=== PATIENT | male | born 1965 | race Caucasian/White ===

== ENCOUNTER 2018-02-23 14:17 | Inpatient (IN) ==
[2018-02-23] MEDS ORDERED: GADOBUTROL 10 MMOL/10 ML VIAL IV ONE (14:18)
[2018-02-23] MEDS ORDERED: PIPERACILLIN SODIUM/TAZOBACTAM 3.375 GM in DEXTROSE 5% IN WATER 50 ML IV ONE (14:46)
[2018-02-23] MEDS ORDERED: VANCOMYCIN PER PHARMACY IV ONE (14:46)
[2018-02-23] MEDS ORDERED: 0.9 % SODIUM CHLORIDE 1,000 ML IV ONE (14:55)
[2018-02-23] MEDS ORDERED: VANCOMYCIN 1,500 MG in 0.9 % SODIUM CHLORIDE 500 ML IV ONE (15:15)
[2018-02-23 15:16] LABS: Basophils # (Auto) 0 K/mcL (0.0-0.3); Basophils % (Auto) 0.3 % (0.0-2.0); Eosinophils # (Auto) 0.1 K/mcL (0.0-0.7); Eosinophils % (Auto) 1.7 % (0.0-7.0); Granulocytes % (Auto) 76.6 % (38.0-78.0); Lymphocytes # (Auto) 1.3 K/mcL (1.5-4.8); Lymphocytes % (Auto) 16.7 % (15.5-49.0); Mean Cell Volume 86.6 fL (80.0-100.0); Mean Corpuscular HGB Conc 33.8 g/dL (31.0-36.0); Mean Corpuscular Hemoglobin 29.3 pg (26.0-34.0); Monocytes # (Auto) 0.4 K/mcL (0.1-0.9); Monocytes % (Auto) 4.7 % (1.0-12.0); Platelet Count 229 K/mcL (140-440); RBC 4.69 M/mcL (4.50-5.90); Red Cell Distribution Width 15.1 % (11.5-14.5)
[2018-02-23] MEDS ORDERED: INSULIN REGULAR, HUMAN 1 UNIT/0.01 ML UNIT SQ ONE (15:23)
[2018-02-23 15:38] LABS: ALT/SGPT 18 U/l (0-40); Albumin 4.2 gm/dL (3.2-5.2); Albumin/Globulin Ratio 1.2 (1.0-2.3); Alkaline Phosphatase 159 U/L (39-117); Blood Urea Nitrogen 17 mg/dl (6-20)
--- NOTE | 2018-02-23 16:10 | XRay Report ---
HISTORY: Reason for Exam:foot pain, ulcer, edema FINDINGS: There is a large ulceration in the skin along the plantar surface of the foot, beneath the first metatarsal. There is no associated bone erosion or periosteal elevation. There are multiple postsurgical or posttraumatic deformities in the metatarsals and phalanges. The head of the first metatarsal is abnormally small and the neck is angulated. There is fragmentation of the proximal phalanx of the first toe. Most of the distal phalanx of the first toe has been removed or reabsorbed. There is chronic near complete resorption at the base of the proximal phalanx of the second toe. This is dislocated medially. The head of the third metatarsal is absent and there is partial resorption at the base of the proximal phalanx of the third toe. The fourth and fifth toes are relatively normal. Tarsal bones are normal. IMPRESSION: Large soft tissue ulceration beneath the first metatarsal but without evidence of osteomyelitis Deformities in the first second and third metatarsals and toes which may be from prior surgery or prior episodes of osteomyelitis Interpreted and Authenticated by: Remington Meadows 02/23/18
--- NOTE | 2018-02-23 16:39 | Emergency Department Note ---
Wound/Laceration HPI - General Chief Complaint: Wound/Laceration Stated Complaint: diabetic foot wound Time Seen by Provider: 02/23/18 14:27 Source: patient, family Mode of arrival: wheelchair Limitations: no limitations - History of Present Illness HPI Narrative: 52-year-old male presents with a infected decubitus ulcer to the right foot. He has been going to wound care for this ulcer for the last 3 months. Over the last 10 days it has been infected. He has tried oral antibiotics and has been seeing wound care outpatient however he is not improving and it is getting worse. He was sent here by Dr. castellanos. No fever chills. No nausea, vomiting , or diarrhea. States it is very odorous and draining. Just prior to arrival he did see Dr. castellanos of the wound care clinic and they did do a debridement and redressed it just prior to his arrival. He is a diabetic and states his blood sugars have been running in the 400s at least the last week or so. - Related Data Home Medications Medication Instructions Recorded Confirmed Lisinopril [Zestril] 30 mg PO DAILY 07/15/16 02/23/18 Simvastatin [Zocor] 20 mg PO DAILY 07/15/16 02/23/18 metFORMIN HCL [Fortamet] 1,000 mg PO BID 07/15/16 02/23/18 Cholecalciferol (Vitamin D3) 1,000 unit PO DAILY 02/23/18 02/23/18 [Vitamin D] Exenatide [Byetta] 10 mcg SQ BID 02/23/18 02/23/18 Hydrochlorothiazide [Oretic] 25 mg PO DAILY 02/23/18 02/23/18 Insulin Detemir [Levemir] 44 unit SQ BID 02/23/18 02/23/18 Testosterone Cypionate [Testone 200 mg IM Q2W 02/23/18 02/23/18 Cik] Allergies Allergy/AdvReac Type Severity Reaction Status Date / Time No Known Drug Allergies Allergy Verified 07/15/16 10:33 Review of Systems All systems ED: reviewed and negative except as stated. Past Medical History - Past Medical History Medical history: Reports: DM, hypertension Surgical history ED: Reports: other (Several orthopedic surgeries including hands and knees) - Social History smoking status: Never smoker Alcohol use: Reports: Rarely Drug use: Reports: none Physical Exam Limitations: no limitations General appearance: alert, in no apparent distress Head: atraumatic, normocephalic, normal inspection Eye: Present: normal appearance. Absent: conjunctival injection ENT: mucous membranes moist Chest: Present: normal inspection, symmetric chest wall rise Respiratory: Present: normal lung sounds bilaterally. Absent: respiratory distress, wheezes, accessory muscle use Cardiovascular: Present: regular rate, normal heart sounds Abdominal: Present: soft, normal bowel sounds. 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 Dressing from wound care is intact. Odor is present there is mild warmth to the right foot diffusely.) Neurological: Present: alert, oriented X3 Psychiatric: Present: normal affect, normal mood Skin: Present: warm, dry, normal color. Absent: intact (See extremity assessment) Course Course Narrative: @1630 I did speak the hospitalist, Dr. Bush, who agrees to see and admit the patient. IV antibiotics have been started and we have ordered an MRI and they will get him in as soon as possible Vital Signs Temperature 97.7 F 02/23/18 14:18 Pulse Rate 98 H 02/23/18 14:18 Respiratory Rate 16 02/23/18 14:18 Blood Pressure 124/78 02/23/18 14:18 Pulse Oximetry (%) 98 02/23/18 14:18 Temperature 97.7 F 02/23/18 14:18 Pulse Rate 85 02/23/18 16:46 Respiratory Rate 21 02/23/18 16:46 Blood Pressure 145/82 02/23/18 16:46 Pulse Oximetry (%) 97 02/23/18 16:46 Wound/Laceration - Lab Data Lab results reviewed: Yes I reviewed the patient's lab results. Result diagrams: 02/23/18 14:40 02/23/18 14:40 Lab Results 02/23/18 02/23/18 02/23/18 Range/Units 14:40 14:40 14:40 WBC 7.6 (4.5-11.0) K/mcL RBC 4.69 (4.50-5.90) M/mcL Hgb 13.7 (13.5-16.5) g/dL Hct 40.7 L (41.0-55.0) % MCV 86.6 (80.0-100.0) fL MCH 29.3 (26.0-34.0) pg MCHC 33.8 (31.0-36.0) g/dL RDW 15.1 H (11.5-14.5) % Plt Count 229 (140-440) K/mcL MPV 8.1 (7.4-10.4) fL Gran % 76.6 (38.0-78.0) % Lymph % (Auto) 16.7 (15.5-49.0) % Childress % (Auto) 4.7 (1.0-12.0) % Eos % (Auto) 1.7 (0.0-7.0) % Baso % (Auto) 0.3 (0.0-2.0) % Gran # 5.8 (1.8-8.0) K/mcL Lymph # (Auto) 1.3 L (1.5-4.8) K/mcL Childress # (Auto) 0.4 (0.1-0.9) K/mcL Eos # (Auto) 0.1 (0.0-0.7) K/mcL Baso # (Auto) 0 (0.0-0.3) K/mcL VBG Lactic Acid 1.9 (0.5-2.2) mmol/L Sodium 133 (133-145) mmol/L Potassium 4.4 (3.3-5.1) mmol/L Chloride 91 L (96-108) mmol/L Carbon Dioxide 29 (22-30) mmol/L Anion Gap 13.0 (8-16) BUN 17 (6-20) mg/dl Creatinine 1.0 (0.7-1.2) mg/dl GFR Calculation 87 Glucose 467 H* (70-105) mg/dL Calcium 9.7 (8.6-10.4) mg/dl Total Bilirubin 0.7 (0.0-1.0) mg/dL AST 14 (0-37) U/l ALT 18 (0-40) U/l Alkaline Phosphatase 159 H (39-117) U/L Total Protein 7.8 (5.9-8.4) gm/dL Albumin 4.2 (3.2-5.2) gm/dL Globulin 3.6 (2.2-3.7) gm/dL Albumin/Globulin Ratio 1.2 (1.0-2.3) - Radiology Data Radiology results reviewed: Yes I reviewed the patient's radiology results. Disposition Pt seen by [employer]/PA only: Yes Clinical Impression: Diabetes, Foot ulcer, Decubitus ulcer, infected Disposition: Xfer As Inpt ([facility]) Condition: Fair Referrals: Kay Anglin ARNP [Primary Care Provider] - Oren Corey MD [Physician] - Time of Disposition: 16:40
--- NOTE | 2018-02-23 17:22 | Emergency Department Note ---
ED Note Addendum Note Addendum: Dr. Verde is here to to give report on his patient will whom he would like to have admitted we will do a debridement of the ulceration. She has been examined and agree with the diagnosis and treatment patient to be admitted to Dr. Bush service
[2018-02-23] MEDS ORDERED: ACETAMINOPHEN 325 MG TABLET PO PRN (18:47)
[2018-02-23] MEDS ORDERED: VANCOMYCIN PER PHARMACY IV SCH (18:47)
[2018-02-23] MEDS ORDERED: POTASSIUM CHLORIDE 20 MEQ PACKET PO PRN (18:47)
[2018-02-23] MEDS ORDERED: MAGNESIUM HYDROXIDE 30 ML ORAL.SUSP PO PRN (18:47)
[2018-02-23] MEDS ORDERED: ONDANSETRON 4 MG/2 ML VIAL IV PRN (18:47)
[2018-02-23] MEDS ORDERED: DEXTROSE 31 GM ORAL.SUSP PO PRN (18:47)
[2018-02-23] MEDS ORDERED: DEXTROSE 50% 50 ML VIAL IV PRN (18:47)
[2018-02-23] MEDS ORDERED: ACETAMINOPHEN 1,000 MG/100 ML BOTTLE IV PRN (18:47)
--- NOTE | 2018-02-23 18:47 | Magnetic Resonance Report ---
History: Diabetic foot ulcer on the plantar surface and status post prior multiple debridement surgeries Technique: Multiplanar imaging was performed using multiple pulse sequences. Findings: There is a moderate-sized ulceration in the skin along the plantar surface of the foot, beneath the proximal and mid shaft of the first and second metatarsals. There is significant cellulitis around the air filled crater and significant thickening of the skin on the plantar surface of the foot. There is no evidence of an abscess. Inflammation involves the plantar aponeurosis and the flexor tendons. There are significant deformities of the first, second and third metatarsals as well as the proximal and distal phalanx of the first toe and the proximal phalanges of the second and third toes. These are described in more detail on the preceding x-ray of the foot. The remaining bones have normal signal in the marrow, without evidence of osteomyelitis. There is no acute fracture. Mild subcutaneous edema seen along the dorsal side of the foot and around the ankle. Impression: Moderate cellulitis along the plantar surface of the foot, surrounding a large skin ulceration located beneath the first and second metatarsals No evidence of acute osteomyelitis or abscess Interpreted and Authenticated by: Remington Meadows 02/23/18
--- NOTE | 2018-02-23 19:38 | Internal Med History&Physical ---
Medical - H&P: [facility] Patient information: Note initiated : 02/23/18 at 7:34 pm Service Date, if different from initiated Date: [] Patient: Bro Malave a 52 y/o M admitted on 02/23/18 for diabetic foot wound. Chief Complaint: [] Chief complaint: Right foot nonhealing ulcer History of present illness: Mr. 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 Patient has not been using his orthotic shoe and over the last few weeks has noted increasing purulence and discharge around the foot ulcer. He has been followed up with Dr. Corey wound care. During today's evaluation patient underwent debridement and was subsequently [facility] for admission light of poor outpatient response to treatment and persistent cellulitis. Initial workup in the ER was essentially unremarkable. Patient was started on vancomycin and Zosyn given history of MRSA. Cultures were sent from wound care clinic during debridement. Wound care physician Dr. Corey will be following during hospitalization.x-ray lower extremity/MRI" unremarkable for acute osteomyelitis/abscess however significant for cellulitis Hospitalist service was consulted for evaluation and admission At the time of evaluation patient is accompanied with her daughter and . He was able to answer most questions. Patient has had amputation in 1999 and subsequently [address] Cormier. He has been continually followed by wound care. On the last few days he has noticed increasing discharge/purulence along with increasing size of the ulcer. He denies associated fevers shaking chills or leg redness. He denies any other joint swelling and rash headache or photophobia. He denies recent trauma but has been continually bearing weight and not using his orthotics review of systems 10 point review of system was performed and is negative except for ones discussed above Medical - H&P: PMH Medical history: insulin-dependent diabetes peripheral vascular disease Hyperlipidemia Hypertension prior amputation right fourth and fifth toe Social history: lives with family Nonsmoker nondrinker No history of substance abuse Medical - H&P: Meds Home Medications Medication Instructions Recorded Confirmed Type Lisinopril [Zestril] 30 mg PO DAILY 07/15/16 02/23/18 History Simvastatin [Zocor] 20 mg PO DAILY 07/15/16 02/23/18 History metFORMIN HCL [Fortamet] 1,000 mg PO BID 07/15/16 02/23/18 History Cholecalciferol (Vitamin D3) 1,000 unit PO DAILY 02/23/18 02/23/18 History [Vitamin D] Exenatide [Byetta] 10 mcg SQ BID 02/23/18 02/23/18 History Hydrochlorothiazide [Oretic] 25 mg PO DAILY 02/23/18 02/23/18 History Insulin Detemir [Levemir] 44 unit SQ BID 02/23/18 02/23/18 History Testosterone Cypionate [Testone 200 mg IM Q2W 02/23/18 02/23/18 History Cik] Allergies Allergy/AdvReac Type Severity Reaction Status Date / Time No Known Drug Allergies Allergy Verified 07/15/16 10:33 Medical - H&P: Exam - Constitutional Vitals: Temp Pulse Resp BP Pulse Ox 97.7 F 86 18 136/60 96 02/23/18 14:18 02/23/18 17:16 02/23/18 17:16 02/23/18 17:16 02/23/18 17:16 General appearance: morbidly obese Exam: pupils symmetric oral cavity dry No ear or nose discharge neck no lymphadenopathy S1 and S2 regular rhythm chest clear to auscultation Abdomen soft pendulous Right lower extremity foot covered in dressing post-debridement No lymphedema cyanosis or clubbing Skin no suspicious lesion Psych alert cooperative Neuro nonfocal Medical - H&P: Reslt - Labs CBC & Chem 7: 02/23/18 14:40 02/23/18 14:40 Labs: Short CBC 02/23/18 Range/Units 14:40 WBC 7.6 (4.5-11.0) K/mcL Hgb 13.7 (13.5-16.5) g/dL Hct 40.7 L (41.0-55.0) % Plt Count 229 (140-440) K/mcL BMP 02/23/18 14:40 Sodium 133 Potassium 4.4 Chloride 91 L Carbon Dioxide 29 BUN 17 Creatinine 1.0 Glucose 467 H* Calcium 9.7 Liver Function 02/23/18 Range/Units 14:40 Total Bilirubin 0.7 (0.0-1.0) mg/dL AST 14 (0-37) U/l ALT 18 (0-40) U/l Alkaline Phosphatase 159 H (39-117) U/L Albumin 4.2 (3.2-5.2) gm/dL - Impressions MRI right foot-no evidence ostiomyelitis. Surrounding cellulitis Medical - H&P: A/P (1) Non-healing ulcer of right foot Current visit: Yes Status: Acute * Nonhealing right foot ulcer. Continue antibiotic coverage. Status post debridement by wound care physician. Admit as observation. PICC line placement. wound care physician on board * right lower wrist with cellulitis-continue antibiotic coverage. PICC line placement * Poorly controlled DM type II-continue home regime including Byetta/Detemir/ sliding-scale insulin/metformin * Hypertension on lisinopril/thiazide * hyperlipidemia on statin * Full code * Prophylaxis heparin plan * antibiotic coverage * PICC line placement * Wound care consult * pre-existing medical condition management as above * Admitted as observation
[2018-02-23] MEDS: SENNOSIDES/DOCUSATE SODIUM 1 TAB TABLET PO SCH (20:26)
[2018-02-23] MEDS: HEPARIN 5,000 UNIT/ML VIAL SQ SCH (20:26)
[2018-02-23] MEDS: DOCUSATE SODIUM 100 MG CAPSULE PO SCH (20:26)
[2018-02-23] MEDS: INSULIN GLARGINE, HUMAN 1 UNIT/0.01 ML SQ SCH (20:26)
[2018-02-23] MEDS: 0.9 % SODIUM CHLORIDE 10 ML SYRINGE IV SCH (20:27)
[2018-02-23] MEDS: INSULIN LISPRO 1 UNIT/0.01 ML UNIT SQ SCH (20:27)
[2018-02-23] MEDS ORDERED: INSULIN DETEMIR SQ SCH (21:00)
[2018-02-24] MEDS: PIPERACILLIN SODIUM/TAZOBACTAM 3.375 GM in DEXTROSE 5% IN WATER 50 ML IV SCH ×5 (00:26→23:15)
[2018-02-24] MEDS: 0.9 % SODIUM CHLORIDE 10 ML SYRINGE IV SCH ×4 (06:01→21:12)
[2018-02-24 06:37] LABS: Mean Cell Volume 85.8 fL (80.0-100.0); Mean Corpuscular HGB Conc 34.5 g/dL (31.0-36.0); Mean Corpuscular Hemoglobin 29.5 pg (26.0-34.0); Platelet Count 188 K/mcL (140-440); Red Cell Distribution Width 15.1 % (11.5-14.5)
[2018-02-24 07:22] LABS: ALT/SGPT 15 U/l (0-40); Albumin 3.2 gm/dL (3.2-5.2); Alkaline Phosphatase 123 U/L (39-117); Bilirubin,Direct < 0.2 mg/dL (0.0-0.3); Blood Urea Nitrogen 14 mg/dl (6-20); Gamma Glutamyl Transpeptidase 69 U/L (8-61); Uric Acid 7.5 mg/dL (2.5-8.0)
[2018-02-24] MEDS ORDERED: EXENATIDE 10 MCG SC SCH (07:30)
[2018-02-24 07:48] LABS: Eosinophils % (Manual) 2 % (0-7); Lymphocytes % 28 % (15-49); Monocytes % (Manual) 5 % (1-12); Platelet Estimate NORMAL (NORMAL); RBC Morphology ABNORM (NORMAL); Segmented Neutrophils % 63 % (38-78)
[2018-02-24] MEDS: metFORMIN 500 MG TABLET PO SCH ×2 (08:00→18:00)
[2018-02-24] MEDS: INSULIN LISPRO 1 UNIT/0.01 ML UNIT SQ SCH ×4 (08:54→21:06)
[2018-02-24] MEDS: sitaGLIPtin 100 MG TABLET PO SCH (08:57)
[2018-02-24] MEDS: LISINOPRIL 10 MG TABLET PO SCH (08:58)
[2018-02-24] MEDS: DOCUSATE SODIUM 100 MG CAPSULE PO SCH ×2 (08:58→21:06)
[2018-02-24] MEDS: MULTIVIT,THER IRON,CA,FA & MIN 1 TABLET PO SCH (08:58)
[2018-02-24] MEDS: HYDROCHLOROTHIAZIDE 25 MG TABLET PO SCH (08:58)
[2018-02-24] MEDS: HEPARIN 5,000 UNIT/ML VIAL SQ SCH ×2 (08:59→21:06)
[2018-02-24] MEDS ORDERED: SIMVASTATIN 20 MG TABLET PO SCH (09:00)
[2018-02-24] MEDS: INSULIN GLARGINE, HUMAN 1 UNIT/0.01 ML SQ SCH ×2 (09:00→21:07)
[2018-02-24] MEDS: VANCOMYCIN 1,500 MG in 0.9 % SODIUM CHLORIDE 500 ML IV SCH ×2 (09:00→20:54)
--- NOTE | 2018-02-24 09:04 | General Surgery Consult Note ---
History of Present Illness Patient information: Note initiated : 02/24/18 at 9:00 am Service Date, if different from initiated Date: [] Patient: Bro Malave 52 y/o M admitted on 02/23/18 for diabetic foot wound. Chief Complaint: [] Consult date: 02/24/18 Requesting physician: Milad Guajardo (Wound Care / HBO) History of present illness: 52/M CSSSI, DFU right plantar Mixon 3 with necrotizing skin and sub cutaneous infection with SEPSIS and uncontrolled diabetes. Patient was referred from wound center to ER and now admitted to Hospitalist service for further management and continuity of care. I reviewed him lab results and imaging studies of RIGHT foot MRI and X Ray. I discussed the plan of care with Katlin IBARRA I/C and with Dr. Guajardo, Hospitalist Physician. Medications and Allergies Home Medications Medication Instructions Recorded Confirmed Type Lisinopril [Zestril] 30 mg PO DAILY 07/15/16 02/23/18 History Simvastatin [Zocor] 20 mg PO DAILY 07/15/16 02/23/18 History metFORMIN HCL [Fortamet] 1,000 mg PO BID 07/15/16 02/23/18 History Cholecalciferol (Vitamin D3) 1,000 unit PO DAILY 02/23/18 02/23/18 History [Vitamin D] Exenatide [Byetta] 10 mcg SQ BID 02/23/18 02/23/18 History Hydrochlorothiazide [Oretic] 25 mg PO DAILY 02/23/18 02/23/18 History Insulin Detemir [Levemir] 44 unit SQ BID 02/23/18 02/23/18 History Allergies Allergy/AdvReac Type Severity Reaction Status Date / Time No Known Drug Allergies Allergy Verified 07/15/16 10:33 Exam Temp Pulse Resp BP Pulse Ox 97.7 F 65 16 127/74 95 02/24/18 04:00 02/24/18 04:00 02/24/18 04:00 02/24/18 04:00 02/24/18 04:00 - General physical appearance well developed, well nourished, no distress, no pain - Eyes PERRL, normal ocular movement - ENT normal pinna, normal nares, normal mucosa, no congestion - Head Head exam IM: Present: atraumatic, normal inspection, normocephalic - Neck no masses, no bruits, trachea midline, no lymphadectomy, no venous distension - Cardiovascular Cardiovascular exam IM: Present: normal rate and rhythm - Respiratory normal expansion, normal respiratory effort, clear to auscultation - Abdomen Abdomen: Present: soft, non tender, bowel sounds - Integumentary Present: other (RIGHT plantar necrotizing wound with cellulitis and DFU Mixon 3. ) - Neurologic Present: other (Non focal neurological examination. DIABETES with polyneuropathy of feet, ankle and lower legs. ) - Musculoskeletal Present: normal posture (NON pal bearing on RIGHT foot. ), other - Psychiatric Present: oriented to time, oriented to person, oriented to place, speech is normal, memory intact Results - Labs 02/26/18 05:20 02/26/18 05:20 Abnormal lab results 02/23/18 02/23/18 02/24/18 Range/Units 14:40 14:40 04:45 RBC 4.00 L (4.50-5.90) M/mcL Hgb 11.8 L (13.5-16.5) g/dL Hct 40.7 L 34.3 L (41.0-55.0) % RDW 15.1 H 15.1 H (11.5-14.5) % Lymph # (Auto) 1.3 L (1.5-4.8) K/mcL RBC Morphology Abnorm A (NORMAL) Polychromasia 1+ A (NONE SEEN) Chloride 91 L (96-108) mmol/L Glucose 467 H* (70-105) mg/dL Magnesium (1.6-2.5) mg/dL GGT (8-61) U/L Alkaline Phosphatase 159 H (39-117) U/L Triglycerides (<150) mg/dl 02/24/18 Range/Units 04:45 RBC (4.50-5.90) M/mcL Hgb (13.5-16.5) g/dL Hct (41.0-55.0) % RDW (11.5-14.5) % Lymph # (Auto) (1.5-4.8) K/mcL RBC Morphology (NORMAL) Polychromasia (NONE SEEN) Chloride (96-108) mmol/L Glucose 288 H (70-105) mg/dL Magnesium 1.5 L (1.6-2.5) mg/dL GGT 69 H (8-61) U/L Alkaline Phosphatase 123 H (39-117) U/L Triglycerides 506 H (<150) mg/dl Diabetes panel 02/23/18 02/24/18 Range/Units 14:40 04:45 Sodium 133 136 (133-145) mmol/L Potassium 4.4 3.8 (3.3-5.1) mmol/L Chloride 91 L 97 (96-108) mmol/L Carbon Dioxide 29 26 (22-30) mmol/L BUN 17 14 (6-20) mg/dl Creatinine 1.0 0.9 (0.7-1.2) mg/dl Glucose 467 H* 288 H (70-105) mg/dL Calcium 9.7 9.1 (8.6-10.4) mg/dl AST 14 15 (0-37) U/l ALT 18 15 (0-40) U/l Alkaline Phosphatase 159 H 123 H (39-117) U/L Total Protein 7.8 6.4 (5.9-8.4) gm/dL Albumin 4.2 3.2 (3.2-5.2) gm/dL Triglycerides 506 H (<150) mg/dl Calcium panel 02/23/18 02/24/18 Range/Units 14:40 04:45 Calcium 9.7 9.1 (8.6-10.4) mg/dl Phosphorus 3.9 (2.7-4.5) mg/dL Albumin 4.2 3.2 (3.2-5.2) gm/dL Pituitary panel 02/23/18 02/24/18 Range/Units 14:40 04:45 Sodium 133 136 (133-145) mmol/L Potassium 4.4 3.8 (3.3-5.1) mmol/L Chloride 91 L 97 (96-108) mmol/L Carbon Dioxide 29 26 (22-30) mmol/L BUN 17 14 (6-20) mg/dl Creatinine 1.0 0.9 (0.7-1.2) mg/dl Glucose 467 H* 288 H (70-105) mg/dL Calcium 9.7 9.1 (8.6-10.4) mg/dl Adrenal panel 02/23/18 02/24/18 Range/Units 14:40 04:45 Sodium 133 136 (133-145) mmol/L Potassium 4.4 3.8 (3.3-5.1) mmol/L Chloride 91 L 97 (96-108) mmol/L Carbon Dioxide 29 26 (22-30) mmol/L BUN 17 14 (6-20) mg/dl Creatinine 1.0 0.9 (0.7-1.2) mg/dl Glucose 467 H* 288 H (70-105) mg/dL Calcium 9.7 9.1 (8.6-10.4) mg/dl Total Bilirubin 0.7 0.6 (0.0-1.0) mg/dL AST 14 15 (0-37) U/l ALT 18 15 (0-40) U/l Alkaline Phosphatase 159 H 123 H (39-117) U/L Total Protein 7.8 6.4 (5.9-8.4) gm/dL Albumin 4.2 3.2 (3.2-5.2) gm/dL All other labs normal. Assessment and Plan (1) Sepsis, polymicrobial Status: Acute Priority: High (2) Sepsis affecting skin Status: Acute Priority: High Comment: Assessment: DFU Mixon 3 with CSSSI and uncontrolled diabetes and Necrotizing skin infection of RIGHT foot. Plan: Patient is status post INITIAL debridement in clinic and now admitted to Med Surg Floor for ongoing continuity of wound care, IV antibiotics and HBOT Will be following this patient whilst he is in hospital, and for HBOT.
[2018-02-24] MEDS: MAGNESIUM SULFATE 2 GM/50 ML BAG IV PRN (11:23)
--- NOTE | 2018-02-24 14:14 | Internal Med Progress Note ---
Medical - PN: Subj Patient information: Note initiated : 02/24/18 at 2:11 pm Service Date, if different from initiated Date: [] Patient: Bro Malave a 52 y/o M admitted on 02/24/18 for diabetic foot wound. Chief Complaint: [] Interval history: Mr. 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 Patient has not been using his orthotic shoe and over the last few weeks has noted increasing purulence and discharge around the foot ulcer. He has been followed up with Dr. Corey wound care. During today's evaluation patient underwent debridement and was subsequently directed to [facility] for admission light of poor outpatient response to treatment and persistent cellulitis. Initial workup in the ER was essentially unremarkable. Patient was started on vancomycin and Zosyn given history of MRSA. Cultures were sent from wound care clinic during debridement. Wound care physician Dr. Corey will be following during hospitalization.x-ray lower extremity/MRI" unremarkable for acute osteomyelitis/abscess however significant for cellulitis Hospitalist service was consulted for evaluation and admission At the time of evaluation patient is accompanied with her daughter and . He was able to answer most questions. Patient has had amputation in 1999 and subsequently [address] Cormier. He has been continually followed by wound care. On the last few days he has noticed increasing discharge/purulence along with increasing size of the ulcer. He denies associated fevers shaking chills or leg redness. He denies any other joint swelling and rash headache or photophobia. He denies recent trauma but has been continually bearing weight and not using his orthotics 02/24- putrid discharge plantar aspect. Case reviewed with wound care physician Dr. Corey. Patient will be started on hyperbaric oxygen treatment per Dr. Corey. Doppler lower extremity ultrasound pending. On broad antibiotic coverage. Place PICC line for IV antibiotics. Transfer to inpatient status due to failed outpatient treatment and worsening necrotizing cellulitis. Include gram-negative and anaerobic coverage. - Constitutional Vitals: Vital Signs Temp Pulse Resp BP Pulse Ox 97.5 F 65 16 127/72 96 02/24/18 12:29 02/24/18 12:00 02/24/18 12:00 02/24/18 12:00 02/24/18 12:00 Period Temp Pulse Resp BP Sys/Crzu Pulse Ox Last 24 Hr 97.5 F-98.1 F 65-98 12-23 105-163/60-93 90-98 Intake and Output 02/24/18 02/24/18 02/24/18 05:59 13:59 21:59 Intake Total 1105 / 1105 600 / 600 Balance 1105 / 1105 600 / 600 Intake & Output: Intake & Output 02/24/18 02/24/18 02/24/18 05:59 13:59 21:59 Intake Total 1105 / 1105 600 / 600 Balance 1105 / 1105 600 / 600 Intake: IV 50 / 50 600 / 600 Zosyn 3.375 gm In Dextrose 5% 50 / 50 50 / 50 in Water 50 ml @ 100 mls/hr IV Q6H [facility] Rx#:[id number] Vancomycin 1,500 mg In Sodium 500 / 500 Chloride 0.9% 500 ml @ 333.3 mls/hr IV Q12H [facility] Rx#: [id number] Oral 1055 / 1055 General appearance: no acute distress Exam: lrightfoot foul-smelling discharge alert oriented Morbidly obese Nonlabored breathing No anxiety Medical - PN: Obj Da - Labs CBC & Chem 7: 02/24/18 04:45 02/24/18 04:45 Labs: Abnormal Lab Results 02/24/18 02/24/18 02/23/18 04:45 04:45 14:40 RBC 4.00 L Hgb 11.8 L Hct 34.3 L RDW 15.1 H Lymph # (Auto) RBC Morphology Abnorm A Polychromasia 1+ A Chloride 91 L Glucose 288 H 467 H* Magnesium 1.5 L GGT 69 H Alkaline Phosphatase 123 H 159 H Triglycerides 506 H 02/23/18 14:40 RBC Hgb Hct 40.7 L RDW 15.1 H Lymph # (Auto) 1.3 L RBC Morphology Polychromasia Chloride Glucose Magnesium GGT Alkaline Phosphatase Triglycerides Meds: Medications Acetaminophen (Tylenol) 650 mg PO Q4-6HP PRN PRN Reason: PAIN/FEVER > 101 Dextrose (Dextrose 50%) 0 ml IV UD PRN PRN Reason: Hypoglycemia Diagnostic Test (Pha) (Accu-Chek) 1 each FS ACHS [facility] Last Admin: 02/24/18 12:13 Dose: 1 each Docusate Sodium (Colace) 100 mg PO BID [facility] Last Admin: 02/24/18 08:58 Dose: 100 mg Glucose (Insta-Glucose) 15 gm PO PRN PRN PRN Reason: Hypoglycemia Heparin Sodium (Porcine) (Heparin) 5,000 unit SQ Q12 [facility] Last Admin: 02/24/18 08:59 Dose: 5,000 unit Hydrochlorothiazide (Oretic) 25 mg PO DAILY [facility] Last Admin: 02/24/18 08:58 Dose: 25 mg Magnesium Sulfate (Magnesium Sulfate) 2 gm in 50 mls @ 50 mls/hr IV UD PRN PRN Reason: MG = or < 1.7 Last Infusion: 02/24/18 12:33 Dose: Infused Acetaminophen (Ofirmev) 1,000 mg in 100 mls @ 200 mls/hr IV Q6HP PRN PRN Reason: PAIN/FEVER > 101 Piperacillin Sod/Tazobactam (Sod 3.375 gm/ Dextrose) 50 mls @ 100 mls/hr IV Q6H [facility] Last Admin: 02/24/18 12:38 Dose: 150 mls/hr Vancomycin HCl 1,500 mg/ (Sodium Chloride) 500 mls @ 333.3 mls/hr IV Q12H [facility] Last Infusion: 02/24/18 11:24 Dose: Infused Gentamicin Sulfate 40 mg/Clindamycin Phosphate 300 mg/Bacitracin 25,000 unit/ Sodium Chloride 503 mls @ 0 mls/hr IRR Q12 [facility] PRN Reason: As Directed Insulin Glargine (Lantus) 44 unit SQ BID [facility] Last Admin: 02/24/18 09:00 Dose: 44 unit Insulin Human Lispro (Humalog) 0 unit SQ ACHS [facility] PRN Reason: Protocol Last Admin: 02/24/18 08:54 Dose: 10 unit Iron Carb/Multivit/[place]/Folic Acid (Multivitamin W/Minerals) 1 tab PO DAILY [facility] Last Admin: 02/24/18 08:58 Dose: 1 tab Lisinopril (Zestril) 30 mg PO DAILY [facility] Last Admin: 02/24/18 08:58 Dose: 30 mg Magnesium Hydroxide (Milk Of Magnesia) 30 ml PO HSP PRN PRN Reason: Constipation [facility] Last Admin: 04/10/18 08:00 Dose: 1,000 mg Ondansetron HCl (Zofran) 4 mg IV Q4-6HP PRN PRN Reason: Nausea And Vomiting Exenatide [Byetta] (10 Mcg Inj) 10 dose SC BIDAC [facility] Last Admin: 02/24/18 08:57 Dose: Not Given Potassium Chloride (Klor-Con) 40 meq PO DAILYP PRN PRN Reason: K+ < 3.5 Last Admin: 02/24/18 09:00 Dose: 40 meq Senna/Docusate Sodium (Senna Plus Tablet) 1 tab PO HS [facility] Last Admin: 02/23/18 20:26 Dose: 1 tab Simvastatin (Zocor) 20 mg PO HS [facility] Sitagliptin Phosphate (Januvia) 100 mg PO DAILY [facility] Last Admin: 02/24/18 08:57 Dose: 100 mg Sodium Chloride (Saline Flush) 10 ml IV Q8 [facility] Last Admin: 02/24/18 06:01 Dose: 10 ml Vancomycin HCl (Vancomycin Per Pharmacy) 1 order IV UD [facility] Medical - PN: A/P - Time Spent With Patient Total time spent is greater than 50% in coordination of care (as documented) at patient's floor/unit and/or counseling patient: 25 - 35 minutes (1) Non-healing ulcer of right foot Status: Acute Assessment and plan: * Necrotizing diabetic cellulitis right foot-on antibiotic coverage including Zosyn/vancomycin for anaerobic and gram-negative coverage.transfer to inpatient status * Nonhealing diabetic ulcer- Doppler arterial ultrasound to evaluate hypoperfusion. MRI no evidence of osteomyelitis * Poorly controlled DM type II-continue basal prandial insulin/Byetta. Diabetic diet. Blood sugars at 288. increased basal insulin by 20%- 52 twice a day * history of hypertension on lisinopril/thiazide * Hyperlipidemia on statin * Prophylaxis heparin PLAN * antibiotic coverage * right lower extremity Doppler arterial ultrasound * increase Lantus by 20% * Pre-existing medical condition management as above * Wound care per Dr. Corey * PICC line placement * Transfer to inpatient status Current Visit: Yes
[2018-02-24] MEDS: GENTAMICIN SULFATE 40 MG, CLINDAMYCIN 300 MG, BACITRACIN 25,000 UNIT in SODIUM CHLORIDE... IRR SCH ×3 (16:00→21:11)
[2018-02-24] MEDS: EXENATIDE 10 MCG SC SCH (16:20)
--- NOTE | 2018-02-24 17:54 | Ultrasound Report ---
History: Nonhealing wound in the right foot Findings: Duplex ultrasound was performed from the distal abdominal aorta to the calf. Normal flow velocities are present from the aorta, through the iliac, femoral, popliteal and calf arteries. Doppler shows normal waveform patterns. There is no evidence of stenosis and no plaque formation is seen. Impression: Normal right leg duplex arterial ultrasound Interpreted and Authenticated by: Remington Meadows 02/24/18
[2018-02-24] MEDS: SIMVASTATIN 20 MG TABLET PO SCH (21:06)
[2018-02-24] MEDS: SENNOSIDES/DOCUSATE SODIUM 1 TAB TABLET PO SCH (21:06)
[2018-02-25] MEDS: PIPERACILLIN SODIUM/TAZOBACTAM 3.375 GM in DEXTROSE 5% IN WATER 50 ML IV SCH ×4 (06:01→23:22)
[2018-02-25] MEDS: 0.9 % SODIUM CHLORIDE 10 ML SYRINGE IV SCH ×5 (06:01→21:05)
[2018-02-25 06:56] LABS: Mean Cell Volume 86.3 fL (80.0-100.0); Mean Corpuscular HGB Conc 34.8 g/dL (31.0-36.0); Platelet Count 181 K/mcL (140-440); Red Cell Distribution Width 14.8 % (11.5-14.5)
[2018-02-25] MEDS: INSULIN LISPRO 1 UNIT/0.01 ML UNIT SQ SCH ×4 (07:29→21:04)
[2018-02-25 07:35] LABS: ALT/SGPT 19 U/l (0-40); Albumin 3.3 gm/dL (3.2-5.2); Albumin/Globulin Ratio 1.1 (1.0-2.3); Alkaline Phosphatase 111 U/L (39-117); Bilirubin,Direct < 0.2 mg/dL (0.0-0.3); Blood Urea Nitrogen 13 mg/dl (6-20); Gamma Glutamyl Transpeptidase 64 U/L (8-61); Uric Acid 6.1 mg/dL (2.5-8.0)
[2018-02-25] MEDS: EXENATIDE 10 MCG SC SCH ×2 (07:48→17:44)
[2018-02-25] MEDS: metFORMIN 500 MG TABLET PO SCH ×2 (07:48→17:44)
[2018-02-25] MEDS: INSULIN GLARGINE, HUMAN 1 UNIT/0.01 ML SQ SCH ×2 (07:49→21:04)
[2018-02-25 08:40] LABS: Band Neutrophils % 2 % (0-10); Eosinophils % (Manual) 1 % (0-7); Lymphocytes % 24 % (15-49); Monocytes % (Manual) 5 % (1-12); Platelet Estimate NORMAL (NORMAL); RBC Morphology ABNORM (NORMAL); Segmented Neutrophils % 66 % (38-78)
[2018-02-25] MEDS: MAGNESIUM SULFATE 2 GM/50 ML BAG IV PRN (09:14)
[2018-02-25] MEDS: HEPARIN 5,000 UNIT/ML VIAL SQ SCH ×2 (09:15→21:04)
[2018-02-25] MEDS: LISINOPRIL 10 MG TABLET PO SCH (09:15)
[2018-02-25] MEDS: MULTIVIT,THER IRON,CA,FA & MIN 1 TABLET PO SCH (09:15)
[2018-02-25] MEDS: DOCUSATE SODIUM 100 MG CAPSULE PO SCH ×2 (09:16→21:03)
[2018-02-25] MEDS: sitaGLIPtin 100 MG TABLET PO SCH (09:16)
[2018-02-25] MEDS: HYDROCHLOROTHIAZIDE 25 MG TABLET PO SCH (09:16)
[2018-02-25] MEDS: GENTAMICIN SULFATE 40 MG, CLINDAMYCIN 300 MG, BACITRACIN 25,000 UNIT in SODIUM CHLORIDE... IRR SCH ×2 (09:16→23:21)
[2018-02-25] MEDS: VANCOMYCIN 1,500 MG in 0.9 % SODIUM CHLORIDE 500 ML IV SCH ×2 (10:50→21:05)
--- NOTE | 2018-02-25 15:44 | Internal Med Progress Note ---
Medical - PN: Subj Patient information: Note initiated : 02/25/18 at 3:42 pm Service Date, if different from initiated Date: [] Patient: Bro Malave a 52 y/o M admitted on 02/24/18 for Diabetic Foot Wound/Nonhealing Right Foot Ulcer. Chief Complaint: [] Interval history: Mr. Malave is a 52 year old M history of poorly controlled diabetes and chronic nonhealing right foot ulcer/prior amputation of right big toe. Patient has not been using his orthotic shoe and over the last few weeks has noted increasing purulence and discharge around the foot ulcer. He has been followed up with Dr. Corey wound care. During today's evaluation patient underwent debridement and [facility] light of poor outpatient response to treatment and persistent cellulitis. Initial workup in the ER was essentially unremarkable. Patient was started on vancomycin and Zosyn given history of MRSA. Cultures were sent from wound care clinic during debridement. Wound care physician Dr. Corey will be following during hospitalization.x-ray lower extremity/MRI" unremarkable for acute osteomyelitis/abscess however significant for cellulitis Hospitalist service was consulted for evaluation and admission At the time of evaluation patient is accompanied with her daughter and . He was able to answer most questions. Patient has had amputation in 1999 and subsequently [address] Cormier. He has been continually followed by wound care. On the last few days he has noticed increasing discharge/purulence along with increasing size of the ulcer. He denies associated fevers shaking chills or leg redness. He denies any other joint swelling and rash headache or photophobia. He denies recent trauma but has been continually bearing weight and not using his orthotics 02/24- putrid discharge plantar aspect. Case reviewed with wound care physician Dr. Corey. Patient will be started on hyperbaric oxygen treatment per Dr. Corey. Doppler lower extremity ultrasound pending. On broad antibiotic coverage. Place PICC line for IV antibiotics. Transfer to inpatient status due to failed outpatient treatment and worsening necrotizing cellulitis. Include gram-negative and anaerobic coverage. February 25- patient undergoing hyperbaric oxygen treatments. Wound management per wound care. On IV antibiotic.wound culture gram-positive cocci.stable labs/ hemodynamics. Afebrile. No overnight events.blood sugars improving with higher doses of Lantus.. Blood sugar down from 467-194. no family at the site. No concerns expressed by nursing staff - Constitutional Vitals: Vital Signs Temp Pulse Resp BP Pulse Ox 97.8 F 74 16 143/66 94 02/25/18 11:35 02/25/18 11:35 02/25/18 11:35 02/25/18 11:35 02/25/18 11:35 Period Temp Pulse Resp BP Sys/Cruz Pulse Ox Last 24 Hr 96.9 F-97.8 F 70-84 16-16 117-150/61-84 94-96 Intake and Output 02/25/18 02/25/18 02/25/18 05:59 13:59 21:59 Intake Total 550 / 550 530 / 530 Balance 550 / 550 530 / 530 Weight 298 lb 8 oz 298 lb 8 oz Patient Weight 02/26/18 05:59 Weight 298 lb 8 oz Intake & Output: Intake & Output 02/25/18 02/25/18 02/25/18 05:59 13:59 21:59 Intake Total 550 / 550 530 / 530 Balance 550 / 550 530 / 530 Weight 298 lb 8 oz 298 lb 8 oz Intake: IV 550 / 550 50 / 50 Zosyn 3.375 gm In Dextrose 5% 50 / 50 50 / 50 in Water 50 ml @ 100 mls/hr IV Q6H [facility] Rx#:[id number] Vancomycin 1,500 mg In Sodium 500 / 500 Chloride 0.9% 500 ml @ 333.3 mls/hr IV Q12H [facility] Rx#: [id number] Oral 0 / 0 480 / 480 Other: Meal Breakfast Percent of Meal Consumed 100% Feeding Ability Independent # Voids 4 General appearance: morbidly obese, no acute distress Exam: Alert oriented nonlabored breathing Foul-smelling discharge right foot No anxiety Medical - PN: Obj Da - Labs CBC & Chem 7: 02/25/18 06:15 02/25/18 06:15 Labs: Abnormal Lab Results 02/25/18 02/25/18 02/24/18 06:15 06:15 04:45 RBC 4.00 L Hgb 12.0 L Hct 34.5 L RDW 14.8 H Lymph # (Auto) RBC Morphology Abnorm A Polychromasia 1+ A Chloride Glucose 194 H 288 H Magnesium 1.5 L 1.5 L GGT 64 H 69 H Alkaline Phosphatase 123 H Triglycerides 528 H 506 H 02/24/18 02/23/18 02/23/18 04:45 14:40 14:40 RBC 4.00 L Hgb 11.8 L Hct 34.3 L 40.7 L RDW 15.1 H 15.1 H Lymph # (Auto) 1.3 L RBC Morphology Abnorm A Polychromasia 1+ A Chloride 91 L Glucose 467 H* Magnesium GGT Alkaline Phosphatase 159 H Triglycerides Meds: Medications Acetaminophen (Tylenol) 650 mg PO Q4-6HP PRN PRN Reason: PAIN/FEVER > 101 Dextrose (Dextrose 50%) 0 ml IV UD PRN PRN Reason: Hypoglycemia Diagnostic Test (Pha) (Accu-Chek) 1 each FS ACHS [facility] Last Admin: 02/25/18 12:40 Dose: Not Given Docusate Sodium (Colace) 100 mg PO BID [facility] Last Admin: 02/25/18 09:16 Dose: 100 mg Glucose (Insta-Glucose) 15 gm PO PRN PRN PRN Reason: Hypoglycemia Heparin Sodium (Porcine) (Heparin) 5,000 unit SQ Q12 [facility] Last Admin: 02/25/18 09:15 Dose: 5,000 unit Heparin Sodium (Porcine) (Heparin Flush) 2 ml IV Q12 [facility] Last Admin: 02/25/18 09:16 Dose: Not Given Hydrochlorothiazide (Oretic) 25 mg PO DAILY [facility] Last Admin: 02/25/18 09:16 Dose: 25 mg Magnesium Sulfate (Magnesium Sulfate) 2 gm in 50 mls @ 50 mls/hr IV UD PRN PRN Reason: MG = or < 1.7 Last Admin: 02/25/18 09:14 Dose: 50 mls/hr Acetaminophen (Ofirmev) 1,000 mg in 100 mls @ 200 mls/hr IV Q6HP PRN PRN Reason: PAIN/FEVER > 101 Piperacillin Sod/Tazobactam (Sod 3.375 gm/ Dextrose) 50 mls @ 100 mls/hr IV Q6H [facility] Last Admin: 02/25/18 12:00 Dose: 50 mls/hr Vancomycin HCl 1,500 mg/ (Sodium Chloride) 500 mls @ 333.3 mls/hr IV Q12H [facility] Last Admin: 02/25/18 10:50 Dose: 250 mls/hr Gentamicin Sulfate 40 mg/Clindamycin Phosphate 300 mg/Bacitracin 25,000 unit/ Sodium Chloride 503 mls @ 0 mls/hr IRR Q12 [facility] PRN Reason: As Directed Last Admin: 02/25/18 09:16 Dose: 100 mls/hr Insulin Glargine (Lantus) 52 unit SQ BID [facility] Last Admin: 02/25/18 07:49 Dose: 52 unit Insulin Human Lispro (Humalog) 0 unit SQ ACHS [facility] PRN Reason: Protocol Last Admin: 02/25/18 12:41 Dose: Not Given Iron Carb/Multivit/[place]/Folic Acid (Multivitamin W/Minerals) 1 tab PO DAILY [facility] Last Admin: 02/25/18 09:15 Dose: 1 tab Lisinopril (Zestril) 30 mg PO DAILY [facility] Last Admin: 02/25/18 09:15 Dose: 30 mg Magnesium Hydroxide (Milk Of Magnesia) 30 ml PO HSP PRN PRN Reason: Constipation Metformin HCl (Glucophage) 1,000 mg PO BIDCC [facility] Last Admin: 02/25/18 07:48 Dose: 1,000 mg Ondansetron HCl (Zofran) 4 mg IV Q4-6HP PRN PRN Reason: Nausea And Vomiting Exenatide [Byetta] (10 Mcg Inj) 1 dose SC BIDAC [facility] Last Admin: 02/25/18 07:48 Dose: 1 dose Potassium Chloride (Klor-Con) 40 meq PO DAILYP PRN PRN Reason: K+ < 3.5 Last Admin: 02/24/18 09:00 Dose: 40 meq Senna/Docusate Sodium (Senna Plus Tablet) 1 tab PO HS [facility] Last Admin: 02/24/18 21:06 Dose: 1 tab Simvastatin (Zocor) 20 mg PO HS [facility] Last Admin: 02/24/18 21:06 Dose: 20 mg Sitagliptin Phosphate (Januvia) 100 mg PO DAILY [facility] Last Admin: 02/25/18 09:16 Dose: 100 mg Sodium Chloride (Saline Flush) 10 ml IV Q8 [facility] Last Admin: 02/25/18 06:01 Dose: 10 ml Sodium Chloride (Saline Flush) 10 ml IV UD PRN PRN Reason: FLUSH Sodium Chloride (Saline Flush) 10 ml IV Q12 [facility] Last Admin: 02/25/18 10:03 Dose: 10 ml Vancomycin HCl (Vancomycin Per Pharmacy) 1 order IV UD [facility] Medical - PN: A/P - Time Spent With Patient Total time spent is greater than 50% in coordination of care (as documented) at patient's floor/unit and/or counseling patient: 25 - 35 minutes (1) Non-healing ulcer of right foot Status: Acute Assessment and plan: * Necrotizing diabetic cellulitis right foot- Ongoing hyperbaric oxygen treatment/antibiotic coverage. Wound care on board. Gram-positive cocci on cultures. Await sensitivities. * Nonhealing diabetic right foot ulcer- Doppler arterial ultrasound unremarkable. MRI no evidence of osteomyelitis * Poorly controlled DM type II-improved control on higher doses of basal insulin. continue prandial insulin/Byetta. Diabetic diet. Blood sugars at Near goal * history of hypertension on lisinopril/thiazide * Hyperlipidemia on statin * Prophylaxis heparin PLAN * continue antibiotic coverage * hyperbaric oxygen treatment/wound care for Dr. Corey * continue diabetic management * Pre-existing medical condition management as above Current Visit: Yes
[2018-02-25] MEDS ORDERED: traZODone HCL 50 MG TABLET PO PRN (19:40)
[2018-02-25] MEDS: SIMVASTATIN 20 MG TABLET PO SCH (21:03)
[2018-02-25] MEDS: SENNOSIDES/DOCUSATE SODIUM 1 TAB TABLET PO SCH (21:03)
[2018-02-26] MEDS: 0.9 % SODIUM CHLORIDE 10 ML SYRINGE IV SCH ×5 (05:21→22:50)
[2018-02-26] MEDS: PIPERACILLIN SODIUM/TAZOBACTAM 3.375 GM in DEXTROSE 5% IN WATER 50 ML IV SCH ×3 (05:22→17:46)
[2018-02-26 06:29] LABS: Mean Cell Volume 85.3 fL (80.0-100.0); Mean Corpuscular HGB Conc 34.6 g/dL (31.0-36.0); Mean Corpuscular Hemoglobin 29.6 pg (26.0-34.0); Platelet Count 171 K/mcL (140-440); RBC 3.74 M/mcL (4.50-5.90); Red Cell Distribution Width 14.8 % (11.5-14.5)
[2018-02-26 06:48] LABS: ALT/SGPT 17 U/l (0-40); Albumin 3.3 gm/dL (3.2-5.2); Albumin/Globulin Ratio 1.2 (1.0-2.3); Alkaline Phosphatase 100 U/L (39-117); Bilirubin,Direct < 0.2 mg/dL (0.0-0.3); Blood Urea Nitrogen 17 mg/dl (6-20); Gamma Glutamyl Transpeptidase 59 U/L (8-61)
[2018-02-26 07:28] LABS: Band Neutrophils % 1 % (0-10); Lymphocytes % 28 % (15-49); Monocytes % (Manual) 4 % (1-12); Platelet Estimate NORMAL (NORMAL); RBC Morphology NORMAL (NORMAL); Segmented Neutrophils % 67 % (38-78)
--- NOTE | 2018-02-26 07:47 | XRay Report ---
HISTORY: Reason for Exam:PICC placement FINDINGS: A PICC line has been placed through the left arm. The tip is in the region of superior vena cava at the level of the azygos arch. No pneumothorax or pleural effusion are present. The lungs are clear but incompletely expanded. The heart size is normal. IMPRESSION: Well-positioned PICC line and no acute abnormality. Nursing was called with the results Interpreted and Authenticated by: Remington Meadows 02/26/18
[2018-02-26] MEDS: metFORMIN 500 MG TABLET PO SCH ×2 (08:35→17:45)
[2018-02-26] MEDS: EXENATIDE 10 MCG SC SCH ×2 (08:37→17:45)
[2018-02-26] MEDS: INSULIN LISPRO 1 UNIT/0.01 ML UNIT SQ SCH ×4 (08:37→21:23)
[2018-02-26] MEDS: DOCUSATE SODIUM 100 MG CAPSULE PO SCH ×2 (11:03→21:22)
[2018-02-26] MEDS: sitaGLIPtin 100 MG TABLET PO SCH (11:03)
[2018-02-26] MEDS: LISINOPRIL 10 MG TABLET PO SCH (11:03)
[2018-02-26] MEDS: HEPARIN 5,000 UNIT/ML VIAL SQ SCH ×2 (11:03→21:24)
[2018-02-26] MEDS: MULTIVIT,THER IRON,CA,FA & MIN 1 TABLET PO SCH (11:04)
[2018-02-26] MEDS: HYDROCHLOROTHIAZIDE 25 MG TABLET PO SCH (11:04)
[2018-02-26] MEDS: INSULIN GLARGINE, HUMAN 1 UNIT/0.01 ML SQ SCH ×2 (11:04→21:23)
[2018-02-26] MEDS: VANCOMYCIN 1,500 MG in 0.9 % SODIUM CHLORIDE 500 ML IV SCH ×2 (11:04→21:24)
[2018-02-26] MEDS: GENTAMICIN SULFATE 40 MG, CLINDAMYCIN 300 MG, BACITRACIN 25,000 UNIT in SODIUM CHLORIDE... IRR SCH ×2 (11:05→21:23)
--- NOTE | 2018-02-26 11:24 | General Surgery Progress Note ---
Subjective Patient reports: no new complaints Narrative: Note initiated : 02/26/18 at 11:18 am Service Date, if different from initiated Date: [] Patient: Bro Malave 52 y/o M admitted on 02/24/18 for Diabetic Foot Wound/Nonhealing Right Foot Ulcer. Chief Complaint: []Patient currently undergoing local wound care and IV antibiotics and HBOT. DOes not have any specific complaints. I saw him with STACEY Nelson and examined his wound. Left plantar DFU. Objective Temp Pulse Resp BP Pulse Ox 97.3 F 71 14 136/74 97 02/26/18 04:00 02/26/18 08:00 02/26/18 04:00 02/26/18 04:00 02/26/18 04:00 - Additional Data Intake & Output - Last 24 hours: Intake & Output 02/24/18 02/25/18 02/26/18 02/27/18 05:59 05:59 05:59 05:59 Intake Total 2655 / 2655 3490 / 3490 3155 / 3155 480 / 480 Output Total 1000 / 1000 600 / 600 1900 / 1900 Balance 1655 / 1655 2890 / 2890 1255 / 1255 480 / 480 Weight 300 lb 12.8 oz 298 lb 8 oz 300 lb 02/26/18 11:19 AVSS. NO changes in SILAS. Wound tissue cultures: Staph aureus and Strep angiosus. ?? Anaerobes Blood c/s NEG Labs Improving Hyperglycemia. Normal WBC Left Plantar DFU Cellulitis is RESOLVING and wound is smoking pipes cleaner now. NO ODOR and No erythema. Periwound skin and soft tissue texture is improving. Still has adherent eschar at base. Will dbride at bed side later. MRI and X Ray: Left foot and ankle is negative for Osteomyelitis. - Labs 02/26/18 05:20 02/26/18 05:20 Diabetes panel 02/26/18 Range/Units 05:20 Sodium 136 (133-145) mmol/L Potassium 3.4 (3.3-5.1) mmol/L Chloride 98 (96-108) mmol/L Carbon Dioxide 26 (22-30) mmol/L BUN 17 (6-20) mg/dl Creatinine 1.0 (0.7-1.2) mg/dl Glucose 124 H (70-105) mg/dL Calcium 8.9 (8.6-10.4) mg/dl AST 15 (0-37) U/l ALT 17 (0-40) U/l Alkaline Phosphatase 100 (39-117) U/L Total Protein 6.1 (5.9-8.4) gm/dL Albumin 3.3 (3.2-5.2) gm/dL Triglycerides 453 H (<150) mg/dl Calcium panel 02/26/18 Range/Units 05:20 Calcium 8.9 (8.6-10.4) mg/dl Phosphorus 4.5 (2.7-4.5) mg/dL Albumin 3.3 (3.2-5.2) gm/dL Pituitary panel 02/26/18 Range/Units 05:20 Sodium 136 (133-145) mmol/L Potassium 3.4 (3.3-5.1) mmol/L Chloride 98 (96-108) mmol/L Carbon Dioxide 26 (22-30) mmol/L BUN 17 (6-20) mg/dl Creatinine 1.0 (0.7-1.2) mg/dl Glucose 124 H (70-105) mg/dL Calcium 8.9 (8.6-10.4) mg/dl Adrenal panel 02/26/18 Range/Units 05:20 Sodium 136 (133-145) mmol/L Potassium 3.4 (3.3-5.1) mmol/L Chloride 98 (96-108) mmol/L Carbon Dioxide 26 (22-30) mmol/L BUN 17 (6-20) mg/dl Creatinine 1.0 (0.7-1.2) mg/dl Glucose 124 H (70-105) mg/dL Calcium 8.9 (8.6-10.4) mg/dl Total Bilirubin 0.5 (0.0-1.0) mg/dL AST 15 (0-37) U/l ALT 17 (0-40) U/l Alkaline Phosphatase 100 (39-117) U/L Total Protein 6.1 (5.9-8.4) gm/dL Albumin 3.3 (3.2-5.2) gm/dL Assessment and Plan (1) Sepsis, polymicrobial Status: Acute Current Visit: Yes (2) Sepsis affecting skin Problem details: Assessment: DFU Mixon 3 with CSSSI and uncontrolled diabetes and Necrotizing skin infection of RIGHT foot. Plan: Patient is status post INITIAL debridement in clinic and now admitted to [facility] Floor for ongoing continuity of wound care, IV antibiotics and HBOT Will be following this patient whilst he is in hospital, and for HBOT. Status: Acute Assessment and plan: Assessment: IMPROVING and responding to co-ordinated treatment. Will request [employer] Food Instructor to see patient about transfer to Swing Bed Status. For continuity of care. Plan: Continue current treatment. Consult Case management for Swing Bed Status assessment. Current Visit: Yes - Time Spent With Patient Total time spent is greater than 50% in coordination of care (as documented) at patient's floor/unit and/or counseling patient:
--- NOTE | 2018-02-26 13:26 | Internal Med Progress Note ---
Medical - PN: Subj Patient information: Note initiated : 02/26/18 at 1:26 pm Service Date, if different from initiated Date: [] Patient: Bro Malave a 52 y/o M admitted on 02/24/18 for Diabetic Foot Wound/Nonhealing Right Foot Ulcer. Chief Complaint: [] Interval history: Mr. Malave is a 52 year old M history of poorly controlled diabetes and chronic nonhealing right foot ulcer/prior amputation of right big toe. Patient has not been using his orthotic shoe and over the last few weeks has noted increasing purulence and discharge around the foot ulcer. He has been followed up with Dr. Corey wound care. During today's evaluation patient underwent debridement and [facility] light of poor outpatient response to treatment and persistent cellulitis. Initial workup in the ER was essentially unremarkable. Patient was started on vancomycin and Zosyn given history of MRSA. Cultures were sent from wound care clinic during debridement. Wound care physician Dr. Corey will be following during hospitalization.x-ray lower extremity/MRI" unremarkable for acute osteomyelitis/abscess however significant for cellulitis Hospitalist service was consulted for evaluation and admission At the time of evaluation patient is accompanied with her daughter and . He was able to answer most questions. Patient has had amputation in 1999 and subsequently [address] Cormier. He has been continually followed by wound care. On the last few days he has noticed increasing discharge/purulence along with increasing size of the ulcer. He denies associated fevers shaking chills or leg redness. He denies any other joint swelling and rash headache or photophobia. He denies recent trauma but has been continually bearing weight and not using his orthotics 02/24- putrid discharge plantar aspect. Case reviewed with wound care physician Dr. Corey. Patient will be started on hyperbaric oxygen treatment per Dr. Corey. Doppler lower extremity ultrasound pending. On broad antibiotic coverage. Place PICC line for IV antibiotics. Transfer to inpatient status due to failed outpatient treatment and worsening necrotizing cellulitis. Include gram-negative and anaerobic coverage. February 25- patient undergoing hyperbaric oxygen treatments. Wound management per wound care. On IV antibiotic.wound culture gram-positive cocci.stable labs/ hemodynamics. Afebrile. No overnight events.blood sugars improving with higher doses of Lantus.. Blood sugar down from 467-194. no family at the site. No concerns expressed by nursing staff February 26-ongoing hyperbaric treatment. Possible debridement 24 hours. Wound care ongoing. Improving granulation tissue. Discussed case with wound care physician. Continue antibiotic coverage.wound culture revealed Streptococcus/ staph aureus. Sensitivities pending. Blood cultures negative. blood sugars improved to 124 on higher dose of Lantus. - Constitutional Vitals: Vital Signs Temp Pulse Resp BP Pulse Ox 98.1 F 94 H 16 176/97 95 02/26/18 11:19 02/26/18 11:19 02/26/18 11:19 02/26/18 11:19 02/26/18 11:19 Period Temp Pulse Resp BP Sys/Cruz Pulse Ox Last 24 Hr 97.2 F-98.1 F 71-94 14-16 136-176/74-97 94-97 Intake and Output 02/25/18 02/26/18 02/26/18 21:59 05:59 13:59 Intake Total 1350 / 1350 675 / 675 480 / 480 Output Total 1900 / 1900 Balance -550 / -550 675 / 675 480 / 480 Weight 300 lb 300 lb Intake & Output: Intake & Output 02/25/18 02/26/18 02/26/18 21:59 05:59 13:59 Intake Total 1350 / 1350 675 / 675 480 / 480 Output Total 1900 / 1900 Balance -550 / -550 675 / 675 480 / 480 Weight 300 lb 300 lb Intake: IV 50 / 50 600 / 600 Zosyn 3.375 gm In Dextrose 5% 50 / 50 100 / 100 in Water 50 ml @ 100 mls/hr IV Q6H [facility] Rx#:[id number] Vancomycin 1,500 mg In Sodium 500 / 500 Chloride 0.9% 500 ml @ 333.3 mls/hr IV Q12H [facility] Rx#: [id number] Oral 1300 / 1300 75 / 75 480 / 480 Output: Void Amount 1900 / 1900 Other: Meal 5 vanilla wafers Breakfast Percent of Meal Consumed 100% Feeding Ability Independent Independent General appearance: no acute distress Exam: ambulating Alert oriented No anxiety Nonlabored breathing right foot covered and sterile dressing Medical - PN: Obj Da - Labs CBC & Chem 7: 02/27/18 04:54 02/27/18 04:54 Labs: Abnormal Lab Results 02/26/18 02/26/18 02/25/18 05:20 05:20 06:15 RBC 3.74 L Hgb 11.1 L Hct 31.9 L RDW 14.8 H Lymph # (Auto) RBC Morphology Polychromasia Chloride Glucose 124 H 194 H Magnesium 1.5 L GGT 64 H Alkaline Phosphatase Triglycerides 453 H 528 H 02/25/18 02/24/18 02/24/18 06:15 04:45 04:45 RBC 4.00 L 4.00 L Hgb 12.0 L 11.8 L Hct 34.5 L 34.3 L RDW 14.8 H 15.1 H Lymph # (Auto) RBC Morphology Abnorm A Abnorm A Polychromasia 1+ A 1+ A Chloride Glucose 288 H Magnesium 1.5 L GGT 69 H Alkaline Phosphatase 123 H Triglycerides 506 H 02/23/18 02/23/18 14:40 14:40 RBC Hgb Hct 40.7 L RDW 15.1 H Lymph # (Auto) 1.3 L RBC Morphology Polychromasia Chloride 91 L Glucose 467 H* Magnesium GGT Alkaline Phosphatase 159 H Triglycerides Meds: Medications Acetaminophen (Tylenol) 650 mg PO Q4-6HP PRN PRN Reason: PAIN/FEVER > 101 Dextrose (Dextrose 50%) 0 ml IV UD PRN PRN Reason: Hypoglycemia Diagnostic Test (Pha) (Accu-Chek) 1 each FS ACHS [facility] Last Admin: 02/26/18 11:21 Dose: 1 each Docusate Sodium (Colace) 100 mg PO BID [facility] Last Admin: 02/26/18 11:03 Dose: 100 mg Glucose (Insta-Glucose) 15 gm PO PRN PRN PRN Reason: Hypoglycemia Heparin Sodium (Porcine) (Heparin) 5,000 unit SQ Q12 [facility] Last Admin: 02/26/18 11:03 Dose: 5,000 unit Heparin Sodium (Porcine) (Heparin Flush) 2 ml IV Q12 [facility] Last Admin: 02/26/18 11:03 Dose: 2 ml Hydrochlorothiazide (Oretic) 25 mg PO DAILY [facility] Last Admin: 02/26/18 11:04 Dose: 25 mg Magnesium Sulfate (Magnesium Sulfate) 2 gm in 50 mls @ 50 mls/hr IV UD PRN PRN Reason: MG = or < 1.7 Last Infusion: 02/25/18 10:14 Dose: Infused Acetaminophen (Ofirmev) 1,000 mg in 100 mls @ 200 mls/hr IV Q6HP PRN PRN Reason: PAIN/FEVER > 101 Piperacillin Sod/Tazobactam (Sod 3.375 gm/ Dextrose) 50 mls @ 100 mls/hr IV Q6H [facility] Last Infusion: 02/26/18 05:52 Dose: Infused Vancomycin HCl 1,500 mg/ (Sodium Chloride) 500 mls @ 333.3 mls/hr IV Q12H [facility] Last Admin: 02/26/18 11:04 Dose: 333 mls/hr Gentamicin Sulfate 40 mg/Clindamycin Phosphate 300 mg/Bacitracin 25,000 unit/ Sodium Chloride 503 mls @ 0 mls/hr IRR Q12 [facility] PRN Reason: As Directed Last Admin: 02/26/18 11:05 Dose: 100 mls/hr Insulin Glargine (Lantus) 52 unit SQ BID [facility] Last Admin: 02/26/18 11:04 Dose: 52 unit Insulin Human Lispro (Humalog) 0 unit SQ ACHS [facility] PRN Reason: Protocol Last Admin: 02/26/18 11:21 Dose: Not Given Iron Carb/Multivit/Marker Maker/Folic Acid (Multivitamin W/Minerals) 1 tab PO DAILY [facility] Last Admin: 02/26/18 11:04 Dose: 1 tab Lisinopril (Zestril) 30 mg PO DAILY [facility] Last Admin: 02/26/18 11:03 Dose: 30 mg Magnesium Hydroxide (Milk Of Magnesia) 30 ml PO HSP PRN PRN Reason: Constipation Metformin HCl (Glucophage) 1,000 mg PO BIDCC [facility] Last Admin: 02/26/18 08:35 Dose: 1,000 mg Ondansetron HCl (Zofran) 4 mg IV Q4-6HP PRN PRN Reason: Nausea And Vomiting Exenatide [Byetta] (10 Mcg Inj) 1 dose SC BIDAC [facility] Last Admin: 02/26/18 08:37 Dose: 1 dose Potassium Chloride (Klor-Con) 40 meq PO DAILYP PRN PRN Reason: K+ < 3.5 Last Admin: 02/24/18 09:00 Dose: 40 meq Senna/Docusate Sodium (Senna Plus Tablet) 1 tab PO HS [facility] Last Admin: 02/25/18 21:03 Dose: 1 tab Simvastatin (Zocor) 20 mg PO HS [facility] Last Admin: 02/25/18 21:03 Dose: 20 mg Sitagliptin Phosphate (Januvia) 100 mg PO DAILY [facility] Last Admin: 02/26/18 11:03 Dose: 100 mg Sodium Chloride (Saline Flush) 10 ml IV Q8 [facility] Last Admin: 02/26/18 05:21 Dose: 10 ml Sodium Chloride (Saline Flush) 10 ml IV UD PRN PRN Reason: FLUSH Sodium Chloride (Saline Flush) 10 ml IV Q12 [facility] Last Admin: 02/26/18 11:04 Dose: 10 ml Trazodone HCl (Desyrel) 50 mg PO HSP PRN PRN Reason: Insomnia Last Admin: 02/25/18 23:29 Dose: 50 mg Vancomycin HCl (Vancomycin Per Pharmacy) 1 order IV UD [facility] Medical - PN: A/P - Time Spent With Patient Total time spent is greater than 50% in coordination of care (as documented) at patient's floor/unit and/or counseling patient: 25 - 35 minutes (1) Non-healing ulcer of right foot Status: Acute Assessment and plan: * Necrotizing diabetic cellulitis right foot- Ongoing hyperbaric oxygen treatment/antibiotic coverage. likely wound debridement in [address] Corey wound care physician. Staph aureus/streptococcus on cultures. de-escalate antibiotics once sensitivities available * Nonhealing diabetic right foot ulcer- Doppler arterial ultrasound unremarkable. MRI no evidence of osteomyelitis.continue management per Dr. Corey * Poorly controlled DM type II-improved control on higher doses of basal insulin. blood sugars around 190s. continue prandial insulin/Byetta. Diabetic diet. * history of hypertension on lisinopril/thiazide * Hyperlipidemia on statin * Prophylaxis heparin PLAN * continue antibiotic coverage and de-escalate based on culture * hyperbaric oxygen treatment/wound care for Dr. Corey * optimize blood sugar management * Pre-existing medical condition management as above Current Visit: Yes
--- NOTE | 2018-02-26 19:01 | General Surgery Progress Note ---
Subjective Narrative: Note initiated : 02/26/18 at 6:58 pm Service Date, if different from initiated Date: [] Patient: Bro Malave 52 y/o M admitted on 02/24/18 for Diabetic Foot Wound/Nonhealing Right Foot Ulcer. Chief Complaint: []I saw patient on morning rounds today and examined his wounds. Later saw him for HBOT at wound center. Objective Temp Pulse Resp BP Pulse Ox 98.1 F 91 H 16 170/90 95 02/26/18 16:00 02/26/18 16:00 02/26/18 16:00 02/26/18 16:00 02/26/18 16:00 AVSS. Diabetes improving. No changes SILAS. L/E: Left foot plantar DFU is improving. Cellulins has resolved. NO odor. Decreased drainage. Wound cultures reviewed. He still has adherent eschar at wound base. Will dbride this at bedside later. - Additional Data Intake & Output - Last 24 hours: Intake & Output 02/24/18 02/25/18 02/26/18 02/27/18 05:59 05:59 05:59 05:59 Intake Total 2655 / 2655 3490 / 3490 3155 / 3155 1390 / 1390 Output Total 1000 / 1000 600 / 600 1900 / 1900 Balance 1655 / 1655 2890 / 2890 1255 / 1255 1390 / 1390 Weight 300 lb 12.8 oz 298 lb 8 oz 300 lb - Labs 02/26/18 05:20 02/26/18 05:20 Diabetes panel 02/26/18 Range/Units 05:20 Sodium 136 (133-145) mmol/L Potassium 3.4 (3.3-5.1) mmol/L Chloride 98 (96-108) mmol/L Carbon Dioxide 26 (22-30) mmol/L BUN 17 (6-20) mg/dl Creatinine 1.0 (0.7-1.2) mg/dl Glucose 124 H (70-105) mg/dL Calcium 8.9 (8.6-10.4) mg/dl AST 15 (0-37) U/l ALT 17 (0-40) U/l Alkaline Phosphatase 100 (39-117) U/L Total Protein 6.1 (5.9-8.4) gm/dL Albumin 3.3 (3.2-5.2) gm/dL Triglycerides 453 H (<150) mg/dl Calcium panel 02/26/18 Range/Units 05:20 Calcium 8.9 (8.6-10.4) mg/dl Phosphorus 4.5 (2.7-4.5) mg/dL Albumin 3.3 (3.2-5.2) gm/dL Pituitary panel 02/26/18 Range/Units 05:20 Sodium 136 (133-145) mmol/L Potassium 3.4 (3.3-5.1) mmol/L Chloride 98 (96-108) mmol/L Carbon Dioxide 26 (22-30) mmol/L BUN 17 (6-20) mg/dl Creatinine 1.0 (0.7-1.2) mg/dl Glucose 124 H (70-105) mg/dL Calcium 8.9 (8.6-10.4) mg/dl Adrenal panel 02/26/18 Range/Units 05:20 Sodium 136 (133-145) mmol/L Potassium 3.4 (3.3-5.1) mmol/L Chloride 98 (96-108) mmol/L Carbon Dioxide 26 (22-30) mmol/L BUN 17 (6-20) mg/dl Creatinine 1.0 (0.7-1.2) mg/dl Glucose 124 H (70-105) mg/dL Calcium 8.9 (8.6-10.4) mg/dl Total Bilirubin 0.5 (0.0-1.0) mg/dL AST 15 (0-37) U/l ALT 17 (0-40) U/l Alkaline Phosphatase 100 (39-117) U/L Total Protein 6.1 (5.9-8.4) gm/dL Albumin 3.3 (3.2-5.2) gm/dL Assessment and Plan (1) Sepsis, polymicrobial Status: Acute Current Visit: Yes (2) Sepsis affecting skin Problem details: Assessment: DFU Mixon 3 with CSSSI and uncontrolled diabetes and Necrotizing skin infection of RIGHT foot. Plan: Patient is status post INITIAL debridement in clinic and now admitted to Med Surg Floor for ongoing continuity of wound care, IV antibiotics and HBOT Will be following this patient whilst he is in hospital, and for HBOT. Status: Acute Assessment and plan: Assessment: IMPROVING and responding to co-ordinated treatment. Will request History Faculty Member to see patient about transfer to Swing Bed Status. For continuity of care. Plan: Continue current treatment. Consult Case management for Swing Bed Status assessment. Current Visit: Yes - Narrative A/P Narrative: Assessments: Patient is progressing well. NEEDS continuing ongoing care at the hospital as in patient. Plan: Continue current treatment / management. Consult Case Management for Swing BED status evaluation for continuity if care.. - Time Spent With Patient Total time spent is greater than 50% in coordination of care (as documented) at patient's floor/unit and/or counseling patient: 25 - 35 minutes
[2018-02-26] MEDS: SENNOSIDES/DOCUSATE SODIUM 1 TAB TABLET PO SCH (21:22)
[2018-02-26] MEDS: SIMVASTATIN 20 MG TABLET PO SCH (21:22)
[2018-02-27] MEDS: PIPERACILLIN SODIUM/TAZOBACTAM 3.375 GM in DEXTROSE 5% IN WATER 50 ML IV SCH ×4 (00:02→17:25)
[2018-02-27] MEDS: 0.9 % SODIUM CHLORIDE 10 ML SYRINGE IV SCH ×5 (05:45→21:07)
[2018-02-27 06:14] LABS: Mean Cell Volume 86.3 fL (80.0-100.0); Mean Corpuscular HGB Conc 34.8 g/dL (31.0-36.0); Platelet Count 173 K/mcL (140-440); RBC 3.74 M/mcL (4.50-5.90); Red Cell Distribution Width 15.1 % (11.5-14.5)
[2018-02-27 06:41] LABS: ALT/SGPT 17 U/l (0-40); Albumin 3.2 gm/dL (3.2-5.2); Albumin/Globulin Ratio 1.1 (1.0-2.3); Alkaline Phosphatase 100 U/L (39-117); Bilirubin,Direct < 0.2 mg/dL (0.0-0.3); Blood Urea Nitrogen 30 mg/dl (6-20); Gamma Glutamyl Transpeptidase 61 U/L (8-61); Uric Acid 6.7 mg/dL (2.5-8.0)
[2018-02-27 07:06] LABS: Lymphocytes % 22 % (15-49); Monocytes % (Manual) 9 % (1-12); Platelet Estimate NORMAL (NORMAL); RBC Morphology NORMAL (NORMAL); Segmented Neutrophils % 69 % (38-78)
[2018-02-27] MEDS: INSULIN LISPRO 1 UNIT/0.01 ML UNIT SQ SCH ×4 (07:32→21:06)
[2018-02-27] MEDS: metFORMIN 500 MG TABLET PO SCH ×2 (07:33→17:06)
[2018-02-27] MEDS: EXENATIDE 10 MCG SC SCH ×2 (07:34→17:02)
[2018-02-27] MEDS: sitaGLIPtin 100 MG TABLET PO SCH (08:07)
[2018-02-27] MEDS: MULTIVIT,THER IRON,CA,FA & MIN 1 TABLET PO SCH (08:07)
[2018-02-27] MEDS: DOCUSATE SODIUM 100 MG CAPSULE PO SCH ×2 (08:07→21:06)
[2018-02-27] MEDS: LISINOPRIL 10 MG TABLET PO SCH (08:07)
[2018-02-27] MEDS: HYDROCHLOROTHIAZIDE 25 MG TABLET PO SCH (08:07)
[2018-02-27] MEDS: HEPARIN 5,000 UNIT/ML VIAL SQ SCH ×2 (08:08→21:05)
[2018-02-27] MEDS: VANCOMYCIN 1,500 MG in 0.9 % SODIUM CHLORIDE 500 ML IV SCH ×2 (09:14→20:59)
[2018-02-27] MEDS: INSULIN GLARGINE, HUMAN 1 UNIT/0.01 ML SQ SCH ×2 (09:14→21:06)
--- NOTE | 2018-02-27 09:38 | Internal Med Progress Note ---
Medical - PN: Subj Patient information: Note initiated : 02/27/18 at 9:35 am Service Date, if different from initiated Date: [] Patient: Bro Malave a 52 y/o M admitted on 02/24/18 for Diabetic Foot Wound/Nonhealing Right Foot Ulcer. Chief Complaint: [] Interval history: Mr. Malave is a 52 year old M history of poorly controlled diabetes and chronic nonhealing right foot ulcer/prior amputation of right big toe. Patient has not been using his orthotic shoe and over the last few weeks has noted increasing purulence and discharge around the foot ulcer. He has been followed up with Dr. Corey wound care. During today's evaluation patient underwent debridement and [facility] light of poor outpatient response to treatment and persistent cellulitis. Initial workup in the ER was essentially unremarkable. Patient was started on vancomycin and Zosyn given history of MRSA. Cultures were sent from wound care clinic during debridement. Wound care physician Dr. Corey will be following during hospitalization.x-ray lower extremity/MRI" unremarkable for acute osteomyelitis/abscess however significant for cellulitis Hospitalist service was consulted for evaluation and admission At the time of evaluation patient is accompanied with her daughter and . He was able to answer most questions. Patient has had amputation in 1999 and subsequently [address] Cormier. He has been continually followed by wound care. On the last few days he has noticed increasing discharge/purulence along with increasing size of the ulcer. He denies associated fevers shaking chills or leg redness. He denies any other joint swelling and rash headache or photophobia. He denies recent trauma but has been continually bearing weight and not using his orthotics 02/24- putrid discharge plantar aspect. Case reviewed with wound care physician Dr. Corey. Patient will be started on hyperbaric oxygen treatment per Dr. Corey. Doppler lower extremity ultrasound pending. On broad antibiotic coverage. Place PICC line for IV antibiotics. Transfer to inpatient status due to failed outpatient treatment and worsening necrotizing cellulitis. Include gram-negative and anaerobic coverage. February 25- patient undergoing hyperbaric oxygen treatments. Wound management per wound care. On IV antibiotic.wound culture gram-positive cocci.stable labs/ hemodynamics. Afebrile. No overnight events.blood sugars improving with higher doses of Lantus.. Blood sugar down from 467-194. no family at the site. No concerns expressed by nursing staff February 26-ongoing hyperbaric treatment. Possible debridement 24 hours. Wound care ongoing. Improving granulation tissue. Discussed case with wound care physician. Continue antibiotic coverage.wound culture revealed Streptococcus/ staph aureus. Sensitivities pending. Blood cultures negative. blood sugars improved to 124 on higher dose of Lantus. February 27- ongoing hyperbaric oxygen treatment. Wound debridement today by Dr. costa. Blood sugars at 124. Afebrile. No complaints of pain shortness of breath headache. No concerns expressed nursing staff. On diabetic diet. Patient will likely [facility] bed status in 24 hours for continued antibiotic coverage. Sensitivities pending on initial wound culture. - Constitutional Vitals: Vital Signs Temp Pulse Resp BP Pulse Ox 97.7 F 80 16 148/86 95 02/27/18 07:39 02/27/18 03:41 02/27/18 07:39 02/27/18 07:39 02/27/18 07:39 Period Temp Pulse Resp BP Sys/Cruz Pulse Ox Last 24 Hr 97.0 F-98.1 F 80-95 16-18 142-176/66-97 94-96 Intake and Output 02/26/18 02/27/18 02/27/18 21:59 05:59 13:59 Intake Total 1210 / 1210 1200 / 1200 530 / 530 Output Total 1000 / 1000 800 / 800 900 / 900 Balance 210 / 210 400 / 400 -370 / -370 Weight 304 lb 8 oz Intake & Output: Intake & Output 02/26/18 02/27/18 02/27/18 21:59 05:59 13:59 Intake Total 1210 / 1210 1200 / 1200 530 / 530 Output Total 1000 / 1000 800 / 800 900 / 900 Balance 210 / 210 400 / 400 -370 / -370 Weight 304 lb 8 oz Intake: IV 50 / 50 550 / 550 50 / 50 Zosyn 3.375 gm In Dextrose 5% 50 / 50 50 / 50 50 / 50 in Water 50 ml @ 100 mls/hr IV Q6H [facility] Rx#:[id number] Vancomycin 1,500 mg In Sodium 500 / 500 Chloride 0.9% 500 ml @ 333.3 mls/hr IV Q12H [facility] Rx#: [id number] Oral 1160 / 1160 650 / 650 480 / 480 Output: Void Amount 1000 / 1000 800 / 800 900 / 900 Other: Meal Lunch Breakfast Percent of Meal Consumed 100% 100% Feeding Ability Independent Independent # Voids 1 General appearance: cooperative, no acute distress Exam: alert and oriented nonlabored breathing Nondistended abdomen No anxiety Ambulating Medical - PN: Obj Da - Labs CBC & Chem 7: 02/27/18 04:54 02/27/18 04:54 Labs: Abnormal Lab Results 02/27/18 02/27/18 02/26/18 04:54 04:54 05:20 RBC 3.74 L Hgb 11.2 L Hct 32.3 L RDW 15.1 H Nucleated RBCs 1 H RBC Morphology Polychromasia BUN 30 H Creatinine 1.6 H Glucose 116 H 124 H Phosphorus 4.6 H Magnesium GGT Triglycerides 532 H 453 H 02/26/18 02/25/18 02/25/18 05:20 06:15 06:15 RBC 3.74 L 4.00 L Hgb 11.1 L 12.0 L Hct 31.9 L 34.5 L RDW 14.8 H 14.8 H Nucleated RBCs RBC Morphology Abnorm A Polychromasia 1+ A BUN Creatinine Glucose 194 H Phosphorus Magnesium 1.5 L GGT 64 H Triglycerides 528 H Meds: Medications Acetaminophen (Tylenol) 650 mg PO Q4-6HP PRN PRN Reason: PAIN/FEVER > 101 Dextrose (Dextrose 50%) 0 ml IV UD PRN PRN Reason: Hypoglycemia Diagnostic Test (Pha) (Accu-Chek) 1 each FS ACHS [facility] Last Admin: 02/27/18 07:33 Dose: 1 each Docusate Sodium (Colace) 100 mg PO BID [facility] Last Admin: 02/27/18 08:07 Dose: 100 mg Glucose (Insta-Glucose) 15 gm PO PRN PRN PRN Reason: Hypoglycemia Heparin Sodium (Porcine) (Heparin) 5,000 unit SQ Q12 [facility] Last Admin: 02/27/18 08:08 Dose: 5,000 unit Heparin Sodium (Porcine) (Heparin Flush) 2 ml IV Q12 [facility] Last Admin: 02/27/18 09:15 Dose: 2 ml Hydrochlorothiazide (Oretic) 25 mg PO DAILY [facility] Last Admin: 02/27/18 08:07 Dose: 25 mg Magnesium Sulfate (Magnesium Sulfate) 2 gm in 50 mls @ 50 mls/hr IV UD PRN PRN Reason: MG = or < 1.7 Last Infusion: 02/25/18 10:14 Dose: Infused Acetaminophen (Ofirmev) 1,000 mg in 100 mls @ 200 mls/hr IV Q6HP PRN PRN Reason: PAIN/FEVER > 101 Piperacillin Sod/Tazobactam (Sod 3.375 gm/ Dextrose) 50 mls @ 100 mls/hr IV Q6H [facility] Last Infusion: 02/27/18 06:15 Dose: Infused Vancomycin HCl 1,500 mg/ (Sodium Chloride) 500 mls @ 333.3 mls/hr IV Q12H [facility] Last Admin: 02/27/18 09:14 Dose: 333 mls/hr Gentamicin Sulfate 40 mg/Clindamycin Phosphate 300 mg/Bacitracin 25,000 unit/ Sodium Chloride 503 mls @ 0 mls/hr IRR Q12 [facility] PRN Reason: As Directed Last Admin: 02/26/18 21:23 Dose: 1 mls/hr Insulin Glargine (Lantus) 52 unit SQ BID [facility] Last Admin: 02/27/18 09:14 Dose: 52 unit Insulin Human Lispro (Humalog) 0 unit SQ ACHS [facility] PRN Reason: Protocol Last Admin: 02/27/18 07:32 Dose: 2 unit Iron Carb/Multivit/Cooper/Folic Acid (Multivitamin W/Minerals) 1 tab PO DAILY [facility] Last Admin: 02/27/18 08:07 Dose: 1 tab Lisinopril (Zestril) 30 mg PO DAILY [facility] Last Admin: 02/27/18 08:07 Dose: 30 mg Magnesium Hydroxide (Milk Of Magnesia) 30 ml PO HSP PRN PRN Reason: Constipation Metformin HCl (Glucophage) 1,000 mg PO BIDCC [facility] Last Admin: 02/27/18 07:33 Dose: 1,000 mg Ondansetron HCl (Zofran) 4 mg IV Q4-6HP PRN PRN Reason: Nausea And Vomiting Exenatide [Byetta] (10 Mcg Inj) 1 dose SC BIDAC [facility] Last Admin: 02/27/18 07:34 Dose: 1 dose Potassium Chloride (Klor-Con) 40 meq PO DAILYP PRN PRN Reason: K+ < 3.5 Last Admin: 02/24/18 09:00 Dose: 40 meq Senna/Docusate Sodium (Senna Plus Tablet) 1 tab PO HS [facility] Last Admin: 02/26/18 21:22 Dose: 1 tab Simvastatin (Zocor) 20 mg PO HS [facility] Last Admin: 02/26/18 21:22 Dose: 20 mg Sitagliptin Phosphate (Januvia) 100 mg PO DAILY [facility] Last Admin: 02/27/18 08:07 Dose: 100 mg Sodium Chloride (Saline Flush) 10 ml IV Q8 [facility] Last Admin: 02/27/18 05:45 Dose: 10 ml Sodium Chloride (Saline Flush) 10 ml IV UD PRN PRN Reason: FLUSH Sodium Chloride (Saline Flush) 10 ml IV Q12 [facility] Last Admin: 02/27/18 09:15 Dose: 10 ml Trazodone HCl (Desyrel) 50 mg PO HSP PRN PRN Reason: Insomnia Last Admin: 02/25/18 23:29 Dose: 50 mg Vancomycin HCl (Vancomycin Per Pharmacy) 1 order IV UD [facility] Medical - PN: A/P - Time Spent With Patient Total time spent is greater than 50% in coordination of care (as documented) at patient's floor/unit and/or counseling patient: 15 - 24 minutes (1) Non-healing ulcer of right foot Status: Acute Assessment and plan: * Necrotizing diabetic cellulitis right foot- HBO treatment/antibiotic coverage. wound debridement today by Dr. Corey physician. Staph aureus/ streptococcus on cultures,sensitivities pending * Nonhealing diabetic right foot ulcer- arterial Doppler/MRI negative. no osteomyelitis * Poorly controlled DM type II-blood sugars 120. continue prandial insulin/ Byetta. Diabetic diet. * history of hypertension on lisinopril/thiazide * Hyperlipidemia continue statin * Prophylaxis heparin PLAN * de-escalate based on sensitivities * HBOT/wound debridement per Dr. Corey * Pre-existing medical condition management as above * likely swing bed transfer in 24 hours Current Visit: Yes
[2018-02-27] MEDS: GENTAMICIN SULFATE 40 MG, CLINDAMYCIN 300 MG, BACITRACIN 25,000 UNIT in SODIUM CHLORIDE... IRR SCH ×2 (12:09→21:07)
--- NOTE | 2018-02-27 16:47 | General Surgery Progress Note ---
Subjective Patient reports: no new complaints Narrative: Note initiated : 02/27/18 at 4:41 pm Service Date, if different from initiated Date: [] Patient: Bro Malave 52 y/o M admitted on 02/24/18 for Diabetic Foot Wound/Nonhealing Right Foot Ulcer. Chief Complaint: [] Patient seen earlier this morning and again later this afternoon, Case discussed with Bibi IBARRA CM. Objective Temp Pulse Resp BP Pulse Ox 97.4 F 80 16 152/82 97 02/27/18 16:00 02/27/18 03:41 02/27/18 16:00 02/27/18 16:00 02/27/18 16:00 - Additional Data Intake & Output - Last 24 hours: Intake & Output 02/25/18 02/26/18 02/27/18 02/28/18 05:59 05:59 05:59 05:59 Intake Total 3490 / 3490 3155 / 3155 3440 / 3440 1880 / 1880 Output Total 600 / 600 1900 / 1900 1800 / 1800 900 / 900 Balance 2890 / 2890 1255 / 1255 1640 / 1640 980 / 980 Weight 298 lb 8 oz 300 lb 304 lb 8 oz 02/27/18 16:43 AVSS. No changes in SILAS. Tolerating HBOT and IV antibiotics uneventfully. Tissue Pathology Extensive necrosis. Wound culture results reviewed. Polymicrobial mixed infection. O/E: Necrotic tissue at wound base. Left plantar DFU mid foot. PROCEEDED TO CLEAN THIS WOUND AND EXCISED DEMARCATED NECROTIC TISSUE WITH GASKET FORMER AND #[id number] SCALPEL BLADE AT BED SIDE. Later wound was cleaned addressed with GCP solution. - Labs 02/27/18 04:54 02/27/18 04:54 Diabetes panel 02/27/18 Range/Units 04:54 Sodium 138 (133-145) mmol/L Potassium 3.7 (3.3-5.1) mmol/L Chloride 100 (96-108) mmol/L Carbon Dioxide 25 (22-30) mmol/L BUN 30 H (6-20) mg/dl Creatinine 1.6 H (0.7-1.2) mg/dl Glucose 116 H (70-105) mg/dL Calcium 9.2 (8.6-10.4) mg/dl AST 15 (0-37) U/l ALT 17 (0-40) U/l Alkaline Phosphatase 100 (39-117) U/L Total Protein 6.2 (5.9-8.4) gm/dL Albumin 3.2 (3.2-5.2) gm/dL Triglycerides 532 H (<150) mg/dl Calcium panel 02/27/18 Range/Units 04:54 Calcium 9.2 (8.6-10.4) mg/dl Phosphorus 4.6 H (2.7-4.5) mg/dL Albumin 3.2 (3.2-5.2) gm/dL Pituitary panel 02/27/18 Range/Units 04:54 Sodium 138 (133-145) mmol/L Potassium 3.7 (3.3-5.1) mmol/L Chloride 100 (96-108) mmol/L Carbon Dioxide 25 (22-30) mmol/L BUN 30 H (6-20) mg/dl Creatinine 1.6 H (0.7-1.2) mg/dl Glucose 116 H (70-105) mg/dL Calcium 9.2 (8.6-10.4) mg/dl Adrenal panel 02/27/18 Range/Units 04:54 Sodium 138 (133-145) mmol/L Potassium 3.7 (3.3-5.1) mmol/L Chloride 100 (96-108) mmol/L Carbon Dioxide 25 (22-30) mmol/L BUN 30 H (6-20) mg/dl Creatinine 1.6 H (0.7-1.2) mg/dl Glucose 116 H (70-105) mg/dL Calcium 9.2 (8.6-10.4) mg/dl Total Bilirubin 0.5 (0.0-1.0) mg/dL AST 15 (0-37) U/l ALT 17 (0-40) U/l Alkaline Phosphatase 100 (39-117) U/L Total Protein 6.2 (5.9-8.4) gm/dL Albumin 3.2 (3.2-5.2) gm/dL Assessment and Plan (1) Sepsis, polymicrobial Status: Acute Current Visit: Yes (2) Sepsis affecting skin Problem details: Assessment: DFU Mixon 3 with CSSSI and uncontrolled diabetes and Necrotizing skin infection of RIGHT foot. Plan: Patient is status post INITIAL debridement in clinic and now admitted to Med Surg Floor for ongoing continuity of wound care, IV antibiotics and HBOT Will be following this patient whilst he is in hospital, and for HBOT. Status: Acute Assessment and plan: Assessment: IMPROVING and responding to co-ordinated treatment. Will request Sap Specialist to see patient about transfer to Swing Bed Status. For continuity of care. Plan: Continue current treatment. Consult Case management for Swing Bed Status assessment. Current Visit: Yes - Time Spent With Patient Total time spent is greater than 50% in coordination of care (as documented) at patient's floor/unit and/or counseling patient: Assessment: Satisfactory progress. Patient NEEDS ongoing local wound care, IV antibiotics and HBOT Plan: Request CM for SWING BED admission to continue ongoing treatment. Anticipate patient will need further debridement in next 2/3 days followed by wound VAC. Patient likely to be ready for discharge by mid week next week without patient continuation of treatment and HBOT. Physical Therapy Consult for NWB, LEFT foot and leg ambulation. Following patient along with Hospitalist Physician. 25 - 35 minutes
[2018-02-27] MEDS: SENNOSIDES/DOCUSATE SODIUM 1 TAB TABLET PO SCH (21:06)
[2018-02-27] MEDS: SIMVASTATIN 20 MG TABLET PO SCH (21:06)
[2018-02-28] MEDS: PIPERACILLIN SODIUM/TAZOBACTAM 3.375 GM in DEXTROSE 5% IN WATER 50 ML IV SCH ×5 (00:05→23:57)
[2018-02-28 06:04] LABS: Mean Cell Volume 85.3 fL (80.0-100.0); Mean Corpuscular HGB Conc 34.7 g/dL (31.0-36.0); Mean Corpuscular Hemoglobin 29.6 pg (26.0-34.0); Platelet Count 161 K/mcL (140-440); RBC 3.73 M/mcL (4.50-5.90); Red Cell Distribution Width 15.1 % (11.5-14.5)
[2018-02-28] MEDS: 0.9 % SODIUM CHLORIDE 10 ML SYRINGE IV SCH ×7 (06:07→21:18)
[2018-02-28 06:37] LABS: ALT/SGPT 15 U/l (0-40); Albumin 3.3 gm/dL (3.2-5.2); Albumin/Globulin Ratio 1.1 (1.0-2.3); Alkaline Phosphatase 95 U/L (39-117); Bilirubin,Direct < 0.2 mg/dL (0.0-0.3); Blood Urea Nitrogen 33 mg/dl (6-20); Gamma Glutamyl Transpeptidase 63 U/L (8-61); Uric Acid 7.4 mg/dL (2.5-8.0)
[2018-02-28 06:51] LABS: Eosinophils % (Manual) 3 % (0-7); Lymphocytes % 19 % (15-49); Monocytes % (Manual) 5 % (1-12); Platelet Estimate NORMAL (NORMAL); RBC Morphology NORMAL (NORMAL); Segmented Neutrophils % 73 % (38-78)
[2018-02-28] MEDS ORDERED: 0.9 % SODIUM CHLORIDE 1,000 ML IV SCH (07:45)
[2018-02-28] MEDS: INSULIN LISPRO 1 UNIT/0.01 ML UNIT SQ SCH ×4 (08:21→21:04)
[2018-02-28] MEDS: EXENATIDE 10 MCG SC SCH ×2 (10:06→17:09)
[2018-02-28] MEDS: MULTIVIT,THER IRON,CA,FA & MIN 1 TABLET PO SCH (10:07)
[2018-02-28] MEDS: GENTAMICIN SULFATE 40 MG, CLINDAMYCIN 300 MG, BACITRACIN 25,000 UNIT in SODIUM CHLORIDE... IRR SCH ×2 (10:07→21:03)
[2018-02-28] MEDS: sitaGLIPtin 100 MG TABLET PO SCH (10:07)
[2018-02-28] MEDS: HEPARIN 5,000 UNIT/ML VIAL SQ SCH ×2 (10:07→21:04)
[2018-02-28] MEDS: DOCUSATE SODIUM 100 MG CAPSULE PO SCH ×2 (10:07→21:04)
[2018-02-28] MEDS: 0.9 % SODIUM CHLORIDE 10 ML SYRINGE IV PRN (10:08)
[2018-02-28] MEDS: INSULIN GLARGINE, HUMAN 1 UNIT/0.01 ML SQ SCH ×2 (10:08→21:04)
[2018-02-28] MEDS: VANCOMYCIN 1,500 MG in 0.9 % SODIUM CHLORIDE 500 ML IV SCH (11:09)
--- NOTE | 2018-02-28 12:45 | Internal Med Progress Note ---
Medical - PN: Subj Patient information: Note initiated : 02/28/18 at 12:43 pm Service Date, if different from initiated Date: [] Patient: Bro Malave a 52 y/o M admitted on 02/24/18 for Diabetic Foot Wound/Nonhealing Right Foot Ulcer. Chief Complaint: [] Interval history: Mr. Malave is a 52 year old M history of poorly controlled diabetes and chronic nonhealing right foot ulcer/prior amputation of right big toe. Patient has not been using his orthotic shoe and over the last few weeks has noted increasing purulence and discharge around the foot ulcer. He has been followed up with Dr. Corey wound care. During today's evaluation patient underwent debridement and [facility] light of poor outpatient response to treatment and persistent cellulitis. Initial workup in the ER was essentially unremarkable. Patient was started on vancomycin and Zosyn given history of MRSA. Cultures were sent from wound care clinic during debridement. Wound care physician Dr. Corey will be following during hospitalization.x-ray lower extremity/MRI" unremarkable for acute osteomyelitis/abscess however significant for cellulitis Hospitalist service was consulted for evaluation and admission At the time of evaluation patient is accompanied with her daughter and . He was able to answer most questions. Patient has had amputation in 1999 and subsequently [address] Cormier. He has been continually followed by wound care. On the last few days he has noticed increasing discharge/purulence along with increasing size of the ulcer. He denies associated fevers shaking chills or leg redness. He denies any other joint swelling and rash headache or photophobia. He denies recent trauma but has been continually bearing weight and not using his orthotics 02/24- putrid discharge plantar aspect. Case reviewed with wound care physician Dr. Corey. Patient will be started on hyperbaric oxygen treatment per Dr. Corey. Doppler lower extremity ultrasound pending. On broad antibiotic coverage. Place PICC line for IV antibiotics. Transfer to inpatient status due to failed outpatient treatment and worsening necrotizing cellulitis. Include gram-negative and anaerobic coverage. February 25- patient undergoing hyperbaric oxygen treatments. Wound management per wound care. On IV antibiotic.wound culture gram-positive cocci.stable labs/ hemodynamics. Afebrile. No overnight events.blood sugars improving with higher doses of Lantus.. Blood sugar down from 467-194. no family at the site. No concerns expressed by nursing staff February 26-ongoing hyperbaric treatment. Possible debridement 24 hours. Wound care ongoing. Improving granulation tissue. Discussed case with wound care physician. Continue antibiotic coverage.wound culture revealed Streptococcus/ staph aureus. Sensitivities pending. Blood cultures negative. blood sugars improved to 124 on higher dose of Lantus. February 27- ongoing hyperbaric oxygen treatment. Wound debridement today by Dr. costa. Blood sugars at 124. Afebrile. No complaints of pain shortness of breath headache. No concerns expressed nursing staff. On diabetic diet. Patient will likely transfer to swing bed status in 24 hours for continued antibiotic coverage. Sensitivities pending on initial wound culture. 02/28-patient seen and examined no acute overnight events. Patient has no complaints. One managed by Dr. Corey. Patient's glucose values are reasonably controlled. The patient's creatinine is trending up. Hold lisinopril or hydrochlorothiazide today. Get a urine analysis give 1 L of fluid and monitor renal function. Patient not ready for swing bed status yet given worsening renal function. Wound culture shows staph and strep this is MSSA staph. I will discontinue vancomycin, vancomycin level was supratherapeutic for which she may have contributed to renal dysfunction. Patient will continue on Zosyn for now Pertinent ROS: Denies headache, dizziness Denies chest pain, palpitations Denies cough or shortness of breath Denies abdominal pain, nausea or vomiting. - Constitutional Vitals: Vital Signs Temp Pulse Resp BP Pulse Ox 98.5 F 81 16 142/87 95 02/28/18 10:52 02/28/18 04:00 02/28/18 10:52 02/28/18 10:52 02/28/18 10:52 Period Temp Pulse Resp BP Sys/Cruz Pulse Ox Last 24 Hr 97.4 F-98.5 F 80-90 -18 142-166/79-88 92-97 Intake and Output 02/27/18 02/28/18 02/28/18 21:59 05:59 13:59 Intake Total 650 / 650 1100 / 1100 50 / 50 Output Total 900 / 900 650 / 650 950 / 950 Balance -250 / -250 450 / 450 -900 / -900 Weight 305 lb Intake & Output: Intake & Output 02/27/18 02/28/18 02/28/18 21:59 05:59 13:59 Intake Total 650 / 650 1100 / 1100 50 / 50 Output Total 900 / 900 650 / 650 950 / 950 Balance -250 / -250 450 / 450 -900 / -900 Weight 305 lb Intake: IV 50 / 50 550 / 550 50 / 50 Zosyn 3.375 gm In Dextrose 5% 50 / 50 50 / 50 50 / 50 in Water 50 ml @ 100 mls/hr IV Q6H HELEN Rx#:[id number] Vancomycin 1,500 mg In Sodium 500 / 500 Chloride 0.9% 500 ml @ 333.3 mls/hr IV Q12H HELEN Rx#: [id number] Oral 600 / 600 550 / 550 Output: Urine Catheter Amount 950 / 950 Void Amount 900 / 900 650 / 650 Other: Meal Dinner Percent of Meal Consumed 100% Feeding Ability Independent Stool Size Moderate # Voids 2 1 Exam: Constitutional; Afebrile, cooperative, alert, not in distress. Eyes- No icterus, , No periorbital swelling Ears- Ext ear normal, hearing normal to conversation. Neck- Midline trachea, supple Respiratory system: Air Entry equal on both sides, No crackles or wheezing, no rhonchi. CVS- Rate rhythm regular, S1,S2 heard, no gallop, no rub. Abdomen- Soft nontender abdomen, no organomegaly, no tenderness, no guarding or rigidity, [employer]- AOOx3, moving all extremities, no gross focal deficit noted. Medical - PN: Obj Da - Labs CBC & Chem 7: 02/28/18 05:10 02/28/18 05:10 Labs: Abnormal Lab Results 02/28/18 02/28/18 02/28/18 08:17 05:10 05:10 RBC 3.73 L Hgb 11.0 L Hct 31.8 L RDW 15.1 H Nucleated RBCs BUN 33 H Creatinine 2.0 H Glucose Phosphorus 4.7 H GGT 63 H Triglycerides 378 H Vancomycin Trough 26.4 H* 02/27/18 02/27/18 02/26/18 04:54 04:54 05:20 RBC 3.74 L Hgb 11.2 L Hct 32.3 L RDW 15.1 H Nucleated RBCs 1 H BUN 30 H Creatinine 1.6 H Glucose 116 H 124 H Phosphorus 4.6 H GGT Triglycerides 532 H 453 H Vancomycin Trough 04/12/18 05:20 RBC 3.74 L Hgb 11.1 L Hct 31.9 L RDW 14.8 H Nucleated RBCs BUN Creatinine Glucose Phosphorus GGT Triglycerides Vancomycin Trough Meds: Medications Acetaminophen (Tylenol) 650 mg PO Q4-6HP PRN PRN Reason: PAIN/FEVER > 101 Dextrose (Dextrose 50%) 0 ml IV UD PRN PRN Reason: Hypoglycemia Diagnostic Test (Pha) (Accu-Chek) 1 each FS ACHS [facility] Last Admin: 02/28/18 12:08 Dose: 1 each Docusate Sodium (Colace) 100 mg PO BID [facility] Last Admin: 02/28/18 10:07 Dose: 100 mg Glucose (Insta-Glucose) 15 gm PO PRN PRN PRN Reason: Hypoglycemia Heparin Sodium (Porcine) (Heparin) 5,000 unit SQ Q12 [facility] Last Admin: 02/28/18 10:07 Dose: 5,000 unit Heparin Sodium (Porcine) (Heparin Flush) 2 ml IV Q12 [facility] Last Admin: 02/28/18 10:07 Dose: 2 ml Magnesium Sulfate (Magnesium Sulfate) 2 gm in 50 mls @ 50 mls/hr IV UD PRN PRN Reason: MG = or < 1.7 Last Infusion: 02/25/18 10:14 Dose: Infused Acetaminophen (Ofirmev) 1,000 mg in 100 mls @ 200 mls/hr IV Q6HP PRN PRN Reason: PAIN/FEVER > 101 Piperacillin Sod/Tazobactam (Sod 3.375 gm/ Dextrose) 50 mls @ 100 mls/hr IV Q6H [facility] Last Admin: 02/28/18 12:35 Dose: 100 mls/hr Gentamicin Sulfate 40 mg/Clindamycin Phosphate 300 mg/Bacitracin 25,000 unit/ Sodium Chloride 503 mls @ 0 mls/hr IRR Q12 [facility]LEEN PRN Reason: As Directed Last Admin: 02/28/18 10:07 Dose: 100 mls/hr Sodium Chloride (Sodium Chloride 0.9%) 1,000 mls @ 125 mls/hr IV .Q8H [facility] Stop: 02/28/18 15:44 Last Admin: 02/28/18 10:08 Dose: 125 mls/hr Insulin Glargine (Lantus) 52 unit SQ BID [facility] Last Admin: 02/28/18 10:08 Dose: 52 unit Insulin Human Lispro (Humalog) 0 unit SQ ACHS [facility]EN PRN Reason: Protocol Last Admin: 02/28/18 12:35 Dose: 6 unit Iron Carb/Multivit/[place]/Folic Acid (Multivitamin W/Minerals) 1 tab PO DAILY [facility] Last Admin: 02/28/18 10:07 Dose: 1 tab Magnesium Hydroxide (Milk Of Magnesia) 30 ml PO HSP PRN PRN Reason: Constipation Ondansetron HCl (Zofran) 4 mg IV Q4-6HP PRN PRN Reason: Nausea And Vomiting Exenatide [Byetta] (10 Mcg Inj) 1 dose SC BIDAC [facility] Last Admin: 02/28/18 10:06 Dose: 1 dose Potassium Chloride (Klor-Con) 40 meq PO DAILYP PRN PRN Reason: K+ < 3.5 Last Admin: 02/24/18 09:00 Dose: 40 meq Senna/Docusate Sodium (Senna Plus Tablet) 1 tab PO HS [facility] Last Admin: 02/27/18 21:06 Dose: 1 tab Simvastatin (Zocor) 20 mg PO HS [facility] Last Admin: 02/27/18 21:06 Dose: 20 mg Sitagliptin Phosphate (Januvia) 100 mg PO DAILY [facility] Last Admin: 02/28/18 10:07 Dose: 100 mg Sodium Chloride (Saline Flush) 10 ml IV Q8 [facility] Last Admin: 02/28/18 10:07 Dose: 10 ml Sodium Chloride (Saline Flush) 10 ml IV UD PRN PRN Reason: FLUSH Last Admin: 02/28/18 10:08 Dose: 10 ml Sodium Chloride (Saline Flush) 10 ml IV Q12 [facility] Last Admin: 02/28/18 10:09 Dose: 10 ml Trazodone HCl (Desyrel) 50 mg PO HSP PRN PRN Reason: Insomnia Last Admin: 02/25/18 23:29 Dose: 50 mg Vancomycin HCl (Vancomycin Per Pharmacy) 1 order IV UD [facility] Medical - PN: A/P - Time Spent With Patient Total time spent is greater than 50% in coordination of care (as documented) at patient's floor/unit and/or counseling patient: - Narrative A/P Narrative: A/P Necrotizing diabetic cellulitis-managed by wound care, MSSA and strep noted. Vanco discontinued. Patient continues to need hyperbaric treatment. No evidence of osteomyelitis. Diabetes poorly controlled-glucose reasonably controlled now continue on prandial insulin and Byetta Hypertension-BP stable hold lisinopril hydrochlorothiazide for now. Hyperlipidemia continue statin Obesity-needs to lose weight follow-up as outpatient Renal failure-acute kidney injury secondary to vancomycin possible. Check urine analysis hold hydrochlorothiazide and lisinopril given IV fluids and monitor renal function DVT prophylaxis-heparin subcu Diabetic diet Full code
[2018-02-28 17:35] LABS: Appearance,Urine CLEAR; Bacteria,Urine 0 /hpf (0); Bilirubin,Urine NEG (NEG); Color,Urine YELLOW; Glucose,Urine (UA) >=500 mg/dL (NEG); Leukocyte Esterase,Urine NEG /uL (NEG); Mucus,Urine FEW /hpf (0); Protein,Urine NEG (NEG); Specific Gravity,Urine 1.009 (1.000-1.035); Urine Blood NEG mg/dL (<0.03); Urine RBC < 1 /hpf (0-1); Urine Squamous Epithelial Cell 0 /hpf (0-4); Urine WBC 1 /hpf (0-4); Urobilinogen,Urine NEG (NEG)
[2018-02-28] MEDS: SIMVASTATIN 20 MG TABLET PO SCH (21:04)
[2018-02-28] MEDS: SENNOSIDES/DOCUSATE SODIUM 1 TAB TABLET PO SCH (21:04)
[2018-03-01] MEDS: PIPERACILLIN SODIUM/TAZOBACTAM 3.375 GM in DEXTROSE 5% IN WATER 50 ML IV SCH ×4 (05:29→23:39)
[2018-03-01] MEDS: 0.9 % SODIUM CHLORIDE 10 ML SYRINGE IV SCH ×6 (05:29→21:47)
[2018-03-01] MEDS: INSULIN LISPRO 1 UNIT/0.01 ML UNIT SQ SCH ×4 (07:16→21:45)
[2018-03-01] MEDS: EXENATIDE 10 MCG SC SCH ×2 (07:16→17:04)
[2018-03-01 09:22] LABS: Blood Urea Nitrogen 35 mg/dl (6-20)
[2018-03-01] MEDS ORDERED: 0.9 % SODIUM CHLORIDE 1,000 ML IV ONE (09:34)
[2018-03-01] MEDS: MULTIVIT,THER IRON,CA,FA & MIN 1 TABLET PO SCH (10:40)
[2018-03-01] MEDS: INSULIN GLARGINE, HUMAN 1 UNIT/0.01 ML SQ SCH ×2 (10:40→21:46)
[2018-03-01] MEDS: DOCUSATE SODIUM 100 MG CAPSULE PO SCH ×2 (10:40→21:46)
[2018-03-01] MEDS: GENTAMICIN SULFATE 40 MG, CLINDAMYCIN 300 MG, BACITRACIN 25,000 UNIT in SODIUM CHLORIDE... IRR SCH ×2 (10:40→21:46)
[2018-03-01] MEDS: HEPARIN 5,000 UNIT/ML VIAL SQ SCH ×2 (10:40→21:45)
[2018-03-01] MEDS: sitaGLIPtin 100 MG TABLET PO SCH (10:40)
[2018-03-01] MEDS: 0.9 % SODIUM CHLORIDE 10 ML SYRINGE IV PRN (10:41)
--- NOTE | 2018-03-01 11:29 | Internal Med Progress Note ---
Medical - PN: Subj Patient information: Note initiated : 03/01/18 at 11:27 am Service Date, if different from initiated Date: [] Patient: Bro Malave a 52 y/o M admitted on 02/24/18 for Diabetic Foot Wound/Nonhealing Right Foot Ulcer. Chief Complaint: [] Interval history: Mr. Malave is a 52 year old M history of poorly controlled diabetes and chronic nonhealing right foot ulcer/prior amputation of right big toe. Patient has not been using his orthotic shoe and over the last few weeks has noted increasing purulence and discharge around the foot ulcer. He has been followed up with Dr. Corey wound care. During today's evaluation patient underwent debridement and was subsequently directed to [facility] for admission light of poor outpatient response to treatment and persistent cellulitis. Initial workup in the ER was essentially unremarkable. Patient was started on vancomycin and Zosyn given history of MRSA. Cultures were sent from wound care clinic during debridement. Wound care physician Dr. Corey will be following during hospitalization.x-ray lower extremity/MRI" unremarkable for acute osteomyelitis/abscess however significant for cellulitis Hospitalist service was consulted for evaluation and admission At the time of evaluation patient is accompanied with her daughter and . He was able to answer most questions. Patient has had amputation in 1999 and subsequently [address] Cormier. He has been continually followed by wound care. On the last few days he has noticed increasing discharge/purulence along with increasing size of the ulcer. He denies associated fevers shaking chills or leg redness. He denies any other joint swelling and rash headache or photophobia. He denies recent trauma but has been continually bearing weight and not using his orthotics 02/24- putrid discharge plantar aspect. Case reviewed with wound care physician Dr. Corey. Patient will be started on hyperbaric oxygen treatment per Dr. Corey. Doppler lower extremity ultrasound pending. On broad antibiotic coverage. Place PICC line for IV antibiotics. Transfer to inpatient status due to failed outpatient treatment and worsening necrotizing cellulitis. Include gram-negative and anaerobic coverage. February 25- patient undergoing hyperbaric oxygen treatments. Wound management per wound care. On IV antibiotic.wound culture gram-positive cocci.stable labs/ hemodynamics. Afebrile. No overnight events.blood sugars improving with higher doses of Lantus.. Blood sugar down from 467-194. no family at the site. No concerns expressed by nursing staff February 26-ongoing hyperbaric treatment. Possible debridement 24 hours. Wound care ongoing. Improving granulation tissue. Discussed case with wound care physician. Continue antibiotic coverage.wound culture revealed Streptococcus/ staph aureus. Sensitivities pending. Blood cultures negative. blood sugars improved to 124 on higher dose of Lantus. February 27- ongoing hyperbaric oxygen treatment. Wound debridement today by Dr. costa. Blood sugars at 124. Afebrile. No complaints of pain shortness of breath headache. No concerns expressed nursing staff. On diabetic diet. Patient will likely transfer to swing bed status in 24 hours for continued antibiotic coverage. Sensitivities pending on initial wound culture. 02/28-patient seen and examined no acute overnight events. Patient has no complaints. One managed by Dr. Corey. Patient's glucose values are reasonably controlled. The patient's creatinine is trending up. Hold lisinopril or hydrochlorothiazide today. Get a urine analysis give 1 L of fluid and monitor renal function. Patient not ready for swing bed status yet given worsening renal function. Wound culture shows staph and strep this is MSSA staph. I will discontinue vancomycin, vancomycin level was supratherapeutic for which she may have contributed to renal dysfunction. Patient will continue on Zosyn for now 03/01 Patient seen and examined no acute overnight events. Creatinine trended down slowly at 1.8. UA is negative. 7. Level was high. Patient otherwise has no acute complaints or concerns. Plan to continue antibiotics as well as hyperbarics as per wound care. Give 1 L saline additional continue to hold lisinopril and hydrochlorothiazide. Pertinent ROS: Denies headache, dizziness Denies chest pain, palpitations Denies cough or shortness of breath Denies abdominal pain, nausea or vomiting. - Constitutional Vitals: Vital Signs Temp Pulse Resp BP Pulse Ox 98 F 83 18 136/81 95 03/01/18 11:13 03/01/18 04:27 03/01/18 11:13 03/01/18 11:13 03/01/18 11:13 Period Temp Pulse Resp BP Sys/Cruz Pulse Ox Last 24 Hr 97.9 F-98.4 F 82-89 16-18 129-173/75-89 94-95 Intake and Output 02/28/18 03/01/18 03/01/18 21:59 05:59 13:59 Intake Total 2290 / 2290 650 / 650 760 / 760 Output Total 1650 / 1650 1950 / 1950 650 / 650 Balance 640 / 640 -1300 / -1300 110 / 110 Weight 305 lb 8 oz Intake & Output: Intake & Output 02/28/18 03/01/18 03/01/18 21:59 05:59 13:59 Intake Total 2290 / 2290 650 / 650 760 / 760 Output Total 1650 / 1650 1950 / 1950 650 / 650 Balance 640 / 640 -1300 / -1300 110 / 110 Weight 305 lb 8 oz Intake: IV 50 / 50 100 / 100 Zosyn 3.375 gm In Dextrose 5% 50 / 50 100 / 100 in Water 50 ml @ 100 mls/hr IV Q6H [facility] Rx#:[id number] Oral 2240 / 2240 550 / 550 760 / 760 Output: Void Amount 1650 / 1650 1950 / 1950 650 / 650 Other: Meal Aaron crackers Breakfast Percent of Meal Consumed 100% 100% Feeding Ability Independent Independent Exam: Constitutional; Afebrile, cooperative, alert, not in distress. Eyes- No icterus, , No periorbital swelling Ears- Ext ear normal, hearing normal to conversation. Neck- Midline trachea, supple Respiratory system: Air Entry equal on both sides, No crackles or wheezing, no rhonchi. CVS- Rate rhythm regular, S1,S2 heard, no gallop, no rub. Abdomen- Soft nontender abdomen, no organomegaly, no tenderness, no guarding or rigidity, WASTE MACHINE TENDER- AOOx3, moving all extremities, no gross focal deficit noted. Medical - PN: Obj Da - Labs CBC & Chem 7: 02/28/18 05:10 03/01/18 08:19 Labs: Abnormal Lab Results 03/01/18 02/28/18 02/28/18 08:19 16:49 08:17 RBC Hgb Hct RDW Nucleated RBCs BUN 35 H Creatinine 1.8 H Glucose Phosphorus GGT Triglycerides Urine Glucose (UA) >=500 A Vancomycin Trough 26.4 H* 02/28/18 02/28/18 02/27/18 05:10 05:10 04:54 RBC 3.73 L Hgb 11.0 L Hct 31.8 L RDW 15.1 H Nucleated RBCs BUN 33 H 30 H Creatinine 2.0 H 1.6 H Glucose 116 H Phosphorus 4.7 H 4.6 H GGT 63 H Triglycerides 378 H 532 H Urine Glucose (UA) Vancomycin Trough 02/27/18 04:54 RBC 3.74 L Hgb 11.2 L Hct 32.3 L RDW 15.1 H Nucleated RBCs 1 H BUN Creatinine Glucose Phosphorus GGT Triglycerides Urine Glucose (UA) Vancomycin Trough Meds: Medications Acetaminophen (Tylenol) 650 mg PO Q4-6HP PRN PRN Reason: PAIN/FEVER > 101 Dextrose (Dextrose 50%) 0 ml IV UD PRN PRN Reason: Hypoglycemia Diagnostic Test (Pha) (Accu-Chek) 1 each FS ACHS [facility] Last Admin: 03/01/18 07:15 Dose: 1 each Docusate Sodium (Colace) 100 mg PO BID [facility] Last Admin: 03/01/18 10:40 Dose: 100 mg Glucose (Insta-Glucose) 15 gm PO PRN PRN PRN Reason: Hypoglycemia Heparin Sodium (Porcine) (Heparin) 5,000 unit SQ Q12 [facility] Last Admin: 03/01/18 10:40 Dose: 5,000 unit Heparin Sodium (Porcine) (Heparin Flush) 2 ml IV Q12 [facility] Last Admin: 03/01/18 10:40 Dose: 2 ml Magnesium Sulfate (Magnesium Sulfate) 2 gm in 50 mls @ 50 mls/hr IV UD PRN PRN Reason: MG = or < 1.7 Last Infusion: 02/25/18 10:14 Dose: Infused Acetaminophen (Ofirmev) 1,000 mg in 100 mls @ 200 mls/hr IV Q6HP PRN PRN Reason: PAIN/FEVER > 101 Piperacillin Sod/Tazobactam (Sod 3.375 gm/ Dextrose) 50 mls @ 100 mls/hr IV Q6H [facility] Last Infusion: 03/01/18 05:59 Dose: Infused Gentamicin Sulfate 40 mg/Clindamycin Phosphate 300 mg/Bacitracin 25,000 unit/ Sodium Chloride 503 mls @ 0 mls/hr IRR Q12 HELEN PRN Reason: As Directed Last Admin: 03/01/18 10:40 Dose: 100 mls/hr Insulin Glargine (Lantus) 52 unit SQ BID [facility] Last Admin: 03/01/18 10:40 Dose: 52 unit Insulin Human Lispro (Humalog) 0 unit SQ ACHS HELEN PRN Reason: Protocol Last Admin: 03/01/18 07:16 Dose: Not Given Iron Carb/Multivit/[place]/Folic Acid (Multivitamin W/Minerals) 1 tab PO DAILY [facility] Last Admin: 03/01/18 10:40 Dose: 1 tab Magnesium Hydroxide (Milk Of Magnesia) 30 ml PO HSP PRN PRN Reason: Constipation Ondansetron HCl (Zofran) 4 mg IV Q4-6HP PRN PRN Reason: Nausea And Vomiting Exenatide [Byetta] (10 Mcg Inj) 1 dose SC BIDAC [facility] Last Admin: 03/01/18 07:16 Dose: 1 dose Potassium Chloride (Klor-Con) 40 meq PO DAILYP PRN PRN Reason: K+ < 3.5 Last Admin: 02/24/18 09:00 Dose: 40 meq Senna/Docusate Sodium (Senna Plus Tablet) 1 tab PO HS [facility] Last Admin: 02/28/18 21:04 Dose: 1 tab Simvastatin (Zocor) 20 mg PO HS [facility] Last Admin: 02/28/18 21:04 Dose: 20 mg Sitagliptin Phosphate (Januvia) 100 mg PO DAILY [facility] Last Admin: 03/01/18 10:40 Dose: 100 mg Sodium Chloride (Saline Flush) 10 ml IV Q8 [facility] Last Admin: 03/01/18 10:41 Dose: 10 ml Sodium Chloride (Saline Flush) 10 ml IV UD PRN PRN Reason: FLUSH Last Admin: 03/01/18 10:41 Dose: 10 ml Sodium Chloride (Saline Flush) 10 ml IV Q12 [facility] Last Admin: 02/28/18 21:18 Dose: 10 ml Trazodone HCl (Desyrel) 50 mg PO HSP PRN PRN Reason: Insomnia Last Admin: 02/25/18 23:29 Dose: 50 mg Medical - PN: A/P - Time Spent With Patient Total time spent is greater than 50% in coordination of care (as documented) at patient's floor/unit and/or counseling patient: - Narrative A/P Narrative: A/P Necrotizing diabetic cellulitis-managed by wound care, MSSA and strep noted. Vanco discontinued. Patient continues to need hyperbaric treatment. No evidence of osteomyelitis. Diabetes poorly controlled-glucose reasonably controlled now continue on prandial insulin and Byetta, morning glucose was 117 Hypertension-BP stable hold lisinopril hydrochlorothiazide for now. Continue to monitor for now resume medications once kidney function is better Hyperlipidemia continue statin Obesity-needs to lose weight follow-up as outpatient Renal failure-acute kidney injury secondary to vancomycin possible. UA is negative, creatinine is 1.8 today. Was 2.0 yesterday. Patient is voiding freely monitor for now. 1 L additional fluid to be given today DVT prophylaxis-heparin subcu Diabetic diet Full code
--- NOTE | 2018-03-01 13:29 | General Surgery Progress Note ---
Subjective Narrative: Note initiated : 03/01/18 at 1:25 pm Service Date, if different from initiated Date: [] Patient: Bro Malave 52 y/o M admitted on 02/24/18 for Diabetic Foot Wound/Nonhealing Right Foot Ulcer. Chief Complaint: []Patient seen. Progress reviewed with Raiza IBARRA . W/E progress discussed with Dr. Hernández. Hospitalist Physician. Objective Temp Pulse Resp BP Pulse Ox 98 F 83 18 136/81 95 03/01/18 11:13 03/01/18 04:27 03/01/18 11:13 03/01/18 11:13 03/01/18 11:13 AVSS. No changes in SILAS. No acute interval changes in status of wound. Swing Bed Status is on hold whilst renal function change and creatinine elevation is monitored as he is hydrated and medications adjusted. Wound C/S Staph MSSA and Strep. Vancomycin D/Cd but continues to be on Zosyn. - Additional Data Intake & Output - Last 24 hours: Intake & Output 02/27/18 02/28/18 03/01/18 03/02/18 05:59 05:59 05:59 05:59 Intake Total 3440 / 3440 3630 / 3630 3040 / 3040 760 / 760 Output Total 1800 / 1800 2450 / 2450 4550 / 4550 650 / 650 Balance 1640 / 1640 1180 / 1180 -1510 / -1510 110 / 110 Weight 304 lb 8 oz 305 lb 305 lb 8 oz - Labs 02/28/18 05:10 03/01/18 08:19 Diabetes panel 03/01/18 Range/Units 08:19 Sodium 140 (133-145) mmol/L Potassium 4.0 (3.3-5.1) mmol/L Chloride 98 (96-108) mmol/L Carbon Dioxide 29 (22-30) mmol/L BUN 35 H (6-20) mg/dl Creatinine 1.8 H (0.7-1.2) mg/dl Glucose 96 (70-105) mg/dL Calcium 9.9 (8.6-10.4) mg/dl Calcium panel 03/01/18 Range/Units 08:19 Calcium 9.9 (8.6-10.4) mg/dl Pituitary panel 03/01/18 Range/Units 08:19 Sodium 140 (133-145) mmol/L Potassium 4.0 (3.3-5.1) mmol/L Chloride 98 (96-108) mmol/L Carbon Dioxide 29 (22-30) mmol/L BUN 35 H (6-20) mg/dl Creatinine 1.8 H (0.7-1.2) mg/dl Glucose 96 (70-105) mg/dL Calcium 9.9 (8.6-10.4) mg/dl Adrenal panel 03/01/18 Range/Units 08:19 Sodium 140 (133-145) mmol/L Potassium 4.0 (3.3-5.1) mmol/L Chloride 98 (96-108) mmol/L Carbon Dioxide 29 (22-30) mmol/L BUN 35 H (6-20) mg/dl Creatinine 1.8 H (0.7-1.2) mg/dl Glucose 96 (70-105) mg/dL Calcium 9.9 (8.6-10.4) mg/dl Assessment and Plan (1) Sepsis, polymicrobial Status: Acute Current Visit: Yes (2) Sepsis affecting skin Problem details: Assessment: DFU Mixon 3 with CSSSI and uncontrolled diabetes and Necrotizing skin infection of RIGHT foot. Plan: Patient is status post INITIAL debridement in clinic and now admitted to [facility] Surg Floor for ongoing continuity of wound care, IV antibiotics and HBOT Will be following this patient whilst he is in hospital, and for HBOT. Status: Acute Assessment and plan: Assessment: IMPROVING and responding to co-ordinated treatment. Will request Torpedo Shooter to see patient about transfer to Swing Bed Status. For continuity of care. Plan: Continue current treatment. Consult Case management for Swing Bed Status assessment. Current Visit: Yes - Time Spent With Patient Total time spent is greater than 50% in coordination of care (as documented) at patient's floor/unit and/or counseling patient: Assessment: Progressing well from wound care point of view. On Local wound care and ongoing HBOT. Medications adjusted for changes in renal function. Plan: Continue current management. Will check wound and assess for repeat debridement and starting wound VAC. 15 - 24 minutes
[2018-03-01] MEDS ORDERED: hydrALAZINE 20 MG/ML VIAL ONE (20:31)
[2018-03-01] MEDS: hydrALAZINE 20 MG/ML VIAL IV PRN (20:38)
[2018-03-01] MEDS: SENNOSIDES/DOCUSATE SODIUM 1 TAB TABLET PO SCH (21:46)
[2018-03-01] MEDS: SIMVASTATIN 20 MG TABLET PO SCH (21:46)
[2018-03-02 05:20] LABS: ALT/SGPT 13 U/l (0-40); Albumin 3.3 gm/dL (3.2-5.2); Alkaline Phosphatase 98 U/L (39-117); Bilirubin,Direct < 0.2 mg/dL (0.0-0.3); Blood Urea Nitrogen 38 mg/dl (6-20); Gamma Glutamyl Transpeptidase 73 U/L (8-61); Uric Acid 6.9 mg/dL (2.5-8.0)
[2018-03-02] MEDS: 0.9 % SODIUM CHLORIDE 10 ML SYRINGE IV SCH ×5 (05:58→21:45)
[2018-03-02] MEDS: PIPERACILLIN SODIUM/TAZOBACTAM 3.375 GM in DEXTROSE 5% IN WATER 50 ML IV SCH ×4 (05:58→23:34)
[2018-03-02] MEDS: INSULIN LISPRO 1 UNIT/0.01 ML UNIT SQ SCH ×4 (08:00→21:40)
[2018-03-02] MEDS: DOCUSATE SODIUM 100 MG CAPSULE PO SCH ×2 (09:28→21:40)
[2018-03-02] MEDS: MULTIVIT,THER IRON,CA,FA & MIN 1 TABLET PO SCH (09:29)
[2018-03-02] MEDS: sitaGLIPtin 100 MG TABLET PO SCH (09:30)
[2018-03-02] MEDS: INSULIN GLARGINE, HUMAN 1 UNIT/0.01 ML SQ SCH ×2 (09:32→21:43)
[2018-03-02] MEDS: HEPARIN 5,000 UNIT/ML VIAL SQ SCH ×2 (09:34→21:42)
[2018-03-02] MEDS: EXENATIDE 10 MCG SC SCH ×2 (09:35→16:51)
[2018-03-02] MEDS: GENTAMICIN SULFATE 40 MG, CLINDAMYCIN 300 MG, BACITRACIN 25,000 UNIT in SODIUM CHLORIDE... IRR SCH ×2 (10:57→21:44)
--- NOTE | 2018-03-02 11:21 | Internal Med Progress Note ---
Medical - PN: Subj Patient information: Note initiated : 03/02/18 at 11:19 am Service Date, if different from initiated Date: [] Patient: Bro Malave a 52 y/o M admitted on 02/24/18 for Diabetic Foot Wound/Nonhealing Right Foot Ulcer. Chief Complaint: [] Interval history: Mr. Malave is a 52 year old M history of poorly controlled diabetes and chronic nonhealing right foot ulcer/prior amputation of right big toe. Patient has not been using his orthotic shoe and over the last few weeks has noted increasing purulence and discharge around the foot ulcer. He has been followed up with Dr. Corey wound care. During today's evaluation patient underwent debridement and was subsequently directed to [facility] for admission light of poor outpatient response to treatment and persistent cellulitis. Initial workup in the ER was essentially unremarkable. Patient was started on vancomycin and Zosyn given history of MRSA. Cultures were sent from wound care clinic during debridement. Wound care physician Dr. Corey will be following during hospitalization.x-ray lower extremity/MRI" unremarkable for acute osteomyelitis/abscess however significant for cellulitis Hospitalist service was consulted for evaluation and admission At the time of evaluation patient is accompanied with her daughter and . He was able to answer most questions. Patient has had amputation in 1999 and subsequently [address] Cormier. He has been continually followed by wound care. On the last few days he has noticed increasing discharge/purulence along with increasing size of the ulcer. He denies associated fevers shaking chills or leg redness. He denies any other joint swelling and rash headache or photophobia. He denies recent trauma but has been continually bearing weight and not using his orthotics 02/24- putrid discharge plantar aspect. Case reviewed with wound care physician Dr. Corey. Patient will be started on hyperbaric oxygen treatment per Dr. Corey. Doppler lower extremity ultrasound pending. On broad antibiotic coverage. Place PICC line for IV antibiotics. Transfer to inpatient status due to failed outpatient treatment and worsening necrotizing cellulitis. Include gram-negative and anaerobic coverage. February 25- patient undergoing hyperbaric oxygen treatments. Wound management per wound care. On IV antibiotic.wound culture gram-positive cocci.stable labs/ hemodynamics. Afebrile. No overnight events.blood sugars improving with higher doses of Lantus.. Blood sugar down from 467-194. no family at the site. No concerns expressed by nursing staff February 26-ongoing hyperbaric treatment. Possible debridement 24 hours. Wound care ongoing. Improving granulation tissue. Discussed case with wound care physician. Continue antibiotic coverage.wound culture revealed Streptococcus/ staph aureus. Sensitivities pending. Blood cultures negative. blood sugars improved to 124 on higher dose of Lantus. February 27- ongoing hyperbaric oxygen treatment. Wound debridement today by Dr. csota. Blood sugars at 124. Afebrile. No complaints of pain shortness of breath headache. No concerns expressed nursing staff. On diabetic diet. Patient will likely transfer to swing bed status in 24 hours for continued antibiotic coverage. Sensitivities pending on initial wound culture. 02/28-patient seen and examined no acute overnight events. Patient has no complaints. One managed by Dr. Corey. Patient's glucose values are reasonably controlled. The patient's creatinine is trending up. Hold lisinopril or hydrochlorothiazide today. Get a urine analysis give 1 L of fluid and monitor renal function. Patient not ready for swing bed status yet given worsening renal function. Wound culture shows staph and strep this is MSSA staph. I will discontinue vancomycin, vancomycin level was supratherapeutic for which she may have contributed to renal dysfunction. Patient will continue on Zosyn for now 03/01 Patient seen and examined no acute overnight events. Creatinine trended down slowly at 1.8. UA is negative. 7. Level was high. Patient otherwise has no acute complaints or concerns. Plan to continue antibiotics as well as hyperbarics as per wound care. Give 1 L saline additional continue to hold lisinopril and hydrochlorothiazide. 03/02 Patient seen and examined no acute overnight events. Creatinine is stable at 1.8. Blood pressure was high last night. IV hydralazine. We will start on p.o. amlodipine 10 mg once a day today. Continue to hold lisinopril hydrochlorothiazide in light of worsening renal function. Wound care management as per nephrology. Patient is on antibiotics. According to Dr. Corey he is planning to debride the wound today Pertinent ROS: Denies headache, dizziness Denies chest pain, palpitations Denies cough or shortness of breath Denies abdominal pain, nausea or vomiting. - Constitutional Vitals: Vital Signs Temp Pulse Resp BP Pulse Ox 98.3 F 73 16 143/78 94 03/02/18 07:40 03/02/18 08:00 03/02/18 07:40 03/02/18 07:40 03/02/18 07:40 Period Temp Pulse Resp BP Sys/Cruz Pulse Ox Last 24 Hr 98.0 F-98.6 F 69-78 16-18 126-201/72-98 93-95 Intake and Output 03/01/18 03/02/18 03/02/18 21:59 05:59 13:59 Intake Total 2200 / 2200 450 / 450 530 / 530 Output Total 2200 / 2200 1650 / 1650 900 / 900 Balance 0 / 0 -1200 / -1200 -370 / -370 Weight 305 lb Intake & Output: Intake & Output 03/01/18 03/02/18 03/02/18 21:59 05:59 13:59 Intake Total 2200 / 2200 450 / 450 530 / 530 Output Total 2200 / 2200 1650 / 1650 900 / 900 Balance 0 / 0 -1200 / -1200 -370 / -370 Weight 305 lb Intake: IV 1100 / 1100 50 / 50 50 / 50 Zosyn 3.375 gm In Dextrose 5% 100 / 100 50 / 50 50 / 50 in Water 50 ml @ 100 mls/hr IV Q6H [facility] Rx#:[id number] Oral 1100 / 1100 400 / 400 480 / 480 Output: Void Amount 2200 / 2200 1650 / 1650 900 / 900 Other: Meal Breakfast Percent of Meal Consumed 100% Feeding Ability Independent Exam: Constitutional; Afebrile, cooperative, alert, not in distress. Eyes- No icterus, , No periorbital swelling Ears- Ext ear normal, hearing normal to conversation. Neck- Midline trachea, supple Respiratory system: Air Entry equal on both sides, No crackles or wheezing, no rhonchi. CVS- Rate rhythm regular, S1,S2 heard, no gallop, no rub. Abdomen- Soft nontender abdomen, no organomegaly, no tenderness, no guarding or rigidity, [employer]- AOOx3, moving all extremities, no gross focal deficit noted. Medical - PN: Obj Da - Labs CBC & Chem 7: 02/28/18 05:10 03/02/18 04:15 Labs: Abnormal Lab Results [id number] 02/28/18 04:15 08:19 16:49 RBC Hgb Hct RDW BUN 38 H 35 H Creatinine 1.8 H 1.8 H Glucose 141 H Phosphorus 4.9 H GGT 73 H Triglycerides 244 H Urine Glucose (UA) >=500 A Vancomycin Trough 02/28/18 02/28/18 02/28/18 08:17 05:10 05:10 RBC 3.73 L Hgb 11.0 L Hct 31.8 L RDW 15.1 H BUN 33 H Creatinine 2.0 H Glucose Phosphorus 4.7 H GGT 63 H Triglycerides 378 H Urine Glucose (UA) Vancomycin Trough 26.4 H* Meds: Medications Acetaminophen (Tylenol) 650 mg PO Q4-6HP PRN PRN Reason: PAIN/FEVER > 101 Dextrose (Dextrose 50%) 0 ml IV UD PRN PRN Reason: Hypoglycemia Diagnostic Test (Pha) (Accu-Chek) 1 each FS ACHS [facility] Last Admin: 03/02/18 08:00 Dose: 1 each Docusate Sodium (Colace) 100 mg PO BID [facility] Last Admin: 03/02/18 09:28 Dose: 100 mg Glucose (Insta-Glucose) 15 gm PO PRN PRN PRN Reason: Hypoglycemia Heparin Sodium (Porcine) (Heparin) 5,000 unit SQ Q12 [facility] Last Admin: 03/02/18 09:34 Dose: 5,000 unit Heparin Sodium (Porcine) (Heparin Flush) 2 ml IV Q12 [facility] Last Admin: 03/02/18 09:30 Dose: 2 ml Hydralazine HCl (Apresoline) 10 mg IV Q4-6HP PRN PRN Reason: Hypertension Last Admin: 03/01/18 20:38 Dose: 10 mg Magnesium Sulfate (Magnesium Sulfate) 2 gm in 50 mls @ 50 mls/hr IV UD PRN PRN Reason: MG = or < 1.7 Last Infusion: 02/25/18 10:14 Dose: Infused Acetaminophen (Ofirmev) 1,000 mg in 100 mls @ 200 mls/hr IV Q6HP PRN PRN Reason: PAIN/FEVER > 101 Piperacillin Sod/Tazobactam (Sod 3.375 gm/ Dextrose) 50 mls @ 100 mls/hr IV Q6H [facility] Last Infusion: 03/02/18 06:26 Dose: Infused Gentamicin Sulfate 40 mg/Clindamycin Phosphate 300 mg/Bacitracin 25,000 unit/ Sodium Chloride 503 mls @ 0 mls/hr IRR Q12 [facility] PRN Reason: As Directed Last Admin: 03/02/18 10:57 Dose: 20 mls/hr Insulin Glargine (Lantus) 52 unit SQ BID [facility] Last Admin: 03/02/18 09:32 Dose: 52 unit Insulin Human Lispro (Humalog) 0 unit SQ ACHS [facility] PRN Reason: Protocol Last Admin: 03/02/18 08:00 Dose: Not Given Iron Carb/Multivit/Head Of Cytogenetics/Folic Acid (Multivitamin W/Minerals) 1 tab PO DAILY [facility] Last Admin: 03/02/18 09:29 Dose: 1 tab Magnesium Hydroxide (Milk Of Magnesia) 30 ml PO HSP PRN PRN Reason: Constipation Ondansetron HCl (Zofran) 4 mg IV Q4-6HP PRN PRN Reason: Nausea And Vomiting Exenatide [Byetta] (10 Mcg Inj) 1 dose SC BIDAC [facility] Last Admin: 03/02/18 09:35 Dose: 1 dose Potassium Chloride (Klor-Con) 40 meq PO DAILYP PRN PRN Reason: K+ < 3.5 Last Admin: 02/24/18 09:00 Dose: 40 meq Senna/Docusate Sodium (Senna Plus Tablet) 1 tab PO HS [facility] Last Admin: 03/01/18 21:46 Dose: 1 tab Simvastatin (Zocor) 20 mg PO HS [facility] Last Admin: 03/01/18 21:46 Dose: 20 mg Sitagliptin Phosphate (Januvia) 100 mg PO DAILY [facility] Last Admin: 03/02/18 09:30 Dose: 100 mg Sodium Chloride (Saline Flush) 10 ml IV Q8 [facility] Last Admin: 03/02/18 05:58 Dose: 10 ml Sodium Chloride (Saline Flush) 10 ml IV UD PRN PRN Reason: FLUSH Last Admin: 03/01/18 10:41 Dose: 10 ml Sodium Chloride (Saline Flush) 10 ml IV Q12 [facility] Last Admin: 03/02/18 09:36 Dose: 10 ml Trazodone HCl (Desyrel) 50 mg PO HSP PRN PRN Reason: Insomnia Last Admin: 02/25/18 23:29 Dose: 50 mg Medical - PN: A/P - Time Spent With Patient Total time spent is greater than 50% in coordination of care (as documented) at patient's floor/unit and/or counseling patient: - Narrative A/P Narrative: A/P Necrotizing diabetic cellulitis-managed by wound care, MSSA and strep noted. Vanco discontinued. Patient continues to need hyperbaric treatment. No evidence of osteomyelitis. Diabetes poorly controlled-glucose reasonably controlled now continue on prandial insulin and Byetta, his a.m. glucose is well controlled however postprandial is high. He is also on Januvia. Start on Actos today 50 mg once a day and monitor his glucose. Hypertension-BP stable hold lisinopril hydrochlorothiazide for now. Continue to monitor for now resume medications once kidney function is better. Start on amlodipine 10 mg once a day. Hyperlipidemia continue statin, cut back on the dose of Zocor from 20 mg to 10 mg because he has been started on a calcium channel margie which limits the dose of statin simvastatin that can be used in this patient. Obesity-needs to lose weight follow-up as outpatient Renal failure-acute kidney injury likely secondary to vancomycin. Creatinine is 1.8 stable patient is making good amounts of urine, UA is negative if creatinine worsens again we will consider getting an ultrasound of the kidneys and a nephrology evaluation DVT prophylaxis-heparin subcu Diabetic diet Full code
[2018-03-02] MEDS: PIOGLITAZONE 15 MG TABLET PO SCH (12:37)
[2018-03-02] MEDS: amLODIPine 10 MG TABLET PO SCH (12:38)
--- NOTE | 2018-03-02 18:29 | General Surgery Progress Note ---
Subjective Patient reports: other (No complaints or developments from woundcare point of view. BP meds being adjusted, Creatinine steady at 1.8 ) Narrative: Note initiated : 03/02/18 at 6:27 pm Service Date, if different from initiated Date: [] Patient: Bro Malave 52 y/o M admitted on 02/24/18 for Diabetic Foot Wound/Nonhealing Right Foot Ulcer. Chief Complaint: [] Objective Temp Pulse Resp BP Pulse Ox 97.3 F 80 16 132/70 96 03/02/18 14:00 03/02/18 14:00 03/02/18 14:00 03/02/18 14:00 03/02/18 14:00 - Additional Data Intake & Output - Last 24 hours: Intake & Output 02/28/18 03/01/18 03/02/18 03/03/18 05:59 05:59 05:59 05:59 Intake Total 3630 / 3630 3040 / 3040 3410 / 3410 2060 / 2060 Output Total 2450 / 2450 4550 / 4550 4500 / 4500 1900 / 1900 Balance 1180 / 1180 -1510 / -1510 -1090 / -1090 160 / 160 Weight 305 lb 305 lb 8 oz 305 lb 305 lb 03/02/18 18:28 AVSS. Local wound care ongoing. Dressings changed today by STACEY LEDESMA. Wound is pink and getting smaller. Completed HBOT uneventfully. 03/02/18 18:29 - Labs 02/28/18 05:10 03/02/18 04:15 Diabetes panel 03/02/18 Range/Units 04:15 Sodium 140 (133-145) mmol/L Potassium 3.6 (3.3-5.1) mmol/L Chloride 101 (96-108) mmol/L Carbon Dioxide 29 (22-30) mmol/L BUN 38 H (6-20) mg/dl Creatinine 1.8 H (0.7-1.2) mg/dl Glucose 141 H (70-105) mg/dL Calcium 9.9 (8.6-10.4) mg/dl AST 11 (0-37) U/l ALT 13 (0-40) U/l Alkaline Phosphatase 98 (39-117) U/L Total Protein 6.5 (5.9-8.4) gm/dL Albumin 3.3 (3.2-5.2) gm/dL Triglycerides 244 H (<150) mg/dl Calcium panel 03/02/18 Range/Units 04:15 Calcium 9.9 (8.6-10.4) mg/dl Phosphorus 4.9 H (2.7-4.5) mg/dL Albumin 3.3 (3.2-5.2) gm/dL Pituitary panel 03/02/18 Range/Units 04:15 Sodium 140 (133-145) mmol/L Potassium 3.6 (3.3-5.1) mmol/L Chloride 101 (96-108) mmol/L Carbon Dioxide 29 (22-30) mmol/L BUN 38 H (6-20) mg/dl Creatinine 1.8 H (0.7-1.2) mg/dl Glucose 141 H (70-105) mg/dL Calcium 9.9 (8.6-10.4) mg/dl Adrenal panel 03/02/18 Range/Units 04:15 Sodium 140 (133-145) mmol/L Potassium 3.6 (3.3-5.1) mmol/L Chloride 101 (96-108) mmol/L Carbon Dioxide 29 (22-30) mmol/L BUN 38 H (6-20) mg/dl Creatinine 1.8 H (0.7-1.2) mg/dl Glucose 141 H (70-105) mg/dL Calcium 9.9 (8.6-10.4) mg/dl Total Bilirubin 0.6 (0.0-1.0) mg/dL AST 11 (0-37) U/l ALT 13 (0-40) U/l Alkaline Phosphatase 98 (39-117) U/L Total Protein 6.5 (5.9-8.4) gm/dL Albumin 3.3 (3.2-5.2) gm/dL Assessment and Plan (1) Sepsis, polymicrobial Status: Acute Current Visit: Yes (2) Sepsis affecting skin Problem details: Assessment: DFU Mixon 3 with CSSSI and uncontrolled diabetes and Necrotizing skin infection of RIGHT foot. Plan: Patient is status post INITIAL debridement in clinic and now admitted to [facility] Surg Floor for ongoing continuity of wound care, IV antibiotics and HBOT Will be following this patient whilst he is in hospital, and for HBOT. Status: Acute Assessment and plan: Assessment: IMPROVING and responding to co-ordinated treatment. Will request [employer]anc[employer] to see patient about transfer to Swing Bed Status. For continuity of care. Plan: Continue current treatment. Consult Case management for Swing Bed Status assessment. Current Visit: Yes - Narrative A/P Narrative: Assessment. Satisfactory progress. NO interval changes or events. Plan: Continue current treatment. - Time Spent With Patient Total time spent is greater than 50% in coordination of care (as documented) at patient's floor/unit and/or counseling patient: less than 15 minutes
[2018-03-02] MEDS: SENNOSIDES/DOCUSATE SODIUM 1 TAB TABLET PO SCH (21:40)
[2018-03-02] MEDS: SIMVASTATIN 20 MG TABLET PO SCH (21:56)
[2018-03-03] MEDS: 0.9 % SODIUM CHLORIDE 10 ML SYRINGE IV SCH ×6 (00:12→21:26)
[2018-03-03] MEDS: MAGNESIUM SULFATE 2 GM/50 ML BAG IV PRN (03:52)
[2018-03-03] MEDS: hydrALAZINE 20 MG/ML VIAL IV PRN (04:17)
[2018-03-03] MEDS: PIPERACILLIN SODIUM/TAZOBACTAM 3.375 GM in DEXTROSE 5% IN WATER 50 ML IV SCH ×4 (05:00→23:50)
[2018-03-03 06:58] LABS: ALT/SGPT 12 U/l (0-40); Albumin 3.4 gm/dL (3.2-5.2); Alkaline Phosphatase 95 U/L (39-117); Bilirubin,Direct < 0.2 mg/dL (0.0-0.3); Blood Urea Nitrogen 37 mg/dl (6-20); Gamma Glutamyl Transpeptidase 69 U/L (8-61); Uric Acid 6.5 mg/dL (2.5-8.0)
[2018-03-03] MEDS: EXENATIDE 10 MCG SC SCH ×2 (09:31→16:26)
[2018-03-03] MEDS: INSULIN LISPRO 1 UNIT/0.01 ML UNIT SQ SCH ×4 (09:31→21:23)
[2018-03-03] MEDS: INSULIN GLARGINE, HUMAN 1 UNIT/0.01 ML SQ SCH ×2 (09:32→21:24)
[2018-03-03] MEDS: MULTIVIT,THER IRON,CA,FA & MIN 1 TABLET PO SCH (09:32)
[2018-03-03] MEDS: sitaGLIPtin 100 MG TABLET PO SCH (09:32)
[2018-03-03] MEDS: amLODIPine 10 MG TABLET PO SCH (09:32)
[2018-03-03] MEDS: PIOGLITAZONE 15 MG TABLET PO SCH (09:32)
[2018-03-03] MEDS: DOCUSATE SODIUM 100 MG CAPSULE PO SCH ×2 (09:32→21:25)
[2018-03-03] MEDS: HEPARIN 5,000 UNIT/ML VIAL SQ SCH ×2 (09:33→21:24)
[2018-03-03] MEDS: GENTAMICIN SULFATE 40 MG, CLINDAMYCIN 300 MG, BACITRACIN 25,000 UNIT in SODIUM CHLORIDE... IRR SCH ×2 (09:33→21:26)
--- NOTE | 2018-03-03 10:02 | Ultrasound Report ---
CLINICAL INFORMATION: Renal failure COMPARISON: None. FINDINGS: Both kidneys are normal in size, position, configuration and echotexture: Right is 12.9 x 6 cm and the left is 12.7 x 6 cm. No hydronephrosis, solid or cystic lesion or stone. Arterial blood low in grossly normal to both kidneys on color and spectral Doppler Urinary bladder volume is 793 cc with 7 cc post void residual. No focal bladder lesions IMPRESSION: Both kidneys are unremarkable Moderate distention of the urinary bladder but no post void residual Interpreted and Authenticated by: Chi Estes 03/03/18
--- NOTE | 2018-03-03 11:01 | Internal Med Progress Note ---
Medical - PN: Subj Patient information: Note initiated : 03/03/18 at 10:58 am Service Date, if different from initiated Date: [] Patient: Bro Malave a 52 y/o M admitted on 02/24/18 for Diabetic Foot Wound/Nonhealing Right Foot Ulcer. Chief Complaint: [] Interval history: Mr. Malave is a 52 year old M history of poorly controlled diabetes and chronic nonhealing right foot ulcer/prior amputation of right big toe. Patient has not been using his orthotic shoe and over the last few weeks has noted increasing purulence and discharge around the foot ulcer. He has been followed up with Dr. Corey wound care. During today's evaluation patient underwent debridement and [facility] light of poor outpatient response to treatment and persistent cellulitis. Initial workup in the ER was essentially unremarkable. Patient was started on vancomycin and Zosyn given history of MRSA. Cultures were sent from wound care clinic during debridement. Wound care physician Dr. Corey will be following during hospitalization.x-ray lower extremity/MRI" unremarkable for acute osteomyelitis/abscess however significant for cellulitis Hospitalist service was consulted for evaluation and admission At the time of evaluation patient is accompanied with her daughter and . He was able to answer most questions. Patient has had amputation in 1999 and subsequently [address] Cormier. He has been continually followed by wound care. On the last few days he has noticed increasing discharge/purulence along with increasing size of the ulcer. He denies associated fevers shaking chills or leg redness. He denies any other joint swelling and rash headache or photophobia. He denies recent trauma but has been continually bearing weight and not using his orthotics 02/24- putrid discharge plantar aspect. Case reviewed with wound care physician Dr. Corey. Patient will be started on hyperbaric oxygen treatment per Dr. Corey. Doppler lower extremity ultrasound pending. On broad antibiotic coverage. Place PICC line for IV antibiotics. Transfer to inpatient status due to failed outpatient treatment and worsening necrotizing cellulitis. Include gram-negative and anaerobic coverage. February 25- patient undergoing hyperbaric oxygen treatments. Wound management per wound care. On IV antibiotic.wound culture gram-positive cocci.stable labs/ hemodynamics. Afebrile. No overnight events.blood sugars improving with higher doses of Lantus.. Blood sugar down from 467-194. no family at the site. No concerns expressed by nursing staff February 26-ongoing hyperbaric treatment. Possible debridement 24 hours. Wound care ongoing. Improving granulation tissue. Discussed case with wound care physician. Continue antibiotic coverage.wound culture revealed Streptococcus/ staph aureus. Sensitivities pending. Blood cultures negative. blood sugars improved to 124 on higher dose of Lantus. February 27- ongoing hyperbaric oxygen treatment. Wound debridement today by Dr. costa. Blood sugars at 124. Afebrile. No complaints of pain shortness of breath headache. No concerns expressed nursing staff. On diabetic diet. Patient will likely transfer to swing bed status in 24 hours for continued antibiotic coverage. Sensitivities pending on initial wound culture. 02/28-patient seen and examined no acute overnight events. Patient has no complaints. One managed by Dr. Corey. Patient's glucose values are reasonably controlled. The patient's creatinine is trending up. Hold lisinopril or hydrochlorothiazide today. Get a urine analysis give 1 L of fluid and monitor renal function. Patient not ready for swing bed status yet given worsening renal function. Wound culture shows staph and strep this is MSSA staph. I will discontinue vancomycin, vancomycin level was supratherapeutic for which she may have contributed to renal dysfunction. Patient will continue on Zosyn for now 03/01 Patient seen and examined no acute overnight events. Creatinine trended down slowly at 1.8. UA is negative. 7. Level was high. Patient otherwise has no acute complaints or concerns. Plan to continue antibiotics as well as hyperbarics as per wound care. Give 1 L saline additional continue to hold lisinopril and hydrochlorothiazide. 03/02 Patient seen and examined no acute overnight events. Creatinine is stable at 1.8. Blood pressure was high last night. IV hydralazine. We will start on p.o. amlodipine 10 mg once a day today. Continue to hold lisinopril hydrochlorothiazide in light of worsening renal function. Wound care management as per nephrology. Patient is on antibiotics. According to Dr. Corey he is planning to debride the wound today 03/03 Patient seen and examined no acute overnight events, creatinine worsened again to 2.0. Patient is making good amount of urine. Blood pressure was still high last night. Needs IV hydralazine. Will start on amlodipine 10 mg yesterday. Blood pressure this morning seems to be okay. Hydrochlorothiazide and lisinopril are held because of renal failure. We will recheck urinalysis urine lites and get a renal ultrasound get a nephrology consult. Plan of care reviewed with wound care patient will be having a wound debridement tomorrow and possibly discharge home's from there. Pertinent ROS: Denies headache, dizziness Denies chest pain, palpitations Denies cough or shortness of breath Denies abdominal pain, nausea or vomiting. - Constitutional Vitals: Vital Signs Temp Pulse Resp BP Pulse Ox 97.8 F 68 14 140/74 97 03/03/18 07:10 03/03/18 07:10 03/03/18 07:10 03/03/18 07:10 03/03/18 03:50 Period Temp Pulse Resp BP Sys/Cruz Pulse Ox Last 24 Hr 97.3 F-98.3 F 68-80 12-16 132-174/70-92 95-97 Intake and Output 03/02/18 03/03/18 03/03/18 21:59 05:59 13:59 Intake Total 1330 / 1330 400 / 400 50 / 50 Output Total 2525 / 2525 1050 / 1050 Balance -1195 / -1195 -650 / -650 50 / 50 Weight 303 lb 8 oz Intake & Output: Intake & Output 03/02/18 03/03/18 03/03/18 21:59 05:59 13:59 Intake Total 1330 / 1330 400 / 400 50 / 50 Output Total 2525 / 2525 1050 / 1050 Balance -1195 / -1195 -650 / -650 50 / 50 Weight 303 lb 8 oz Intake: IV 50 / 50 50 / 50 50 / 50 Zosyn 3.375 gm In Dextrose 5% 50 / 50 50 / 50 50 / 50 in Water 50 ml @ 100 mls/hr IV Q6H [facility] Rx#:[id number] Oral 1280 / 1280 350 / 350 Output: Void Amount 2525 / 2525 1050 / 1050 Other: Meal Dinner Percent of Meal Consumed 100% Feeding Ability Independent # Voids 1 1 # Bowel Movements 1 Exam: Constitutional; Afebrile, cooperative, alert, not in distress. Eyes- No icterus, , No periorbital swelling Ears- Ext ear normal, hearing normal to conversation. Neck- Midline trachea, supple Respiratory system: Air Entry equal on both sides, No crackles or wheezing, no rhonchi. CVS- Rate rhythm regular, S1,S2 heard, no gallop, no rub. Abdomen- Soft nontender abdomen, no organomegaly, no tenderness, no guarding or rigidity, MACHINE FEEDER- AOOx3, moving all extremities, no gross focal deficit noted. Medical - PN: Obj Da - Labs CBC & Chem 7: 02/28/18 05:10 03/03/18 04:00 Labs: Abnormal Lab Results 03/03/18 03/02/18 03/01/18 04:00 04:15 08:19 BUN 37 H 38 H 35 H Creatinine 2.0 H 1.8 H 1.8 H Glucose 133 H 141 H Phosphorus 4.9 H 4.9 H GGT 69 H 73 H Triglycerides 242 H 244 H Urine Glucose (UA) 02/28/18 16:49 BUN Creatinine Glucose Phosphorus GGT Triglycerides Urine Glucose (UA) >=500 A Meds: Medications Acetaminophen (Tylenol) 650 mg PO Q4-6HP PRN PRN Reason: PAIN/FEVER > 101 Amlodipine Besylate (Norvasc) 10 mg PO DAILY [facility] Last Admin: 03/03/18 09:32 Dose: 10 mg Dextrose (Dextrose 50%) 0 ml IV UD PRN PRN Reason: Hypoglycemia Diagnostic Test (Pha) (Accu-Chek) 1 each FS ACHS [facility] Last Admin: 03/03/18 09:30 Dose: 1 each Docusate Sodium (Colace) 100 mg PO BID [facility] Last Admin: 03/03/18 09:32 Dose: 100 mg Glucose (Insta-Glucose) 15 gm PO PRN PRN PRN Reason: Hypoglycemia Heparin Sodium (Porcine) (Heparin) 5,000 unit SQ Q12 [facility] Last Admin: 03/03/18 09:33 Dose: 5,000 unit Heparin Sodium (Porcine) (Heparin Flush) 2 ml IV Q12 [facility] Last Admin: 03/03/18 09:34 Dose: 2 ml Hydralazine HCl (Apresoline) 10 mg IV Q4-6HP PRN PRN Reason: Hypertension Last Admin: 03/03/18 04:17 Dose: 10 mg Magnesium Sulfate (Magnesium Sulfate) 2 gm in 50 mls @ 50 mls/hr IV UD PRN PRN Reason: MG = or < 1.7 Last Admin: 03/03/18 03:52 Dose: 50 mls/hr Acetaminophen (Ofirmev) 1,000 mg in 100 mls @ 200 mls/hr IV Q6HP PRN PRN Reason: PAIN/FEVER > 101 Piperacillin Sod/Tazobactam (Sod 3.375 gm/ Dextrose) 50 mls @ 100 mls/hr IV Q6H [facility] Last Infusion: 03/03/18 06:43 Dose: Infused Gentamicin Sulfate 40 mg/Clindamycin Phosphate 300 mg/Bacitracin 25,000 unit/ Sodium Chloride 503 mls @ 0 mls/hr IRR Q12 [facility] PRN Reason: As Directed Last Admin: 03/03/18 09:33 Dose: 1 mls/hr Insulin Glargine (Lantus) 52 unit SQ BID [facility] Last Admin: 03/03/18 09:32 Dose: 52 unit Insulin Human Lispro (Humalog) 0 unit SQ ACHS [facility] PRN Reason: Protocol Last Admin: 03/03/18 09:31 Dose: 3 unit Iron Carb/Multivit/Quiller Operator/Folic Acid (Multivitamin W/Minerals) 1 tab PO DAILY [facility] Last Admin: 03/03/18 09:32 Dose: 1 tab Magnesium Hydroxide (Milk Of Magnesia) 30 ml PO HSP PRN PRN Reason: Constipation Ondansetron HCl (Zofran) 4 mg IV Q4-6HP PRN PRN Reason: Nausea And Vomiting Exenatide [Byetta] (10 Mcg Inj) 1 dose SC BIDAC [facility] Last Admin: 03/03/18 09:31 Dose: 1 dose Pioglitazone HCl (Actos) 15 mg PO DAILY [facility] Last Admin: 03/03/18 09:32 Dose: 15 mg Potassium Chloride (Klor-Con) 40 meq PO DAILYP PRN PRN Reason: K+ < 3.5 Last Admin: 02/24/18 09:00 Dose: 40 meq Senna/Docusate Sodium (Senna Plus Tablet) 1 tab PO HS [facility] Last Admin: 03/02/18 21:40 Dose: 1 tab Simvastatin (Zocor) 10 mg PO HS [facility] Last Admin: 03/02/18 21:56 Dose: 10 mg Sitagliptin Phosphate (Januvia) 100 mg PO DAILY [facility] Last Admin: 03/03/18 09:32 Dose: 100 mg Sodium Chloride (Saline Flush) 10 ml IV Q8 [facility] Last Admin: 03/03/18 05:45 Dose: 10 ml Sodium Chloride (Saline Flush) 10 ml IV UD PRN PRN Reason: FLUSH Last Admin: 03/01/18 10:41 Dose: 10 ml Sodium Chloride (Saline Flush) 10 ml IV Q12 [facility] Last Admin: 03/02/18 21:45 Dose: 10 ml Trazodone HCl (Desyrel) 50 mg PO HSP PRN PRN Reason: Insomnia Last Admin: 02/25/18 23:29 Dose: 50 mg Medical - PN: A/P - Time Spent With Patient Total time spent is greater than 50% in coordination of care (as documented) at patient's floor/unit and/or counseling patient: - Narrative A/P Narrative: A/P Necrotizing diabetic cellulitis-managed by wound care, MSSA and strep noted. Vanco discontinued. Patient continues to need hyperbaric treatment. No evidence of osteomyelitis. Diabetes poorly controlled-glucose reasonably controlled now continue on prandial insulin and Byetta, his a.m. glucose is well controlled however postprandial is high. He is also on Januvia. Started on Actos today 15 . Last glucose is 157 monitor for now has been high overnight. Hypertension-BP stable hold lisinopril hydrochlorothiazide for now. Continue to monitor for now resume medications once kidney function is better. Start on amlodipine 10 mg once a day. Consider adding additional agent as blood pressure keeps staying high Hyperlipidemia continue statin, cut back on the dose of Zocor from 20 mg to 10 mg because he has been started on a calcium channel margie which limits the dose of statin simvastatin that can be used in this patient. Obesity-needs to lose weight follow-up as outpatient Renal failure-acute kidney injury likely secondary to vancomycin. Creatinine is 2.0 today, nephrology consulted, DVT prophylaxis-heparin subcu Diabetic diet Full code
--- NOTE | 2018-03-03 11:14 | Nephrology Consult Note ---
History of Present Illness - Reason for Consult Patient information: Note initiated : 03/03/18 at 11:12 am Patient: Bro Malave is a [id number] male with hypertension, hyperlipidemia and diabetes mellitus type 2, but no history of chronic kidney disease, admitted on 02/23/18 for diabetic nonhealing ulcer of the right foot. Chief Complaint: Right foot ulcer. Consult date: 03/03/18 acute renal failure Requesting physician: Delvis Hernández - Chief Complaint Right foot ulcer - History of Present Illness Bro Malave is a [id number] male with hypertension, hyperlipidemia and diabetes mellitus type 2, but no history of chronic kidney disease, admitted on 02/23/18 for diabetic nonhealing ulcer of the right foot. Serum creatinine started ti rise on 02/28/18. He reports no problems with urination. Review of Systems Constitutional: weakness, no headache(s) Nose, mouth and throat: no nasal congestion, no sore throat Cardiovascular: no chest pain, no leg edema, no palpatations Respiratory: no cough, no dyspnea, no hemoptysis Gastrointestinal: no abdominal pain, no nausea, no vomiting Genitourinary: no difficulty urinating, no dysuria, no hematuria Musculoskeletal: no back pain, no neck pain Integumentary: wounds Neurological: no confusion, no focal weakness Psychiatric: no anxiety, no depression Endocrine: no cold intolerance, no heat intolerance Hematologic/Lymphatic: no easy bleeding, no easy bruising Allergic/Immunologic: no tongue swelling, no uticaria Past History Past medical history: Hypertension. Hyperlipidemia. Diabetes mellitus type 2. Past family history: No history of kidney problems in his parents. Past social history: Nonsmoker nondrinker. No history of substance abuse. Medications and Allergies Home Medications Medication Instructions Recorded Confirmed Type Lisinopril [Zestril] 30 mg PO DAILY 07/15/16 02/23/18 History Simvastatin [Zocor] 20 mg PO DAILY 07/15/16 02/23/18 History metFORMIN HCL [Fortamet] 1,000 mg PO BID 07/15/16 02/23/18 History Cholecalciferol (Vitamin D3) 1,000 unit PO DAILY 02/23/18 02/23/18 History [Vitamin D] Exenatide [Byetta] 10 mcg SQ BID 02/23/18 02/23/18 History Hydrochlorothiazide [Oretic] 25 mg PO DAILY 02/23/18 02/23/18 History Insulin Detemir [Levemir] 44 unit SQ BID 02/23/18 02/23/18 History Allergies Allergy/AdvReac Type Severity Reaction Status Date / Time No Known Drug Allergies Allergy Verified 07/15/16 10:33 Exam - Vital Signs Vital signs: Temp Pulse Resp BP Pulse Ox 97.8 F 68 14 140/74 97 03/03/18 07:10 03/03/18 07:10 03/03/18 07:10 03/03/18 07:10 03/03/18 03:50 - General Appearance General appearance: well-developed, well-nourished, appears started age EENT: mucous membranes moist Neck: no JVD, supple Respiratory: clear Cardiology: regular rate, normal S1, normal S2 Gastrointestinal: no tenderness Integumentary: warm and dry, ulcer Neurologic: no focal deficit Musculoskeletal: no erythema, no cyanosis Psychiatric: mood/affect appropriate, cooperative Results - Lab Results 02/28/18 05:10 03/03/18 04:00 Most recent lab results Calcium 10.2 mg/dl (8.6-10.4) 03/03/18 04:00 Phosphorus 4.9 mg/dL (2.7-4.5) H 03/03/18 04:00 Magnesium 2.4 mg/dL (1.6-2.5) 03/03/18 04:00 Assessment and Plan (1) Acute kidney injury Acute kidney injury, associated with Vancomycin use with high level. No IV contrast administration or NSAID use. Intravascular volume depletion or acute glomerulonephritis unlikely per work up. Acute interstitial nephritis and acute toxic nephropathy associated with antibiotics considered. Work up: Renal US on 03/03/18: Both kidneys are unremarkable. Moderate distention of the urinary bladder but no post void residual. Urinalysis on 02/28/18: Yellow, clear, pH 5.0, SG 1.009, protein negative, occult blood negative. Progress: Blood pressure high normal. Serum creatinine increased from baseline of 0.8-1.0 (02/23-02/26) to 1.6-2.0 (-03/03). Urine output 4475 ml reported. Recommendations: Repeat urinalysis. Hold ACEI/ARB and Metformin. Avoid IV Contrast and NSAIDs. Status: Acute Priority: High
--- NOTE | 2018-03-03 17:12 | General Surgery Progress Note ---
Subjective Narrative: Note initiated : 03/03/18 at 5:08 pm Service Date, if different from initiated Date: [] Patient: Bro Malave 52 y/o M admitted on 02/24/18 for Diabetic Foot Wound/Nonhealing Right Foot Ulcer. Chief Complaint: []Patient seen on floor late afternoon today. He is currently undergoing HBOT for DFU Mixon 3 with CSSI. Objective Temp Pulse Resp BP Pulse Ox 97.4 F 70 20 152/82 99 03/03/18 15:58 03/03/18 15:58 03/03/18 15:58 03/03/18 15:58 03/03/18 15:58 AVSS. No changes in SILAS. Lab results RISING Creatinine. Appreciate Nephrology input from Dr. BARRETO. Vancomycin induced JAVI considered. Vanco on hold at this time. On Zosyn. Wound cultures: [place] sensitive staph and strep. - Additional Data Intake & Output - Last 24 hours: Intake & Output 03/01/18 03/02/18 03/03/18 03/04/18 05:59 05:59 05:59 05:59 Intake Total 3040 / 3040 3410 / 3410 3310 / 3310 650 / 650 Output Total 4550 / 4550 4500 / 4500 4475 / 4475 850 / 850 Balance -1510 / -1510 -1090 / -1090 -1165 / -1165 -200 / -200 Weight 305 lb 8 oz 305 lb 303 lb 8 oz - Labs 02/28/18 05:10 03/03/18 04:00 Diabetes panel 03/03/18 Range/Units 04:00 Sodium 140 (133-145) mmol/L Potassium 3.8 (3.3-5.1) mmol/L Chloride 99 (96-108) mmol/L Carbon Dioxide 27 (22-30) mmol/L BUN 37 H (6-20) mg/dl Creatinine 2.0 H (0.7-1.2) mg/dl Glucose 133 H (70-105) mg/dL Calcium 10.2 (8.6-10.4) mg/dl AST 11 (0-37) U/l ALT 12 (0-40) U/l Alkaline Phosphatase 95 (39-117) U/L Total Protein 6.7 (5.9-8.4) gm/dL Albumin 3.4 (3.2-5.2) gm/dL Triglycerides 242 H (<150) mg/dl Calcium panel 03/03/18 Range/Units 04:00 Calcium 10.2 (8.6-10.4) mg/dl Phosphorus 4.9 H (2.7-4.5) mg/dL Albumin 3.4 (3.2-5.2) gm/dL Pituitary panel 03/03/18 Range/Units 04:00 Sodium 140 (133-145) mmol/L Potassium 3.8 (3.3-5.1) mmol/L Chloride 99 (96-108) mmol/L Carbon Dioxide 27 (22-30) mmol/L BUN 37 H (6-20) mg/dl Creatinine 2.0 H (0.7-1.2) mg/dl Glucose 133 H (70-105) mg/dL Calcium 10.2 (8.6-10.4) mg/dl Adrenal panel 03/03/18 Range/Units 04:00 Sodium 140 (133-145) mmol/L Potassium 3.8 (3.3-5.1) mmol/L Chloride 99 (96-108) mmol/L Carbon Dioxide 27 (22-30) mmol/L BUN 37 H (6-20) mg/dl Creatinine 2.0 H (0.7-1.2) mg/dl Glucose 133 H (70-105) mg/dL Calcium 10.2 (8.6-10.4) mg/dl Total Bilirubin 0.7 (0.0-1.0) mg/dL AST 11 (0-37) U/l ALT 12 (0-40) U/l Alkaline Phosphatase 95 (39-117) U/L Total Protein 6.7 (5.9-8.4) gm/dL Albumin 3.4 (3.2-5.2) gm/dL Assessment and Plan (1) Sepsis, polymicrobial Status: Acute Current Visit: Yes (2) Sepsis affecting skin Problem details: Assessment: DFU Mixon 3 with CSSSI and uncontrolled diabetes and Necrotizing skin infection of RIGHT foot. Plan: Patient is status post INITIAL debridement in clinic and now admitted to [facility] Surg Floor for ongoing continuity of wound care, IV antibiotics and HBOT Will be following this patient whilst he is in hospital, and for HBOT. Status: Acute Assessment and plan: Assessment: IMPROVING and responding to co-ordinated treatment. Will request Urology Nurse to see patient about transfer to Swing Bed Status. For continuity of care. Plan: Continue current treatment. Consult Case management for Swing Bed Status assessment. Current Visit: Yes - Time Spent With Patient Total time spent is greater than 50% in coordination of care (as documented) at patient's floor/unit and/or counseling patient: Assessment: CSSSI, DFU Mixon 3 , s/p dbridement. On HBOT Transfer to swing bed status on hold. Plan: Will check wound at bedside tomorrow morning and make further recommendations. 15 - 24 minutes
[2018-03-03] MEDS: SIMVASTATIN 20 MG TABLET PO SCH (21:24)
[2018-03-03] MEDS: SENNOSIDES/DOCUSATE SODIUM 1 TAB TABLET PO SCH (21:24)
[2018-03-03 23:19] LABS: Appearance,Urine CLEAR; Bacteria,Urine 0 /hpf (0); Bilirubin,Urine NEG (NEG); Color,Urine STRAW; Glucose,Urine (UA) >=500 mg/dL (NEG); Leukocyte Esterase,Urine NEG /uL (NEG); Protein,Urine NEG (NEG); Specific Gravity,Urine 1.008 (1.000-1.035); Urine Blood NEG mg/dL (<0.03); Urine RBC 0 /hpf (0-1); Urine Squamous Epithelial Cell < 1 /hpf (0-4); Urine WBC 1 /hpf (0-4); Urobilinogen,Urine NEG (NEG)
[2018-03-04] MEDS: 0.9 % SODIUM CHLORIDE 10 ML SYRINGE IV PRN (00:27)
[2018-03-04] MEDS: hydrALAZINE 20 MG/ML VIAL IV PRN (00:31)
[2018-03-04] MEDS: PIPERACILLIN SODIUM/TAZOBACTAM 3.375 GM in DEXTROSE 5% IN WATER 50 ML IV SCH ×2 (05:14→12:34)
[2018-03-04] MEDS: 0.9 % SODIUM CHLORIDE 10 ML SYRINGE IV SCH ×4 (05:50→13:33)
--- NOTE | 2018-03-04 06:24 | Nephrology Progress Note ---
Subjective Patient information: Note initiated : 03/04/18 at 6:22 am Patient: Bro Malave is a [id number]-aoa male with hypertension, hyperlipidemia and diabetes mellitus type 2, but no history of chronic kidney disease, admitted on 02/23/18 for diabetic nonhealing ulcer of the right foot. Chief Complaint: Right foot ulcer. Principal diagnosis: Acute kidney injury Interval history: No significant events overnight. Pertinent ROS: Weakness. No change in urination. Objective - Vital Signs Vital signs: Vital Signs Temp Pulse Resp BP Pulse Ox 03/04/18 04:00 98.5 F 74 16 114/68 94 03/04/18 02:30 156/80 03/04/18 00:00 96.8 F L 80 16 176/84 93 03/03/18 20:00 97.5 F 84 16 172/86 99 03/03/18 15:58 97.4 F 70 20 152/82 99 03/03/18 12:00 97.8 F 60 16 160/84 03/03/18 07:10 97.8 F 68 14 140/74 Intake and Output 03/03/18 03/04/18 03/04/18 21:59 05:59 13:59 Intake Total 650 / 650 50 / 50 Output Total 1550 / 1550 1475 / 1475 Balance -900 / -900 -1425 / -1425 Intake: IV 50 / 50 50 / 50 Zosyn 3.375 gm In Dextrose 5% 50 / 50 50 / 50 in Water 50 ml @ 100 mls/hr IV Q6H [facility] Rx#:[id number] Oral 600 / 600 Output: Void Amount 1550 / 1550 1475 / 1475 Other: Weight 297 lb 8 oz Intake & Output: Intake & Output 03/03/18 03/04/18 03/04/18 21:59 05:59 13:59 Intake Total 650 / 650 50 / 50 Output Total 1550 / 1550 1475 / 1475 Balance -900 / -900 -1425 / -1425 Weight 297 lb 8 oz Intake: IV 50 / 50 50 / 50 Zosyn 3.375 gm In Dextrose 5% 50 / 50 50 / 50 in Water 50 ml @ 100 mls/hr IV Q6H [facility] Rx#:[id number] Oral 600 / 600 Output: Void Amount 1550 / 1550 1475 / 1475 - General Appearance General appearance: well-nourished, appears started age EENT: mucous membranes moist, hearing intact Neck: no JVD, supple Respiratory: clear Cardiology: normal S1, normal S2 Gastrointestinal: no tenderness Integumentary: no rash, warm and dry Neurologic: no focal deficit Musculoskeletal: no erythema Psychiatric: mood/affect appropriate, cooperative - Lab 02/28/18 05:10 03/04/18 04:00 Most recent lab results Calcium 10.2 mg/dl (8.6-10.4) 03/03/18 04:00 Phosphorus 4.9 mg/dL (2.7-4.5) H 03/03/18 04:00 Magnesium 2.4 mg/dL (1.6-2.5) 03/03/18 04:00 Assessment and Plan (1) Acute kidney injury Acute kidney injury. No IV contrast administration or NSAID use. Intravascular volume depletion, acute interstitial nephritis or acute glomerulonephritis unlikely per work up. Acute toxic nephropathy associated with antibiotics considered. Work up: Renal US on 03/03/18: Both kidneys are unremarkable. Moderate distention of the urinary bladder but no post void residual. Urinalysis on 02/28/18: Yellow, clear, pH 5.0, SG 1.009, protein negative, occult blood negative. Urinalysis on 03/03/18: Straw, clear, pH 7.0, SG 1.008, protein negative, occult blood negative, urine eosinophils TNP, urine protein/creatinine 150 mg/g creatinine. Progress: Blood pressure high normal. Serum creatinine increased from baseline of 0.8-1.0 (02/23-02/26) to 1.6-2.0 (-03/03). Last 24 hours: Urine output 3025 ml reported. Serum creatinine decreased from 2.0 to 1.9 in the past 24 hours. Recommendations: Hold ACEI/ARB and Metformin. Avoid IV Contrast and NSAIDs. Status: Acute Priority: High
[2018-03-04 06:52] LABS: ALT/SGPT 11 U/l (0-40); Albumin 3.5 gm/dL (3.2-5.2); Albumin/Globulin Ratio 1.1 (1.0-2.3); Alkaline Phosphatase 94 U/L (39-117); Bilirubin,Direct < 0.2 mg/dL (0.0-0.3); Blood Urea Nitrogen 38 mg/dl (6-20); Gamma Glutamyl Transpeptidase 66 U/L (8-61); Uric Acid 6.3 mg/dL (2.5-8.0)
[2018-03-04] MEDS: INSULIN LISPRO 1 UNIT/0.01 ML UNIT SQ SCH ×4 (07:58→17:09)
[2018-03-04] MEDS: GENTAMICIN SULFATE 40 MG, CLINDAMYCIN 300 MG, BACITRACIN 25,000 UNIT in SODIUM CHLORIDE... IRR SCH (08:38)
--- NOTE | 2018-03-04 08:48 | General Surgery Progress Note ---
Subjective Narrative: Note initiated : 03/04/18 at 8:46 am Service Date, if different from initiated Date: [] Patient: Bro Malave 52 y/o M admitted on 02/24/18 for Diabetic Foot Wound/Nonhealing Right Foot Ulcer. Chief Complaint: [] Patient seen with Melissa RN, Inpatient wound care nurse. No new complaints. Doing well and keen to go home and carry out out patient wound care and HBOT. Nephrology note reviewed. Creatinine now down to 1.9. Objective Temp Pulse Resp BP Pulse Ox 98.5 F 72 16 116/70 94 03/04/18 07:26 03/04/18 07:26 03/04/18 07:26 03/04/18 07:26 03/04/18 07:26 AVSS: SILAS No interval changes. WNL. Local Examination: Left plantar wound is clean and dry. Base covered with 100 % granulation tissue. Minimal serous drainage and NO odor. RESOLVED cellulitis and soft tissue inflammation. NEEDS TO CONTINUE WITH ORAL ANTIBIOTICS P O AUGMENTIN FOR 15 DAYS NEEDS TO FOLLOW THROUGH AND COMPLETE OUT PATIENT HBOT for expedited wound healing. Patient will do his own wound care as out patient and make arrangements for out patient HBOT. - Additional Data Intake & Output - Last 24 hours: Intake & Output 03/02/18 03/03/18 03/04/18 03/05/18 05:59 05:59 05:59 05:59 Intake Total 3410 / 3410 3310 / 3310 800 / 800 Output Total 4500 / 4500 4475 / 4475 3025 / 3025 Balance -1090 / -1090 -1165 / -1165 -2225 / -2225 Weight 305 lb 303 lb 8 oz 297 lb 8 oz - Labs 02/28/18 05:10 03/04/18 04:00 Diabetes panel 03/04/18 Range/Units 04:00 Sodium 138 (133-145) mmol/L Potassium 3.6 (3.3-5.1) mmol/L Chloride 97 (96-108) mmol/L Carbon Dioxide 28 (22-30) mmol/L BUN 38 H (6-20) mg/dl Creatinine 1.9 H (0.7-1.2) mg/dl Glucose 115 H (70-105) mg/dL Calcium 9.9 (8.6-10.4) mg/dl AST 12 (0-37) U/l ALT 11 (0-40) U/l Alkaline Phosphatase 94 (39-117) U/L Total Protein 6.8 (5.9-8.4) gm/dL Albumin 3.5 (3.2-5.2) gm/dL Triglycerides 258 H (<150) mg/dl Calcium panel 03/04/18 Range/Units 04:00 Calcium 9.9 (8.6-10.4) mg/dl Phosphorus 5.0 H (2.7-4.5) mg/dL Albumin 3.5 (3.2-5.2) gm/dL Pituitary panel 03/04/18 Range/Units 04:00 Sodium 138 (133-145) mmol/L Potassium 3.6 (3.3-5.1) mmol/L Chloride 97 (96-108) mmol/L Carbon Dioxide 28 (22-30) mmol/L BUN 38 H (6-20) mg/dl Creatinine 1.9 H (0.7-1.2) mg/dl Glucose 115 H (70-105) mg/dL Calcium 9.9 (8.6-10.4) mg/dl Adrenal panel 03/04/18 Range/Units 04:00 Sodium 138 (133-145) mmol/L Potassium 3.6 (3.3-5.1) mmol/L Chloride 97 (96-108) mmol/L Carbon Dioxide 28 (22-30) mmol/L BUN 38 H (6-20) mg/dl Creatinine 1.9 H (0.7-1.2) mg/dl Glucose 115 H (70-105) mg/dL Calcium 9.9 (8.6-10.4) mg/dl Total Bilirubin 0.6 (0.0-1.0) mg/dL AST 12 (0-37) U/l ALT 11 (0-40) U/l Alkaline Phosphatase 94 (39-117) U/L Total Protein 6.8 (5.9-8.4) gm/dL Albumin 3.5 (3.2-5.2) gm/dL Assessment and Plan (1) Sepsis, polymicrobial Status: Acute Current Visit: Yes (2) Sepsis affecting skin Problem details: Assessment: DFU Mixon 3 with CSSSI and uncontrolled diabetes and Necrotizing skin infection of RIGHT foot. Plan: Patient is status post INITIAL debridement in clinic and now admitted to [facility] Floor for ongoing continuity of wound care, IV antibiotics and HBOT Will be following this patient whilst he is in hospital, and for HBOT. Status: Acute Assessment and plan: Assessment: IMPROVING and responding to co-ordinated treatment. Will request Photo Machine Operator to see patient about transfer to Swing Bed Status. For continuity of care. Plan: Continue current treatment. Consult Case management for Swing Bed Status assessment. Current Visit: Yes - Time Spent With Patient Total time spent is greater than 50% in coordination of care (as documented) at patient's floor/unit and/or counseling patient: Assessment: Satisfactory progress. Ready for discharge on PO Augmentin for 15 days. OUT PATIENT HBOT. Plan discussed with Dr. Hernández. Hospitalist Physician. Plan: D/C PICC line before discharge. O K to D/C home after HBOT today. Wound care clinic Physician follow up for wound check in ONE week after discharge. 15 - 24 minutes
[2018-03-04] MEDS: amLODIPine 10 MG TABLET PO SCH (09:31)
[2018-03-04] MEDS: sitaGLIPtin 100 MG TABLET PO SCH (09:31)
[2018-03-04] MEDS: EXENATIDE 10 MCG SC SCH ×2 (09:31→17:10)
[2018-03-04] MEDS: HEPARIN 5,000 UNIT/ML VIAL SQ SCH (09:31)
[2018-03-04] MEDS: MULTIVIT,THER IRON,CA,FA & MIN 1 TABLET PO SCH (09:31)
[2018-03-04] MEDS: PIOGLITAZONE 15 MG TABLET PO SCH (09:31)
[2018-03-04] MEDS: DOCUSATE SODIUM 100 MG CAPSULE PO SCH (09:31)
[2018-03-04] MEDS: INSULIN GLARGINE, HUMAN 1 UNIT/0.01 ML SQ SCH (09:32)
--- NOTE | 2018-03-04 10:52 | Discharge Summary ---
Medical - DS: Prov Patient information: Note initiated : 03/04/18 at 10:50 am Service Date, if different from initiated Date: [] Patient: Bro Malave 52 y/o M admitted on 02/24/18 for Diabetic Foot Wound/Nonhealing Right Foot Ulcer. Chief Complaint: [] Date of admission: 02/24/18 11:57 Discharge date: 03/04/18 Primary care physician: Kay Anglin Consults: 02/23/18 16:45 Consult to Physician [CONS] Stat Comment: Consulting Provider: Milad Guajardo Reason For Exam: Physician to Consult 02/23/18 18:47 Consult to Physician [CONS] Routine Comment: Consulting Provider: Oren Corey Reason For Exam: Physician to Consult 03/03/18 09:43 Consult to Physician [CONS] Routine Comment: renal failure Consulting Provider: Brittaney Diaz Reason For Exam: Physician to Consult Discharging clinician: Delvis Hernández Medical - DS: Meds - Discharge Medications Prescriptions: amLODIPine [Norvasc] 10 mg PO DAILY #30 tab Amoxicillin/Potassium Clav [Augmentin] 875 mg PO Q12H #30 tab Pioglitazone [Actos] 15 mg PO DAILY #30 tab Active and Home Medications: Home Medications Lisinopril [Zestril] 30 mg PO DAILY 07/15/16 [History Confirmed 02/23/18 Last Taken 02/23/18 08:00] Simvastatin [Zocor] 20 mg PO DAILY 07/15/16 [History Confirmed 02/23/18 Last Taken 02/23/18 08:00] metFORMIN HCL [Fortamet] 1,000 mg PO BID 07/15/16 [History Confirmed 02/23/18 Last Taken 02/23/18 08:00] Cholecalciferol (Vitamin D3) [Vitamin D] 1,000 unit PO DAILY 02/23/18 [History Confirmed 02/23/18 Last Taken 02/23/18 08:00] Exenatide [Byetta] 10 mcg SQ BID 02/23/18 [History Confirmed 02/23/18 Last Taken 02/23/18 10:30] Hydrochlorothiazide [Oretic] 25 mg PO DAILY 02/23/18 [History Confirmed Last Taken 02/23/18 08:00] Insulin Detemir [Levemir] 44 unit SQ BID 02/23/18 [History Confirmed 02/23/18 Last Taken 02/23/18 10:30] Medical - DS: Hosp Hospital course: Mr. Malave is a 52 year old M history of poorly controlled diabetes and chronic nonhealing right foot ulcer/prior amputation of right big toe. Patient has not been using his orthotic shoe and over the last few weeks has noted increasing purulence and discharge around the foot ulcer. He has been followed up with Dr. Corey wound care. During evaluation patient underwent debridement and [facility] light of poor outpatient response to treatment and persistent cellulitis. Initial workup in the ER was essentially unremarkable. Patient was started on vancomycin and Zosyn given history of MRSA. Cultures were sent from wound care clinic during debridement. Wound care physician Dr. Corey will be following during hospitalization.x-ray lower extremity/MRI" unremarkable for acute osteomyelitis/abscess however significant for cellulitis Hospitalist service was consulted for evaluation and admission At the time of evaluation patient is accompanied with her daughter and . He was able to answer most questions. Patient has had amputation in 1999 and subsequently [address] Cormier. He has been continually followed by wound care. On the last few days he has noticed increasing discharge/purulence along with increasing size of the ulcer. He denies associated fevers shaking chills or leg redness. He denies any other joint swelling and rash headache or photophobia. He denies recent trauma but has been continually bearing weight and not using his orthotics 02/24- putrid discharge plantar aspect. Case reviewed with wound care physician Dr. Corey. Patient will be started on hyperbaric oxygen treatment per Dr. Corey. Doppler lower extremity ultrasound pending. On broad antibiotic coverage. Place PICC line for IV antibiotics. Transfer to inpatient status due to failed outpatient treatment and worsening necrotizing cellulitis. Include gram-negative and anaerobic coverage. February 25- patient undergoing hyperbaric oxygen treatments. Wound management per wound care. On IV antibiotic.wound culture gram-positive cocci.stable labs/ hemodynamics. Afebrile. No overnight events.blood sugars improving with higher doses of Lantus.. Blood sugar down from 467-194. no family at the site. No concerns expressed by nursing staff February 26-ongoing hyperbaric treatment. Possible debridement 24 hours. Wound care ongoing. Improving granulation tissue. Discussed case with wound care physician. Continue antibiotic coverage.wound culture revealed Streptococcus/ staph aureus. Sensitivities pending. Blood cultures negative. blood sugars improved to 124 on higher dose of Lantus. February 27- ongoing hyperbaric oxygen treatment. Wound debridement today by Dr. costa. Blood sugars at 124. Afebrile. No complaints of pain shortness of breath headache. No concerns expressed nursing staff. On diabetic diet. Patient will likely transfer to swing bed status in 24 hours for continued antibiotic coverage. Sensitivities pending on initial wound culture. 02/28-patient seen and examined no acute overnight events. Patient has no complaints. One managed by Dr. Corey. Patient's glucose values are reasonably controlled. The patient's creatinine is trending up. Hold lisinopril or hydrochlorothiazide today. Get a urine analysis give 1 L of fluid and monitor renal function. Patient not ready for swing bed status yet given worsening renal function. Wound culture shows staph and strep this is MSSA staph. I will discontinue vancomycin, vancomycin level was supratherapeutic for which she may have contributed to renal dysfunction. Patient will continue on Zosyn for now 03/01 Patient seen and examined no acute overnight events. Creatinine trended down slowly at 1.8. UA is negative. 7. Level was high. Patient otherwise has no acute complaints or concerns. Plan to continue antibiotics as well as hyperbarics as per wound care. Give 1 L saline additional continue to hold lisinopril and hydrochlorothiazide. 03/02 Patient seen and examined no acute overnight events. Creatinine is stable at 1.8. Blood pressure was high last night. IV hydralazine. We will start on p.o. amlodipine 10 mg once a day today. Continue to hold lisinopril hydrochlorothiazide in light of worsening renal function. Wound care management as per nephrology. Patient is on antibiotics. According to Dr. Corey he is planning to debride the wound today 03/03 Patient seen and examined no acute overnight events, creatinine worsened again to 2.0. Patient is making good amount of urine. Blood pressure was still high last night. Needs IV hydralazine. Will start on amlodipine 10 mg yesterday. Blood pressure this morning seems to be okay. Hydrochlorothiazide and lisinopril are held because of renal failure. We will recheck urinalysis urine lites and get a renal ultrasound get a nephrology consult. Plan of care reviewed with wound care patient will be having a wound debridement tomorrow and possibly discharge home's from there. 03/04 No acute complaints, patient's wound was debrided by wound physician today. Patient was cleared for discharge. Patient will be discharged on oral Augmentin for another 2 weeks. Patient microbiology does not have any MRSA growing. PICC line will be removed before discharge. The patient will hold hydrochlorothiazide lisinopril and metformin at discharge because of renal failure. He has been started on amlodipine for blood pressure management. He will follow-up with PCP and hypertension medications titrated from there. He will also follow up with nephrology for monitoring his renal failure. The patient has uncontrolled diabetes, given that we have stopped metformin and I have started the patient on pioglitazone. He will continue his home medications as before. Follow-up with PCP for titration of insulin regimen. A/P Necrotizing diabetic cellulitis-managed by wound care, MSSA and strep noted. No evidence of osteo-myelitis, patient treated with vancomycin and Zosyn while in the hospital will be discharged on oral Augmentin for another 2 weeks. Diabetes poorly controlled-poorly controlled-continue lisinopril and Byetta as an outpatient managed by primary care provider. Hold metformin in light of renal start the patient on Actos 15 mg. Further titration by PCP Hypertension BP on the higher end, started on amlodipine 10 mg once a day lisinopril and hydrochlorothiazide on hold for now. Further titration as per PCP-nephrology Hyperlipidemia continue statin, cut back the dose of Zocor to 10 mg as the patient is being prescribed amlodipine. Renal failure-acute kidney injury likely secondary to vancomycin. Creatinine is 1.9 at discharge, patient is making good amount of urine patient will follow up with nephrology as an outpatient. Discharge diagnosis: Cellulitis/ Diabetic Foot - Time Spent with Patient Total time spent providing and/or coordinating discharge services: Greater than 30 minutes Medical - DS: Exam - Constitutional Vitals: Vital Signs Temp Pulse Resp BP BP Pulse Ox 03/04/18 07:26 98.5 F 72 16 116/70 94 03/04/18 04:00 98.5 F 74 16 114/68 94 03/04/18 02:30 156/80 03/04/18 00:00 96.8 F L 80 16 176/84 93 03/03/18 20:00 97.5 F 84 16 172/86 99 03/03/18 15:58 97.4 F 70 20 152/82 99 03/03/18 12:00 97.8 F 60 16 160/84 Intake and Output 03/03/18 03/04/18 03/04/18 21:59 05:59 13:59 Intake Total 650 / 650 50 / 50 600 / 600 Output Total 1550 / 1550 1475 / 1475 Balance -900 / -900 -1425 / -1425 600 / 600 Intake: IV 50 / 50 50 / 50 Zosyn 3.375 gm In Dextrose 5% 50 / 50 50 / 50 in Water 50 ml @ 100 mls/hr IV Q6H [facility] Rx#:[id number] Oral 600 / 600 600 / 600 Output: Void Amount 1550 / 1550 1475 / 1475 Other: Meal Breakfast Percent of Meal Consumed 100% Feeding Ability Assist with Tray Set Up Weight 297 lb 8 oz Additional comments: Constitutional; Afebrile, cooperative, alert, not in distress. Eyes- No icterus, , No periorbital swelling Ears- Ext ear normal, hearing normal to conversation. Neck- Midline trachea, supple Respiratory system: Air Entry equal on both sides, No crackles or wheezing, no rhonchi. CVS- Rate rhythm regular, S1,S2 heard, no gallop, no rub. Abdomen- Soft nontender abdomen, no organomegaly, no tenderness, no guarding or rigidity, OPTICAL INSTRUMENT INSPECTOR- AOOx3, moving all extremities, no gross focal deficit noted. Medical - DS: Data Labs on day of discharge: Labs from last 24 hours 03/04/18 03/03/18 03/03/18 04:00 22:39 22:39 Sodium 138 Potassium 3.6 Chloride 97 Carbon Dioxide 28 Anion Gap 13.0 BUN 38 H Creatinine 1.9 H GFR Calculation 40 Glucose 115 H Uric Acid 6.3 Calcium 9.9 Phosphorus 5.0 H Magnesium 1.8 Total Bilirubin 0.6 Direct Bilirubin < 0.2 GGT 66 H AST 12 ALT 11 Alkaline Phosphatase 94 Lactate Dehydrogenase 173 Total Protein 6.8 Albumin 3.5 Globulin 3.3 Albumin/Globulin Ratio 1.1 Triglycerides 258 H Urine Color Straw Urine Appearance Clear Urine pH 7.0 Ur Specific [place] 1.008 Urine Protein Neg Urine Glucose (UA) >=500 A Urine Ketones Neg Urine Occult Blood Neg Urine Nitrate Neg Urine Bilirubin Neg Urine Urobilinogen Neg Ur Leukocyte Esterase Neg Urine RBC 0 Urine WBC 1 Ur Squamous Epith Cells < 1 Urine Bacteria 0 Ur Culture Indicated? No Urine Eosinophils TNP Ur Random Creatinine 40.4 U Random Total Protein 6 U [place] Prot/Creat Ratio 0.15 Ur Random Sodium 42 Medical - DS: A/P - Patient/Caregiver Discharge Instructions Activity: increase activity as tolerated, other (weight bearing as per wound care physician) Diet: Consistent Carbohydrate Additional Instructions: Please follow-up with the wound care clinic in 1 week for management of her diabetic foot wound. Please take antibiotics for 2 more weeks. Augmentin 1 tablet twice a day Keep yourself well hydrated, follow-up with nephrology in 1-2 weeks for follow- up of renal failure. Please do not take metformin, lisinopril, hydrochlorothiazide as they can make kidney function worse. Wait till you are given okay by the studio data analyst or your primary care provider before you start taking these medications again For your high blood pressure I have started you on amlodipine 10 mg once a day, your primary care provider or your studio data analyst will adjust the dosing of this medication or add another medication for blood pressure control. This medication can interact with simvastatin and a cholesterol pill that you are taking it therefore have to cut his simvastatin dose in half please only take 10 mg simvastatin at bedtime. [You were taking 20 mg at bedtime before] Follow-up with PCP in 1 week. Her diabetes has been uncontrolled, please take your medications as prescribed by her primary care provider. Please do not take metformin, I have prescribed you pioglitazone 50 mg 1 tablet once a day to control your sugar. Please make sure you follow-up with your primary care provider and have the medications titrated for optimal glucose control. Should your symptoms worsen he develop fever chest pain shortness of breath or any other acute concerning symptom please do not hesitate to go back to the emergency room for further evaluation Prescriptions: amLODIPine [Norvasc] 10 mg PO DAILY #30 tab Amoxicillin/Potassium Clav [Augmentin] 875 mg PO Q12H #30 tab Pioglitazone [Actos] 15 mg PO DAILY #30 tab Other Amb Orders: Wound Care Instructions Location: Determined By Patient - Follow up Plan Follow up with: Oren Corey MD [Physician] - Kay Anglin ARNP [Primary Care Provider] - Brittaney Diaz MD [Physician] - Disposition: Home, Self-Care Prognosis: Fair Rehab Potential: Fair I certify that the patient requires SNF services: No Overall status at discharge: patient is progressing back to baseline
[2018-03-09] MEDS ORDERED: TESTOSTERONE CYPIONATE 200 MG IM SCH (09:00)
== END 2018-03-04 17:20 | disposition home or self-care (01) | DRG 638 ==
LOC: ED 14:17 → MEDSUR 14:17
PROVIDERS: ADMIT Internal Medicine; ATTEND Internal Medicine

== ENCOUNTER 2022-09-13 16:53 | Inpatient (IN) ==
[2022-09-13] MEDS ORDERED: 0.9 % SODIUM CHLORIDE 1,000 ML IV ONE (17:05)
[2022-09-13 17:09] LABS: POC Calcium, Ionized 1.1 (1.16-1.32); POC Creatinine 1.4 (0.6-1.2); POC Potassium 3.4 (3.3-5.1)
[2022-09-13] MEDS ORDERED: IPRATROPIUM/ALBUTEROL 3 ML AMPUL.NEB NEB ONE (17:10)
[2022-09-13] MEDS ORDERED: methylPREDNISolone SOD SUCC 125 MG/2 ML VIAL IV ONE (17:10)
[2022-09-13] MEDS ORDERED: LEVOFLOXACIN 750 MG/150 ML BAG IV ONE (17:17)
[2022-09-13 18:15] LABS: Basophils # (Auto) 0.02 K/mcL (0.00-0.30); Basophils % (Auto) 0.2 % (0.0-2.0); Eosinophils # (Auto) 0 K/mcL (0.00-0.70); Eosinophils % (Auto) 0 % (0.0-7.0); Hematocrit 34.8 % (40.1-51.0); Hemoglobin 11.7 g/dL (13.7-17.5); Lymphocytes # (Auto) 0.48 K/mcL (1.50-4.80); Lymphocytes % (Auto) 5.7 % (15.5-49.0); Mean Cell Volume 84.1 fL (80.0-100.0); Mean Corpuscular HGB Conc 33.6 g/dL (31.0-36.0); Mean Platelet Volume 11.4 fL (8.8-12.5); Monocytes % (Auto) 3.6 % (1.0-12.0); Neutrophils % (Auto) 89.8 % (38.0-78.0); Platelet Count 117 K/mcL (140-440); RBC 4.14 M/mcL (4.63-6.08); Red Cell Distribution Width 14.6 % (11.5-14.5); WBC 8.4 K/mcL (4.5-11.0)
--- NOTE | 2022-09-13 19:07 | XRay Report ---
INDICATION: dyspnea TECHNIQUE: AP portable chest x-ray COMPARISON: Previous examination dated 09/12/2022 FINDINGS: Lungs:Dense consolidation involving much of the left lung. There is significant technical difference between the present examination and examination dated 09/12/2022. Infiltrates may be worse on today's chest x-ray. Findings remain consistent with severe pneumonia. No definite right lung infiltrate. Heart, vascular:No significant cardiomegaly. Pulmonary vascularity is normal. No pulmonary edema or pulmonary congestion Mediastinum, mushtaq:No mediastinal widening. No hilar mass Pleura:No pleural fluid. No pleural-based mass or calcification Skeletal:Negative. IMPRESSION: 1. Extensive left lung infiltrate consistent with pneumonia 2. Infiltrate may be slightly worse than on 09/12/2022 although this is not definite. No evidence for improvement Interpreted and Authenticated by: Cih Nur 09/13/22
--- NOTE | 2022-09-13 19:40 | Emergency Department Note ---
SOB HPI General Chief Complaint: Shortness of Breath/Dyspnea Stated Complaint: SOB Time Seen by Provider: 09/13/22 17:05 Source: EMS Mode of arrival: EMS Limitations: no limitations History of Present Illness HPI Narrative: Narrative: 57-year-old male with past medical history hypertension and as below presents with shortness of breath and cough for 1 week. Patient was seen yesterday with similar symptoms and discharged home after IV antibiotic and on p.o. antibiotic. No headache dizziness chest pain abdominal pain nausea vomiting diarrhea fever or chills. In ER BP 153/67, patient was tachycardic at 100 bpm respiratory rate 23 O2 sat was 89% on room air which improved to 92% on 3 L O2 Related Data Home Medications Medication Instructions Recorded Confirmed lisinopril 40 mg tablet 40 mg PO HS 11/02/19 06/14/22 metformin 500 mg tablet 1,000 mg PO BIDCC 11/02/19 06/14/22 montelukast 10 mg tablet 10 mg PO QDAY 08/28/20 06/14/22 simvastatin 40 mg tablet 40 mg PO QDAY 08/28/20 06/14/22 albuterol sulfate 90 mcg/actuation 2 inh inhalation Q6H PRN Pain 10/17/21 06/14/22 breath activated powder inhaler insulin aspart U-100 100 unit/mL See Rx Instructions .Route .COMPLEX 10/17/21 06/14/22 (3 mL) subcutaneous pen (Novolog Flexpen U-100 Insulin aspart) insulin degludec 100 unit/mL (3 50 unit subcut BID 10/17/21 06/14/22 mL) subcutaneous pen (Tresiba FlexTouch U-100 insulin) Tylenol 10/27/21 06/14/22 cholecalciferol (vitamin D3) 50 50 mcg PO QDAY 01/22/22 06/14/22 mcg (2,000 unit) capsule Previous Rx's Medication Instructions Recorded methocarbamol 500 mg tablet See Rx Instructions PO Q6H PRN 10/15/21 pain #30 tabs empagliflozin 10 mg tablet 10 mg PO QAM DM and protein in 10/17/21 (Jardiance) urine #30 tabs lidocaine 5 % topical patch 1 patch topical QDAY PRN pain #7 ea 10/27/21 (Lidoderm) polyethylene glycol 3350 17 17 g PO BID #238 grams 11/14/21 gram/dose oral powder (Miralax) diltiazem HCl 360 mg 360 mg PO QAM HTN and albumin in 01/22/22 capsule,extended release 24 hr the urine #90 caps Allergies Allergy/AdvReac Type Severity Reaction Status Date / Time No Known Drug Allergies Allergy Verified 09/13/22 16:56 Review of Systems ROS ROS Narrative: Narrative: All systems ED: reviewed and negative except as stated. Constitutional: Reports as per HPI PFS Narrative Patient History Narrative: Narrative: Medical/Surgical/Family History All Active Problems (Updated 09/13/22 @ 19:39 by Rony Moore MD) Pneumonia (Acute) Acute dehydration (Acute) JAVI (acute kidney injury) (Acute) Breath shortness (Acute) Pneumonia (Acute) Hypoxia (Acute) Diabetes (Chronic) Foot ulcer (Chronic) Decubitus ulcer, infected (Chronic) Non-healing ulcer of right foot (Chronic) Sepsis, polymicrobial (Chronic) Sepsis affecting skin (Chronic) Albuminuria (Chronic) Tinea pedis (Chronic) Diabetes mellitus type II, uncontrolled (Chronic) Diabetic foot ulcer (Chronic) Male hypogonadism (Chronic) Hyperlipidemia (Chronic) Metabolic syndrome X (Chronic) Obesity (Chronic) Morbid obesity (Chronic) Conjunctivitis (Chronic) Diabetic neuropathy (Chronic) Impacted cerumen (Chronic) Essential hypertension (Chronic) Acute sinusitis (Chronic) Foot callus (Chronic) Ulcer of toe (Chronic) Fatigue (Chronic) Decreased testosterone level (Chronic) Tear meniscus knee (Chronic) Laceration of foot (Chronic) Dermoid cyst (Chronic) Mild nonproliferative diabetic retinopathy (Chronic) Upper back pain (Acute) Low back pain (Acute) Grade A3 albuminuria (Acute) Acute pain of right hip (Acute) Acute pain of right hip (Acute) Hematoma (Acute) Dysuria (Acute) Morbid obesity with BMI of 40.0-44.9, adult (Acute) Contusion of right lower extremity (Acute) RUQ abdominal pain (Acute) Constipation (Acute) Diabetes mellitus with albuminuria (Acute) CKD stage G1/A3, GFR > 90 and albumin creatinine ratio >300 mg/g (Acute) Medical History Acute kidney injury Resolved with hydration Acute sinusitis Albuminuria Conjunctivitis Decreased testosterone level Decubitus ulcer, infected Dermoid cyst Diabetes Normal GFR with no proteinuria Blood pressure is well controlled as is his diabetes evidenced by hemoglobin A1c less than 7% I see no evidence of underlying renal disease We will check random albumin to creatinine ratio on a 3-month basis and if running negative we will see him back on an annual basis Diabetes mellitus type II, uncontrolled Given weight gain, DM, change in appearance (see photo ID in EMR) and history of hypogonadism, check cortisol and ACTH. If elevated, check pituitary CT for adenoma. Diabetic foot ulcer Diabetic neuropathy Essential hypertension Fatigue Foot callus Foot ulcer Hyperlipidemia On losartan and now diltiazem so watch for Rx interaction Impacted cerumen Laceration of foot Male hypogonadism Metabolic syndrome X Mild nonproliferative diabetic retinopathy Morbid obesity Non-healing ulcer of right foot Obesity Sepsis affecting skin Assessment: DFU Mixon 3 with CSSSI and uncontrolled diabetes and Necrotizing skin infection of RIGHT foot. Plan: Patient is status post INITIAL debridement in clinic and now admitted to Med Surg Floor for ongoing continuity of wound care, IV antibiotics and HBOT Will be following this patient whilst he is in hospital, and for HBOT. Sepsis, polymicrobial Tear meniscus knee Tinea pedis Ulcer of toe Surgical History History of amputation of great toe bilateral, right hallux [id number], left partial hallux 2007 Family History Other No pertinent family history Social History Smoking Status: Never smoker Exam Narrative Narrative: Narrative: General Limitations: no limitations Head Head: Present atraumatic and normocephalic Respiratory Respiratory: Present rales/crackles (left lung and mild right lower lung ) Cardiovascular Cardiovascular: Present regular rate, normal rhythm and normal heart sounds Adbominal Abdominal: Present soft and normal bowel sounds; Absent tenderness or organomegaly Neurological Neurological: Present alert and oriented X3 Course Course Course Narrative: CBC, CMP, lactic acid, UA, blood culture, COVID-19 chest x-ray were ordered. Patient was given DuoNeb, methylprednisolone 125 mg IV normal saline 1000 mL IV and levofloxacin 750 mg IV. WBC count is normal at 8.4 but he has high neutrophil count of 89.8. Lactic acid is 1.1. Chest x-ray is worse on left side. Patient will be admitted to hospital for treatment of pneumonia causing hypoxia. Case discussed with hospitalist Dr. RACHEL Vital Signs Vital signs: Vital Signs Temperature 99.6 F H 09/13/22 16:53 Pulse Rate 106 H 09/13/22 16:53 Respiratory Rate 36 H 09/13/22 16:53 Blood Pressure 153/67 09/13/22 16:53 Pulse Oximetry (%) 89 L 09/13/22 16:53 Oxygen Delivery Method 09/13/22 16:53 Oxygen Flow Rate (L/min) 3 09/13/22 16:53 Temperature 99.6 F H 09/13/22 16:53 Pulse Rate 100 H 09/13/22 19:11 Respiratory Rate 23 H 09/13/22 19:11 Blood Pressure 149/116 09/13/22 19:01 Pulse Oximetry (%) 93 09/13/22 19:11 Oxygen Delivery Method 09/13/22 16:53 Oxygen Flow Rate (L/min) 3 09/13/22 16:53 MDM MDM Narrative Medical decision making narrative: Narrative: Lab Data Result diagrams: 09/13/22 17:06 Labs: Lab Results 09/13/22 09/13/22 09/13/22 Range/Units 17:06 17:06 17:06 WBC 8.4 (4.5-11.0) K/mcL RBC 4.14 L (4.63-6.08) M/mcL Hgb 11.7 L (13.7-17.5) g/dL Hct 34.8 L (40.1-51.0) % POC Hct (41-55) MCV 84.1 (80.0-100.0) fL MCH 28.3 (26.0-34.0) pg MCHC 33.6 (31.0-36.0) g/dL RDW 14.6 H (11.5-14.5) % Plt Count 117 L (140-440) K/mcL MPV 11.4 (8.8-12.5) fL Immature Gran % (Auto) 0.7 H (0.0-0.5) % Neut % (Auto) 89.8 H (38.0-78.0) % Lymph % (Auto) 5.7 L (15.5-49.0) % [place] % (Auto) 3.6 (1.0-12.0) % Eos % (Auto) 0 (0.0-7.0) % Baso % (Auto) 0.2 (0.0-2.0) % Lymph # (Auto) 0.48 L (1.50-4.80) K/mcL [place] # (Auto) 0.30 (0.10-0.90) K/mcL Eos # (Auto) 0 (0.00-0.70) K/mcL Baso # (Auto) 0.02 (0.00-0.30) K/mcL Immature Gran # 0.06 H (0.00-0.05) K/mcl Absolute Neutrophils 7.52 (1.80-8.00) K/mcL POC VBG pH (7.32-7.42) POC VBG pCO2 at Temp (41-51) POC VBG pO2 (25-40) POC VBG HCO3 (24-28) POC VBG Total CO2 (25-29) POC Venous O2 Sat (40-70) POC VBG Base Excess (-2-2) VBG Lactic Acid (0.5-2.0) mmol/L POC Sodium (133-145) POC Potassium (3.3-5.1) POC Chloride (96-108) POC Total CO2 (22-30) POC BUN (6-20) POC Creatinine (0.6-1.2) POC Glucose (70-105) POC WB Ioniz Calcium (1.16-1.32) Troponin T < 0.01 (<0.03) ng/mL C-Reactive Protein 31.10 H (0.03-0.80) mg/dL 09/13/22 09/13/22 09/13/22 Range/Units 17:07 17:50 17:57 WBC (4.5-11.0) K/mcL RBC (4.63-6.08) M/mcL Hgb (13.7-17.5) g/dL Hct (40.1-51.0) % POC Hct 35.0 L (41-55) MCV (80.0-100.0) fL MCH (26.0-34.0) pg MCHC (31.0-36.0) g/dL RDW (11.5-14.5) % Plt Count (140-440) K/mcL MPV (8.8-12.5) fL Immature Gran % (Auto) (0.0-0.5) % Neut % (Auto) (38.0-78.0) % Lymph % (Auto) (15.5-49.0) % [place] % (Auto) (1.0-12.0) % Eos % (Auto) (0.0-7.0) % Baso % (Auto) (0.0-2.0) % Lymph # (Auto) (1.50-4.80) K/mcL [place] # (Auto) (0.10-0.90) K/mcL Eos # (Auto) (0.00-0.70) K/mcL Baso # (Auto) (0.00-0.30) K/mcL Immature Gran # (0.00-0.05) K/mcl Absolute Neutrophils (1.80-8.00) K/mcL POC VBG pH 7.47 H (7.32-7.42) POC VBG pCO2 at Temp 30.2 L (41-51) POC VBG pO2 42 H (25-40) POC VBG HCO3 21.9 L (24-28) POC VBG Total CO2 23.0 L (25-29) POC Venous O2 Sat 81.0 H (40-70) POC VBG Base Excess -2.0 (-2-2) VBG Lactic Acid 1.3 1.1 (0.5-2.0) mmol/L POC Sodium 131 L (133-145) POC Potassium 3.4 (3.3-5.1) POC Chloride 93 L (96-108) POC Total CO2 20.0 L (22-30) POC BUN 20 (6-20) POC Creatinine 1.4 H (0.6-1.2) POC Glucose 163 H (70-105) POC WB Ioniz Calcium 1.10 L (1.16-1.32) Troponin T (<0.03) ng/mL C-Reactive Protein (0.03-0.80) mg/dL Discharge Plan Patient/Caregiver Discharge Instructions Pt seen by QUALITY ASSURANCE ENGINEER/PA only: No Clinical Impression: Breath shortness, Pneumonia, Hypoxia Patient Disposition: Xfer As Inpt ([facility]) Condition: Fair Follow up with: Jackie Wong PA-C [Primary Care Provider] - Prescriptions: No Action insulin aspart U-100 [Novolog Flexpen U-100 Insulin] 100 unit/mL (3 mL) insulin pen See Rx Instructions .ROUTE .COMPLEX Rx Instructions: 18 units breakfast; 15 units lunch ; 30 dinner; albuterol sulfate 90 mcg/actuation aerosol powdr breath activated 2 inh inhalation Q6H PRN (Reason: Pain) Tresiba FlexTouch U-100 100 unit/mL (3 mL) insulin pen 50 unit subcut BID Jardiance 10 mg tablet 10 mg PO QAM Qty: 30 11RF cholecalciferol (vitamin D3) 50 mcg (2,000 unit) capsule 50 mcg PO QDAY diltiazem HCl 360 mg capsule,extended release 24hr 360 mg PO QAM Qty: 90 3RF polyethylene glycol 3350 [Miralax] 17 gram/dose powder 17 g PO BID Qty: 238 0RF methocarbamol 500 mg tablet See Rx Instructions PO Q6H PRN (Reason: pain) Qty: 30 0RF Rx Instructions: 1-2 tabs PO Q6H PRN pain. Caution: may cause sedation; do not combine with other sedatives. metformin 500 MG tablet 1,000 mg PO BIDCC lisinopril 40 MG tablet 40 mg PO HS simvastatin 40 mg Tablet 40 mg PO QDAY montelukast 10 mg Tablet 10 mg PO QDAY Tylenol lidocaine [Lidoderm] 5 % adhesive patch,medicated 1 patch topical QDAY PRN (Reason: pain) Qty: 7 0RF Rx Instructions: leave on most painful area for up to 12 hrs
[2022-09-13 20:02] LABS: Appearance,Urine CLOUDY (Clear); Bilirubin,Urine Negative (Negative); Color,Urine Yellow; Culture Indicated,Urine No; Glucose,Urine (UA) >=500 mg/dL (Negative); Ketones,Urine 20 mg/dL (Negative); Leukocyte Esterase,Urine Negative /uL (Negative); Mucus,Urine FEW /hpf; Nitrate,Urine Negative (Negative); Protein,Urine >=500 mg/dL (Negative); Specific Gravity,Urine 1.027 (1.000-1.035); Urine Blood >=1.0 mg/dL (Negative); Urine Hyaline Cast 1 /lph (0-2); Urine RBC 6 /hpf (0-3); Urine Squamous Epithelial Cell 0 /hpf (0-4); Urine WBC 6 /hpf (0-4); Urobilinogen,Urine Negative
--- NOTE | 2022-09-13 20:02 | Internal Med History&Physical ---
HPI History of Present Illness Patient information: Note initiated : 09/13/22 at 7:59 pm Service Date, if different from initiated Date: [] Patient: Bro Malave a 57 y/o M admitted on for Shortness of breath. Chief Complaint: [shortness of breath, general body weakness] Chief complaint: shortness of breath, general body weakness History of present illness: Mr. Malave is a 57 year old M history of type 2 diabetes mellitus, essential hypertension, mixed dyslipidemia, morbid obesity, presenting with 5-day history of shortness of breath and general body weakness. He is complaining of shortness of breath, general body weakness, nonproductive cough, respiratory wheezings, fever, chills, diaphoresis, for the past 5 days. His symptoms got worse yesterday, so he presented to our ED where he was being diagnosed with a left-sided pneumonia. He was being discharged home with prescriptions of Augmentin. He took the Augmentin as prescribed, but today his general body weakness got worse to the point that his leg just gave up and he could not walk and he fell. As a result, he returned back to our ED for reevaluations and treatments. Vital signs significant for tachycardia and tachypnea, and his oxygen was desaturating in the upper 80s on room air so the ER physician started him on nasal cannula oxygen's. Labs significant for lack of leukocytosis with WBC 8.4. Serum lactic acid 1.1. Sariah from yesterday was negative. Chest x- ray showing worsening left-sided infiltrates relative to the x-ray from yesterday. Admission request was called for sepsis associated with pneumonia failing outpatient oral antibiotic therapy. Constitutional Constitutional: Present chills, excessive sweating, fever(s) and weakness; Absent fatigue EENT Eyes: Absent blurry vision, change in vision, loss of vision or other visual disturbances Ears: Absent decreased hearing or tinnitus Nose, mouth and throat: Absent abnormal hearing, dry mouth, headache(s), nasal congestion or sore throat Cardiovascular Cardiovascular: Absent chest pain, chest pain at rest, edema, irregular heart rhythm or palpatations Respiratory Respiratory: Present cough, dyspnea and wheezing Gastrointestinal Gastrointestinal: Absent abdominal pain, constipation, diarrhea, nausea or vomiting Musculoskeletal Musculoskeletal: Absent back pain, deformity, limited range of motion, muscle cramps, muscle weakness or numbness Integumentary Integumentary: Absent lesions, rash or wounds Neurological Neurological: Absent focal weakness, headache(s) or numbness Psychiatric Psychiatric: Absent anxiety, depression or hallucinations PFSH PFSH All Active Problems (Updated 09/13/22 @ 20:07 by Wei Layton MD) T2DM (type 2 diabetes mellitus) (Acute) Stage 1 acute kidney injury (Acute) Acute respiratory failure with hypoxia (Acute) Clinical sepsis (Acute) Pneumonia (Acute) Acute dehydration (Acute) JAVI (acute kidney injury) (Acute) Breath shortness (Acute) Pneumonia (Acute) Hypoxia (Acute) Diabetes (Chronic) Foot ulcer (Chronic) Decubitus ulcer, infected (Chronic) Non-healing ulcer of right foot (Chronic) Sepsis, polymicrobial (Chronic) Sepsis affecting skin (Chronic) Albuminuria (Chronic) Tinea pedis (Chronic) Diabetes mellitus type II, uncontrolled (Chronic) Diabetic foot ulcer (Chronic) Male hypogonadism (Chronic) Hyperlipidemia (Chronic) Metabolic syndrome X (Chronic) Obesity (Chronic) Morbid obesity (Chronic) Conjunctivitis (Chronic) Diabetic neuropathy (Chronic) Impacted cerumen (Chronic) Essential hypertension (Chronic) Acute sinusitis (Chronic) Foot callus (Chronic) Ulcer of toe (Chronic) Fatigue (Chronic) Decreased testosterone level (Chronic) Tear meniscus knee (Chronic) Laceration of foot (Chronic) Dermoid cyst (Chronic) Mild nonproliferative diabetic retinopathy (Chronic) Upper back pain (Acute) Low back pain (Acute) Grade A3 albuminuria (Acute) Acute pain of right hip (Acute) Acute pain of right hip (Acute) Hematoma (Acute) Dysuria (Acute) Morbid obesity with BMI of 40.0-44.9, adult (Acute) Contusion of right lower extremity (Acute) RUQ abdominal pain (Acute) Constipation (Acute) Diabetes mellitus with albuminuria (Acute) CKD stage G1/A3, GFR > 90 and albumin creatinine ratio >300 mg/g (Acute) Medical History Acute kidney injury Resolved with hydration Acute sinusitis Albuminuria Conjunctivitis Decreased testosterone level Decubitus ulcer, infected Dermoid cyst Diabetes Normal GFR with no proteinuria Blood pressure is well controlled as is his diabetes evidenced by hemoglobin A1c less than 7% I see no evidence of underlying renal disease We will check random albumin to creatinine ratio on a 3-month basis and if running negative we will see him back on an annual basis Diabetes mellitus type II, uncontrolled Given weight gain, DM, change in appearance (see photo ID in EMR) and history of hypogonadism, check cortisol and ACTH. If elevated, check pituitary CT for adenoma. Diabetic foot ulcer Diabetic neuropathy Essential hypertension Fatigue Foot callus Foot ulcer Hyperlipidemia On losartan and now diltiazem so watch for Rx interaction Impacted cerumen Laceration of foot Male hypogonadism Metabolic syndrome X Mild nonproliferative diabetic retinopathy Morbid obesity Non-healing ulcer of right foot Obesity Sepsis affecting skin Assessment: DFU Mixon 3 with CSSSI and uncontrolled diabetes and Necrotizing skin infection of RIGHT foot. Plan: Patient is status post INITIAL debridement in clinic and now admitted to Med Surg Floor for ongoing continuity of wound care, IV antibiotics and HBOT Will be following this patient whilst he is in hospital, and for HBOT. Sepsis, polymicrobial Tear meniscus knee Tinea pedis Ulcer of toe Surgical History History of amputation of great toe bilateral, right hallux [id number], left partial hallux 2007 Family History Other No pertinent family history Social History smoking status: Never smoker MEDS/ALLERGIES Home Medications and Allergies Home Medications Medication Instructions Recorded Confirmed Type lisinopril 40 mg tablet 40 mg PO HS 11/02/19 06/14/22 History metformin 500 mg tablet 1,000 mg PO BIDCC 11/02/19 06/14/22 History montelukast 10 mg tablet 10 mg PO QDAY 08/28/20 06/14/22 History simvastatin 40 mg tablet 40 mg PO QDAY 08/28/20 06/14/22 History methocarbamol 500 mg tablet See Rx Instructions PO Q6H PRN 10/15/21 06/14/22 Rx pain #30 tabs albuterol sulfate 90 mcg/actuation 2 inh inhalation Q6H PRN Pain 10/17/21 06/14/22 History breath activated powder inhaler empagliflozin 10 mg tablet 10 mg PO QAM DM and protein in 10/17/21 06/14/22 Rx (Jardiance) urine #30 tabs insulin aspart U-100 100 unit/mL See Rx Instructions .Route .COMPLEX 10/17/21 06/14/22 History (3 mL) subcutaneous pen (Novolog Flexpen U-100 Insulin aspart) insulin degludec 100 unit/mL (3 50 unit subcut BID 10/17/21 06/14/22 History mL) subcutaneous pen (Tresiba FlexTouch U-100 insulin) Tylenol 10/27/21 06/14/22 History lidocaine 5 % topical patch 1 patch topical QDAY PRN pain #7 ea 10/27/21 06/14/22 Rx (Lidoderm) polyethylene glycol 3350 17 17 g PO BID #238 grams 11/14/21 06/14/22 Rx gram/dose oral powder (Miralax) cholecalciferol (vitamin D3) 50 50 mcg PO QDAY 01/22/22 06/14/22 History mcg (2,000 unit) capsule diltiazem HCl 360 mg 360 mg PO QAM HTN and albumin in 01/22/22 06/14/22 Rx capsule,extended release 24 hr the urine #90 caps Allergies Allergy/AdvReac Type Severity Reaction Status Date / Time No Known Drug Allergies Allergy Verified 09/13/22 16:56 EXAM Constitutional Vitals: Temp Pulse Resp BP Pulse Ox O2 Del Method O2 Flow Rate 37.6 C H 100 H 22 149/68 93 3 09/13/22 16:53 09/13/22 19:31 09/13/22 19:31 09/13/22 19:31 09/13/22 19:31 09/13/22 16:53 09/13/22 16:53 General appearance: cooperative, mild distress and morbidly obese Head Head exam: Present atraumatic and normocephalic Eye Eye exam: Present EOMI and PERRL ENT ENT exam: Present mucous membranes moist, normal exam and normal external ear exam Additional comments: Nasal cannula in place Neck Neck exam: Present normal inspection; Absent lymphadenopathy, tenderness or thyromegaly Respiratory Respiratory exam: Present decreased breath sounds; Absent accessory muscle use, respiratory distress or wheezes Cardiovascular Cardiovascular exam: Present tachycardia; Absent JVD GI/Abdominal GI/Abdominal exam: Present normal bowel sounds and soft; Absent organomegaly or tenderness Rectal Rectal exam: Present deferred Extremities Exam Extremities exam: Present full ROM and normal capillary refill; Absent normal inspection or tenderness Additional comments: Bilateral great toes surgically amputated Neurological Exam Neurological exam: Present alert, CN II-XII intact and oriented X3; Absent motor sensory deficit Psychiatric Psychiatric exam: Present normal affect and normal mood; Absent anxious or depressed Skin Skin exam: Present dry and intact DATA Data Completed and Pending Labs: Labs from last 24 hours 09/13/22 09/13/22 09/13/22 19:26 17:57 17:50 WBC RBC Hgb Hct POC Hct MCV MCH MCHC RDW Plt Count MPV Immature Gran % (Auto) Neut % (Auto) Lymph % (Auto) Cass % (Auto) Eos % (Auto) Baso % (Auto) Lymph # (Auto) Cass # (Auto) Eos # (Auto) Baso # (Auto) Immature Gran # Absolute Neutrophils POC VBG pH 7.47 H POC VBG pCO2 at Temp 30.2 L POC VBG pO2 42 H POC VBG HCO3 21.9 L POC VBG Total CO2 23.0 L POC Venous O2 Sat 81.0 H POC VBG Base Excess -2.0 VBG Lactic Acid 1.1 1.3 POC Sodium POC Potassium POC Chloride POC Total CO2 POC BUN POC Creatinine POC Glucose POC WB Ioniz Calcium Troponin T C-Reactive Protein Urine Color Pending Urine Appearance Pending Urine pH Pending Ur Specific [place] Pending Urine Protein Pending Urine Glucose (UA) Pending Urine Ketones Pending Urine Occult Blood Pending Urine Nitrate Pending Urine Bilirubin Pending Urine Urobilinogen Pending Ur Leukocyte Esterase Pending 09/13/22 09/13/22 09/13/22 17:07 17:06 17:06 WBC RBC Hgb Hct POC Hct 35.0 L MCV MCH MCHC RDW Plt Count MPV Immature Gran % (Auto) Neut % (Auto) Lymph % (Auto) Cass % (Auto) Eos % (Auto) Baso % (Auto) Lymph # (Auto) Cass # (Auto) Eos # (Auto) Baso # (Auto) Immature Gran # Absolute Neutrophils POC VBG pH POC VBG pCO2 at Temp POC VBG pO2 POC VBG HCO3 POC VBG Total CO2 POC Venous O2 Sat POC VBG Base Excess VBG Lactic Acid POC Sodium 131 L POC Potassium 3.4 POC Chloride 93 L POC Total CO2 20.0 L POC BUN 20 POC Creatinine 1.4 H POC Glucose 163 H POC WB Ioniz Calcium 1.10 L Troponin T < 0.01 C-Reactive Protein 31.10 H Urine Color Urine Appearance Urine pH Ur Specific [place] Urine Protein Urine Glucose (UA) Urine Ketones Urine Occult Blood Urine Nitrate Urine Bilirubin Urine Urobilinogen Ur Leukocyte Esterase 09/13/22 17:06 WBC 8.4 RBC 4.14 L Hgb 11.7 L Hct 34.8 L POC Hct MCV 84.1 MCH 28.3 MCHC 33.6 RDW 14.6 H Plt Count 117 L MPV 11.4 Immature Gran % (Auto) 0.7 H Neut % (Auto) 89.8 H Lymph % (Auto) 5.7 L Cass % (Auto) 3.6 Eos % (Auto) 0 Baso % (Auto) 0.2 Lymph # (Auto) 0.48 L Cass # (Auto) 0.30 Eos # (Auto) 0 Baso # (Auto) 0.02 Immature Gran # 0.06 H Absolute Neutrophils 7.52 POC VBG pH POC VBG pCO2 at Temp POC VBG pO2 POC VBG HCO3 POC VBG Total CO2 POC Venous O2 Sat POC VBG Base Excess VBG Lactic Acid POC Sodium POC Potassium POC Chloride POC Total CO2 POC BUN POC Creatinine POC Glucose POC WB Ioniz Calcium Troponin T C-Reactive Protein Urine Color Urine Appearance Urine pH Ur Specific [place] Urine Protein Urine Glucose (UA) Urine Ketones Urine Occult Blood Urine Nitrate Urine Bilirubin Urine Urobilinogen Ur Leukocyte Esterase A/P Assessment and plan (1) Pneumonia: Status: Acute (2) Clinical sepsis: Status: Acute (3) Acute respiratory failure with hypoxia: Status: Acute (4) Morbid obesity: Status: Chronic (5) Stage 1 acute kidney injury: Status: Acute (6) Hyperlipidemia: Status: Chronic Comment: On losartan and now diltiazem so watch for Rx interaction (7) Essential hypertension: Status: Chronic (8) T2DM (type 2 diabetes mellitus): Status: Acute Narrative A/P Narrative: Assessment and Plans: 1. Pneumonia, failed outpatient oral antibiotics therapy with associated acute respiratory failure with hypoxia and clinical sepsis: Inpatient med surg [place] [facility] PCR Supplemental oxygne therapy Serial lactic acid Procalcitonin Blood culture cbc w/ auto diff in the morning to trend WBC s/p IV fluid bolus given in the ED, to be followed by NS@100cc/hr Rocephin Zithromax Physical therapy 2. T2DM: HgA1c Hold oral hypoglycemics Lantus 50 unit BID Meal time insulin TID AC plus Insulin Lispro SSI AC HS Accu Check AC HS Hypoglycemia protocol Diabetic diet 3. Stage 1 acute kidney injury: Avoid nephrotoxic agents; holding Lisinopril s/p IV fluid bolus given in the ED, to be followed by NS@100cc/hr CMP in the morning to trend kidney functions 4. Essential hypertension: Blood pressure currently slightly elevated Diltiazem Holding Lisinopril because of acute kidney injury Hydralazine 10mg IV q4-6hr PRN SBP>=180 and/or DBP>=110mmHg 5. Dyslipidemia: Continue statin therapy 6. 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
[2022-09-13] MEDS ORDERED: hydrALAZINE 20 MG/ML VIAL IV PRN (21:39)
[2022-09-13] MEDS ORDERED: ONDANSETRON 4 MG/2 ML VIAL IV PRN (21:39)
[2022-09-13] MEDS ORDERED: cefTRIAXone 1 GM in DEXTROSE 5% IN WATER 50 ML IV SCH (21:39)
[2022-09-13] MEDS ORDERED: DEXTROSE 50% 50 ML VIAL IV PRN (21:39)
[2022-09-13] MEDS ORDERED: IPRATROPIUM/ALBUTEROL 3 ML AMPUL.NEB NEB PRN (21:39)
[2022-09-13] MEDS ORDERED: IBUPROFEN 600 MG TABLET PO PRN (21:39)
[2022-09-13] MEDS ORDERED: DEXTROSE 31 GM ORAL.SUSP PO PRN (21:39)
[2022-09-13] MEDS: DOCUSATE SODIUM 100 MG CAPSULE PO SCH (21:52)
[2022-09-13] MEDS: SENNOSIDES 1 TABLET PO SCH (21:52)
[2022-09-13] MEDS: cefTRIAXone 1 GM VIAL IV SCH (22:16)
[2022-09-13] MEDS: HEPARIN 5,000 UNIT/ML VIAL SQ SCH (22:17)
[2022-09-13] MEDS: ACETAMINOPHEN 325 MG TABLET PO PRN (22:17)
[2022-09-13] MEDS: INSULIN LISPRO 1 UNIT/0.01 ML UNIT SQ SCH (22:18)
[2022-09-13] MEDS: INSULIN GLARGINE, HUMAN 1 UNIT/0.01 ML SQ SCH (22:18)
[2022-09-13] MEDS: 0.9 % SODIUM CHLORIDE 10 ML SYRINGE IV SCH (22:18)
[2022-09-13] MEDS: 0.9 % SODIUM CHLORIDE 1,000 ML IV SCH (22:22)
[2022-09-13 22:46] LABS: Hemoglobin A1C 6.3 % Hgb (4.0-6.0)
[2022-09-13] MEDS: AZITHROMYCIN 500 MG in DEXTROSE 5% IN WATER 250 ML IV SCH (23:47)
[2022-09-13] MEDS: guaiFENesin/DEXTROMETHORPHAN ORAL SOL PO PRN (23:47)
[2022-09-14] MEDS: 0.9 % SODIUM CHLORIDE 10 ML SYRINGE IV SCH ×3 (05:25→20:07)
[2022-09-14 07:13] LABS: Basophils # (Auto) 0.01 K/mcL (0.00-0.30); Basophils % (Auto) 0.2 % (0.0-2.0); Eosinophils # (Auto) 0 K/mcL (0.00-0.70); Eosinophils % (Auto) 0 % (0.0-7.0); Hematocrit 33.9 % (40.1-51.0); Hemoglobin 10.8 g/dL (13.7-17.5); Lymphocytes # (Auto) 0.34 K/mcL (1.50-4.80); Lymphocytes % (Auto) 5.3 % (15.5-49.0); Mean Cell Volume 88.1 fL (80.0-100.0); Mean Corpuscular HGB Conc 31.9 g/dL (31.0-36.0); Mean Platelet Volume 10.7 fL (8.8-12.5); Monocytes # (Auto) 0.12 K/mcL (0.10-0.90); Monocytes % (Auto) 1.9 % (1.0-12.0); Neutrophils % (Auto) 92.1 % (38.0-78.0); Platelet Count 102 K/mcL (140-440); RBC 3.85 M/mcL (4.63-6.08); Red Cell Distribution Width 14.5 % (11.5-14.5); WBC 6.4 K/mcL (4.5-11.0)
[2022-09-14 07:43] LABS: ALT/SGPT 20 U/L (<40); AST/SGOT 40 U/L (<40); Albumin 2.5 gm/dL (3.2-5.2); Albumin/Globulin Ratio 0.6 (1.0-2.3); Alkaline Phosphatase 126 U/L (39-117); Bilirubin,Total 0.7 mg/dL (0.1-1.0); Blood Urea Nitrogen 20 mg/dL (6-20); Calcium 8.3 mg/dL (8.6-10.4); Carbon Dioxide 16 mmol/L (22-30); Chloride 95 mmol/L (96-108); Globulin 3.9 gm/dL (2.2-3.7); Glomerular Filtration Rate 74; Glucose 301 mg/dL (70-105)
[2022-09-14] MEDS: 0.9 % SODIUM CHLORIDE 1,000 ML IV SCH ×4 (07:48→20:07)
[2022-09-14] MEDS: DOCUSATE SODIUM 100 MG CAPSULE PO SCH ×2 (08:17→20:05)
[2022-09-14] MEDS: HEPARIN 5,000 UNIT/ML VIAL SQ SCH ×2 (08:18→20:05)
[2022-09-14] MEDS: INSULIN LISPRO 1 UNIT/0.01 ML UNIT SQ SCH ×6 (08:18→20:06)
[2022-09-14] MEDS: cefTRIAXone 1 GM VIAL IV SCH (08:18)
[2022-09-14] MEDS: INSULIN GLARGINE, HUMAN 1 UNIT/0.01 ML SQ SCH ×2 (08:18→20:05)
[2022-09-14] MEDS ORDERED: LIDOCAINE PATCH TOPICAL PRN (08:57)
[2022-09-14] MEDS ORDERED: NON FORMULARY MEDICATION 1 DOSE MISCELL (Insulin Aspart U-100 [Novolog Flexpen U-100 Insul SCH (09:00)
[2022-09-14] MEDS ORDERED: ALBUTEROL SULFATE 200 PUFF INHALER INH PRN (09:06)
[2022-09-14] MEDS: VITAMIN D3 25 MCG TABLET PO SCH (09:20)
[2022-09-14] MEDS: SIMVASTATIN 40 MG TABLET PO SCH (09:20)
[2022-09-14] MEDS: AZITHROMYCIN 500 MG in DEXTROSE 5% IN WATER 250 ML IV SCH (10:53)
--- NOTE | 2022-09-14 13:11 | Internal Med Progress Note ---
SUBJECTIVE Subjective Patient information: Note initiated : 09/14/22 at 1:06 pm Service Date, if different from initiated Date: [] Patient: Bro Malave a 57 y/o M admitted on 09/13/22 for Shortness of breath. Chief Complaint: [] Interval history: Mr. Malave is a 57 year old M history of type 2 diabetes mellitus, essential hypertension, mixed dyslipidemia, morbid obesity, presenting with 5-day history of shortness of breath and general body weakness. He is complaining of shortness of breath, general body weakness, nonproductive cough, respiratory wheezings, fever, chills, diaphoresis, for the past 5 days. His symptoms got worse yesterday, so he presented to our ED where he was being diagnosed with a left-sided pneumonia. He was being discharged home with prescriptions of Augmentin. He took the Augmentin as prescribed, but today his general body weakness got worse to the point that his leg just gave up and he could not walk and he fell. As a result, he returned back to our ED for reevaluations and treatments. Vital signs significant for tachycardia and tachypnea, and his oxygen was desaturating in the upper 80s on room air so the ER physician started him on nasal cannula oxygen's. Labs significant for lack of leukocytosis with WBC 8.4. Serum lactic acid 1.1. Sariah from yesterday was negative. Chest x- ray showing worsening left-sided infiltrates relative to the x-ray from yesterday. Admission request was called for sepsis associated with pneumonia failing outpatient oral antibiotic therapy. 09/14: Afebrile overnight. On 2L/min oxygen via nasal cannula. [place] pending. Blood cultures no growth to date. Fasting glucose 286. Patient is complaining of improving degree of shortness of breath. He is complain of general body weakness. He is complaining of diaphoresis. He is coming of nonproductive cough and respiratory wheezings. Continue IV fluid with empiric antibiotics Rocephin and azithromycin while waiting for culture results. Continue to monitor for [place] result. Pending physical therapy evaluation and treatment for placement planning. Constitutional Vitals: Vital Signs Temp Pulse Resp BP Pulse Ox O2 Del Method O2 Flow Rate 36.5 C 85 28 H 135/70 93 2 09/14/22 10:51 09/14/22 10:51 09/14/22 10:51 09/14/22 10:51 09/14/22 10:51 09/14/22 10:51 09/14/22 10:51 Period Temp Pulse Resp BP Sys/Cruz Pulse Ox O2 Del Method O2 Flow Rate Last 24 Hr 36.2 C-37.6 C 79-107 12-40 127-160/59-116 89-97 Nasal Cannula- Nasal Cannula 2-3 Intake and Output 09/13/22 09/14/22 09/14/22 21:59 05:59 13:59 Intake Total 1591 362 8168 Output Total 800 625 Balance 1150 -250 1225 Weight 156.178 kg Intake & Output: Intake & Output 09/13/22 09/14/22 09/14/22 21:59 05:59 13:59 Intake Total 3117 928 1532 Output Total 800 625 Balance 1150 -250 1225 Weight 156.178 kg Intake: IV 7692 523 1173 Sodium Chloride 0.9% 1,000 ml @ 1000 1000 100 mls/hr IV .Q10H HELEN Rx#: [id number] Zithromax 500 mg In Dextrose 5% 250 250 in Water 250 ml @ 250 mls/hr IV Q24H HELEN Rx#:[id number] Oral 300 600 Output: Urine Catheter Amount 625 Void Amount 800 Other: Meal Breakfast Percent of Meal Consumed 25% Feeding Ability Assist with Tray Set Up Urine Color Dark Yellow Dark Yellow Head Head exam: Present atraumatic and normal inspection Eye Eye exam: Present normal appearance ENT ENT exam: Present mucous membranes moist, normal exam and normal external ear exam Additional comments: Nasal cannula in place Neck Neck exam: Present normal inspection Respiratory Respiratory exam: Present decreased breath sounds Cardiovascular Cardiovascular exam: Present normal rate and rhythm GI/Abdominal GI/Abdominal exam: Present normal bowel sounds Back Exam Back exam: Present normal inspection Neurological Exam Neurological exam: Present alert and oriented X3 Skin Skin exam: Present intact and warm OBJ DATA Labs CBC & Chem 7: 09/14/22 06:04 09/14/22 06:04 Labs: Abnormal Lab Results 09/14/22 09/14/22 09/13/22 06:04 06:04 19:26 RBC 3.85 L Hgb 10.8 L Hct 33.9 L POC Hct RDW Plt Count 102 L Immature Gran % (Auto) Neut % (Auto) 92.1 H Lymph % (Auto) 5.3 L Lymph # (Auto) 0.34 L Immature Gran # POC VBG pH POC VBG pCO2 at Temp POC VBG pO2 POC VBG HCO3 POC VBG Total CO2 POC Venous O2 Sat POC Sodium POC Chloride Chloride 95 L Carbon Dioxide 16 L POC Total CO2 Anion Gap 22.0 H POC Creatinine Glucose 301 H POC Glucose Hemoglobin A1c Calcium 8.3 L POC WB Ioniz Calcium AST 40 H Alkaline Phosphatase 126 H C-Reactive Protein Albumin 2.5 L Globulin 3.9 H Albumin/Globulin Ratio 0.6 L Procalcitonin Urine Appearance Cloudy A Urine Protein >=500 A Urine Glucose (UA) >=500 A Urine Ketones 20 A Urine Occult Blood >=1.0 A Urine RBC 6 H Urine WBC 6 H Urine Mucus Few A 09/13/22 09/13/22 09/13/22 17:57 17:07 17:07 RBC Hgb Hct POC Hct RDW Plt Count Immature Gran % (Auto) Neut % (Auto) Lymph % (Auto) Lymph # (Auto) Immature Gran # POC VBG pH 7.47 H POC VBG pCO2 at Temp 30.2 L POC VBG pO2 42 H POC VBG HCO3 21.9 L POC VBG Total CO2 23.0 L POC Venous O2 Sat 81.0 H POC Sodium POC Chloride Chloride Carbon Dioxide POC Total CO2 Anion Gap POC Creatinine Glucose POC Glucose Hemoglobin A1c 6.3 H Calcium POC WB Ioniz Calcium AST Alkaline Phosphatase C-Reactive Protein Albumin Globulin Albumin/Globulin Ratio Procalcitonin 5.79 H Urine Appearance Urine Protein Urine Glucose (UA) Urine Ketones Urine Occult Blood Urine RBC Urine WBC Urine Mucus 09/13/22 09/13/22 09/13/22 17:07 17:06 17:06 RBC 4.14 L Hgb 11.7 L Hct 34.8 L POC Hct 35.0 L RDW 14.6 H Plt Count 117 L Immature Gran % (Auto) 0.7 H Neut % (Auto) 89.8 H Lymph % (Auto) 5.7 L Lymph # (Auto) 0.48 L Immature Gran # 0.06 H POC VBG pH POC VBG pCO2 at Temp POC VBG pO2 POC VBG HCO3 POC VBG Total CO2 POC Venous O2 Sat POC Sodium 131 L POC Chloride 93 L Chloride Carbon Dioxide POC Total CO2 20.0 L Anion Gap POC Creatinine 1.4 H Glucose POC Glucose 163 H Hemoglobin A1c Calcium POC WB Ioniz Calcium 1.10 L AST Alkaline Phosphatase C-Reactive Protein 31.10 H Albumin Globulin Albumin/Globulin Ratio Procalcitonin Urine Appearance Urine Protein Urine Glucose (UA) Urine Ketones Urine Occult Blood Urine RBC Urine WBC Urine Mucus Meds: Medications Acetaminophen (Acetaminophen 325 Mg Tablet) 650 mg PO Q6HP PRN; Protocol PRN Reason: Per Pain Protocol/Fever > 101 Last Admin: 09/13/22 22:17 Dose: 650 mg Albuterol Sulfate (Albuterol Sulfate 200 Puff Inhaler) 2 puff INH DAILYP PRN PRN Reason: Shortness Of Breath Albuterol/Ipratropium (Ipratropium/Albuterol 3 Ml Ampul.Neb) 3 ml NEB Q4HRT PRN PRN Reason: Wheezing Ceftriaxone Sodium (Ceftriaxone 1 Gm Vial) 1 gm IV DAILY [facility] Last Admin: 09/14/22 08:18 Dose: 1 gm Dextrose (Dextrose 50% 50 Ml Vial) 0 ml IV UD PRN PRN Reason: Per Sliding Scale Diagnostic Test (Pha) (Accu-Chek 1 Each Strip) 1 each FS ACHS [facility] Last Admin: 09/14/22 11:22 Dose: 1 each Docusate Sodium (Docusate Sodium 100 Mg Capsule) 100 mg PO BID [facility] Last Admin: 09/14/22 08:17 Dose: 100 mg Glucose (Dextrose 31 Gm Oral.Susp) 15 gm PO PRN PRN PRN Reason: Hypoglycemia Guaifenesin (Guaifenesin/Dextromethorphan Oral Ingrid) 10 ml PO Q4HP PRN PRN Reason: Cough Last Admin: 09/13/22 23:47 Dose: 10 ml Heparin Sodium (Porcine) (Heparin 5,000 Unit/Ml Vial) 5,000 unit SQ Q12 [facility] Last Admin: 09/14/22 08:18 Dose: 5,000 unit Hydralazine HCl (Hydralazine 20 Mg/Ml Vial) 10 mg IV Q4-6HP PRN PRN Reason: Hypertension Sodium Chloride (Sodium Chloride 0.9%) 1,000 mls @ 100 mls/hr IV .Q10H [facility] Last Admin: 09/14/22 09:20 Dose: 100 mls/hr Azithromycin 500 mg/ Dextrose 250 mls @ 250 mls/hr IV Q24H [facility]; Protocol Stop: 09/15/22 22:38 Last Infusion: 09/14/22 12:23 Dose: Infused Ibuprofen (Ibuprofen 600 Mg Tablet) 600 mg PO QIDP PRN; Protocol PRN Reason: Per Pain Protocol/Fever > 101 Insulin Glargine (Insulin Glargine, Human 1 Unit/0.01 Ml) 50 unit SQ BID [facility] Last Admin: 09/14/22 08:18 Dose: 50 units Insulin Human Lispro (Insulin Lispro 1 Unit/0.01 Ml Unit) 0 unit SQ [facility]; Protocol Last Admin: 09/14/22 11:30 Dose: 6 units Insulin Human Lispro (Insulin Lispro 1 Unit/0.01 Ml Unit) [facility] Insulin Human Lispro (Insulin Lispro 1 Unit/0.01 Ml Unit) 15 unit SQ DAILY@1200 [facility] Last Admin: 09/14/22 11:29 Dose: 15 units Insulin Human Lispro (Insulin Lispro 1 Unit/0.01 Ml Unit) 30 unit SQ QPMCC [facility] Lidocaine (Lidocaine Patch) 1 patch TOPICAL DAILYP PRN PRN Reason: Pain Ondansetron HCl (Ondansetron 4 Mg/2 Ml Vial) 4 mg IV Q6HP PRN PRN Reason: Nausea And Vomiting Polyethylene Glycol (Polyethylene Glycol 3350 17 Gm Packet) 17 gm PO BID [facility] Senna (Sennosides 1 Tablet) 2 tab PO HS [facility] Last Admin: 09/13/22 21:52 Dose: Not Given Simvastatin (Simvastatin 40 Mg Tablet) 40 mg PO QDAY [facility] Last Admin: 09/14/22 09:20 Dose: 40 mg Sodium Chloride (0.9 % Sodium Chloride 10 Ml Syringe) 10 ml IV Q8 [facility] Last Admin: 09/14/22 05:25 Dose: Not Given Vitamin D (Vitamin D3 25 Mcg Tablet) 50 mcg PO DAILY [facility] Last Admin: 09/14/22 09:20 Dose: 50 mcg A/P Assessment and plan (1) Pneumonia: Status: Acute (2) Clinical sepsis: Status: Acute (3) Acute respiratory failure with hypoxia: Status: Acute (4) Morbid obesity: Status: Chronic (5) Stage 1 acute kidney injury: Status: Acute (6) Hyperlipidemia: Status: Chronic Comment: On losartan and now diltiazem so watch for Rx interaction (7) Essential hypertension: Status: Chronic (8) T2DM (type 2 diabetes mellitus): Status: Acute Narrative A/P Narrative: Assessment and Plans: 1. Pneumonia, failed outpatient oral antibiotics therapy with associated acute respiratory failure with hypoxia and clinical sepsis: Inpatient med surg [place] CoVID PCR pending Supplemental oxygen therapy Serial lactic acid 1.1 Procalcitonin 5.79 Blood culture, no growth to date cbc w/ auto diff in the morning to trend WBC s/p IV fluid bolus given in the ED, to be followed by NS@100cc/hr Rocephin Zithromax Physical therapy 2. T2DM: HgA1c 6.3 Hold oral hypoglycemics Lantus 50 unit BID Meal time insulin TID AC plus Insulin Lispro SSI AC HS Accu Check AC HS Hypoglycemia protocol Diabetic diet 3. Stage 1 acute kidney injury: Avoid nephrotoxic agents; holding Lisinopril s/p IV fluid bolus given in the ED, to be followed by NS@100cc/hr CMP in the morning to trend kidney functions 4. Essential hypertension: Currently normotensive Diltiazem Holding Lisinopril because of acute kidney injury Hydralazine 10mg IV q4-6hr PRN SBP>=180 and/or DBP>=110mmHg 5. Dyslipidemia: Continue statin therapy 6. Morbid obesity BMI 41.4: Lockstitcher patient on life style modifications including regular exercise and healthy diet in order to lose weight GI ppx: not currently indicated DVT ppx: Heparin Code status: Full Prognosis: guarded Disposition: inpatient med surg; PT Time Spent With Patient Time: Total time spent is greater than 50% in coordination of care (as documented) at patient's floor/unit and/or counseling patient: Total time spent with greater than 50% in coordination of care (as documented) at patient's floor/unit and/or counseling patient:: 35 - 50 minutes QUALITY Stroke Symptom Onset Unknown: No VTE Deep Vein Thrombosis/Pulmonary Embolism Present on Admission: No
[2022-09-14] MEDS: SENNOSIDES 1 TABLET PO SCH (20:05)
[2022-09-14] MEDS: POLYETHYLENE GLYCOL 3350 17 GM PACKET PO SCH (20:06)
[2022-09-14] MEDS: ACETAMINOPHEN 325 MG TABLET PO PRN (23:46)
[2022-09-15] MEDS: 0.9 % SODIUM CHLORIDE 1,000 ML IV SCH ×2 (04:16→05:56)
[2022-09-15] MEDS: 0.9 % SODIUM CHLORIDE 10 ML SYRINGE IV SCH ×2 (05:19→12:14)
[2022-09-15] MEDS: guaiFENesin/DEXTROMETHORPHAN ORAL SOL PO PRN (06:00)
[2022-09-15 07:27] LABS: Basophils # (Auto) 0 K/mcL (0.00-0.30); Basophils % (Auto) 0 % (0.0-2.0); Eosinophils # (Auto) 0 K/mcL (0.00-0.70); Eosinophils % (Auto) 0 % (0.0-7.0); Lymphocytes # (Auto) 0.42 K/mcL (1.50-4.80); Lymphocytes % (Auto) 5.3 % (15.5-49.0); Mean Cell Volume 85.7 fL (80.0-100.0); Mean Corpuscular HGB Conc 33.3 g/dL (31.0-36.0); Monocytes # (Auto) 0.38 K/mcL (0.10-0.90); Monocytes % (Auto) 4.8 % (1.0-12.0); Neutrophils % (Auto) 89.4 % (38.0-78.0); Platelet Count 118 K/mcL (140-440); Red Cell Distribution Width 14.4 % (11.5-14.5)
[2022-09-15] MEDS: INSULIN LISPRO 1 UNIT/0.01 ML UNIT SQ SCH ×7 (07:38→23:53)
[2022-09-15 07:57] LABS: ALT/SGPT 22 U/L (<40); AST/SGOT 31 U/L (<40); Albumin 2.6 gm/dL (3.2-5.2); Albumin/Globulin Ratio 0.7 (1.0-2.3); Alkaline Phosphatase 148 U/L (39-117); Bilirubin,Total 0.5 mg/dL (0.1-1.0); Blood Urea Nitrogen 19 mg/dL (6-20); Calcium 8.6 mg/dL (8.6-10.4); Carbon Dioxide 23 mmol/L (22-30); Chloride 100 mmol/L (96-108); Globulin 3.8 gm/dL (2.2-3.7); Glomerular Filtration Rate 95; Glucose 180 mg/dL (70-105)
[2022-09-15] MEDS ORDERED: IOPAMIDOL 100 ML BOTTLE IV ONE (08:39)
[2022-09-15] MEDS: VITAMIN D3 25 MCG TABLET PO SCH (08:53)
[2022-09-15] MEDS: INSULIN GLARGINE, HUMAN 1 UNIT/0.01 ML SQ SCH ×2 (08:53→22:20)
[2022-09-15] MEDS: SIMVASTATIN 40 MG TABLET PO SCH (08:53)
[2022-09-15] MEDS: HEPARIN 5,000 UNIT/ML VIAL SQ SCH (08:53)
[2022-09-15] MEDS: cefTRIAXone 1 GM VIAL IV SCH (08:53)
[2022-09-15] MEDS: DOCUSATE SODIUM 100 MG CAPSULE PO SCH ×2 (08:53→23:52)
[2022-09-15] MEDS: POLYETHYLENE GLYCOL 3350 17 GM PACKET PO SCH ×3 (08:53→22:21)
--- NOTE | 2022-09-15 09:14 | Cat Scan Report ---
INDICATION: Low saturation COMPARISON: None TECHNIQUE: Axial images obtained through the chest. 70ml Isovue 370 injected intravenously, and scanning was performed during pulmonary arterial phase. Sagittally and coronally reformatted images were obtained. MIP reformatted images. FINDINGS: Lungs:Extensive consolidation involving the left upper lobe and left lower lobe. Appearance is consistent with pneumonia. There is a new finding since 10/29/2021 but is essentially unchanged since previous chest x-ray dated 09/13/2022 Mediastinum, vascular:Main pulmonary artery, right pulmonary artery, left pulmonary artery are negative. No intraluminal filling defects. No lobar, segmental, or subsegmental emboli. Thoracic aorta is negative. No aneurysmal dilatation No pathologic mediastinal or hilar adenopathy Heart:No cardiomegaly. No pericardial effusion. No significant reflux of contrast material into the inferior vena cava or hepatic veins Pleura:No significant pleural effusion. No pleural mass or calcification. There is elevation of the right hemidiaphragm. This is present on previous chest x-rays Axilla, supraclavicular regions, chest wall:No pathologic axillary or supraclavicular adenopathy. There is bilateral gynecomastia Musculoskeletal:Negative thoracic spine. No compression fracture. No lytic lesion. No rib or sternal lesions Upper Abdomen:Spleen measures 19 cm in AP dimension. Spleen is incompletely imaged and craniocaudal dimension is not known IMPRESSION: 1. Extensive left lung infiltrates consistent with pneumonia 2. Negative pulmonary CTA 3. Elevated right hemidiaphragm 4. Splenomegaly The exam was performed using radiation dose optimization techniques including, but not limited to, automated exposure control, adjustment of the mA and/or kV according to patient size and use of iterative reconstruction technique. Interpreted and Authenticated by: Chi Nur 09/15/22
[2022-09-15] MEDS ORDERED: FLU VACC QS2022-23(6MOS UP)/PF 60 MCG/0.5 ML SYRINGE IM ONE (10:00)
--- NOTE | 2022-09-15 10:14 | Internal Med Progress Note ---
SUBJECTIVE Subjective Patient information: Note initiated : 09/15/22 at 10:12 am Service Date, if different from initiated Date: [] Patient: Bro Malave a 57 y/o M admitted on 09/13/22 for Shortness of breath. Chief Complaint: [] Interval history: Mr. Malave is a 57 year old M history of type 2 diabetes mellitus, essential hypertension, mixed dyslipidemia, morbid obesity, presenting with 5-day history of shortness of breath and general body weakness. He is complaining of shortness of breath, general body weakness, nonproductive cough, respiratory wheezings, fever, chills, diaphoresis, for the past 5 days. His symptoms got worse yesterday, so he presented to our ED where he was being diagnosed with a left-sided pneumonia. He was being discharged home with prescriptions of Augmentin. He took the Augmentin as prescribed, but today his general body weakness got worse to the point that his leg just gave up and he could not walk and he fell. As a result, he returned back to our ED for reevaluations and treatments. Vital signs significant for tachycardia and tachypnea, and his oxygen was desaturating in the upper 80s on room air so the ER physician started him on nasal cannula oxygen's. Labs significant for lack of leukocytosis with WBC 8.4. Serum lactic acid 1.1. Sariah from yesterday was negative. Chest x- ray showing worsening left-sided infiltrates relative to the x-ray from yesterday. Admission request was called for sepsis associated with pneumonia failing outpatient oral antibiotic therapy. 09/14: Afebrile overnight. On 2L/min oxygen via nasal cannula. [place] pending. Blood cultures no growth to date. Fasting glucose 286. Patient is complaining of improving degree of shortness of breath. He is complain of general body weakness. He is complaining of diaphoresis. He is coming of nonproductive cough and respiratory wheezings. Continue IV fluid with empiric antibiotics Rocephin and azithromycin while waiting for culture results. Continue to monitor for [place] result. Pending physical therapy evaluation and treatment for placement planning. 09/15: Afebrile overnight. Had increased work of breathing and tachycardia with RR in the 30s earlier this morning, now better degree of dyspnea. CT angiogram chest negative for pulmonary embolism. Extensive left lung infiltrates consistent with pneumonia. [place] negative for CoVID. Blood cultures no growth to date. Fasting glucose 187. Patient is c/o improving degree of dyspnea. c/o productive cough and respiratory wheezing. c/o fever, chills, and diaphoresis. Saline lock. Switch antibiotics from Rocephin and Azithromycin to Zosyn for broader coverage. Pending physical therapy evaluation and treatment for placement planning. Constitutional Vitals: Vital Signs Temp Pulse Resp BP Pulse Ox O2 Del Method O2 Flow Rate 36.7 C 100 H 32 H 125/86 90 6 09/15/22 08:51 09/15/22 08:51 09/15/22 08:51 09/15/22 08:51 09/15/22 08:59 09/15/22 08:59 09/15/22 08:59 Period Temp Pulse Resp BP Sys/Cruz Pulse Ox O2 Del Method O2 Flow Rate Last 24 Hr 36.5 C-37.9 C 83-109 12-32 125-144/58-86 90-98 Nasal Cannula- Room Air 2-10 Intake and Output 09/14/22 09/15/22 09/15/22 21:59 05:59 13:59 Intake Total 1620 1782 Output Total 750 600 Balance 870 1782 -600 Weight 155.129 kg Intake & Output: Intake & Output 09/14/22 09/15/22 09/15/22 21:59 05:59 13:59 Intake Total 1620 1782 Output Total 750 600 Balance 870 1782 -600 Weight 155.129 kg Intake: IV 900 982 Sodium Chloride 0.9% 1,000 ml @ 900 982 100 mls/hr IV .Q10H [facility] Rx#: [id number] Oral 720 800 Output: Void Amount 750 600 Other: Meal Dinner Percent of Meal Consumed 100% Feeding Ability Assist with Tray Set Up Urine Color Yellow Yellow # Voids 1 General appearance: cooperative, mild distress and morbidly obese Head Head exam: Present atraumatic and normal inspection Eye Eye exam: Present normal appearance ENT ENT exam: Present mucous membranes moist, normal exam and normal external ear exam Additional comments: Oyxmask in place Neck Neck exam: Present normal inspection Respiratory Respiratory exam: Present decreased breath sounds and rhonchi Additional comments: Tachypnea Cardiovascular Cardiovascular exam: Present normal rate and rhythm GI/Abdominal GI/Abdominal exam: Present normal bowel sounds Back Exam Back exam: Present normal inspection Neurological Exam Neurological exam: Present alert and oriented X3 Skin Skin exam: Present intact and warm OBJ DATA Labs CBC & Chem 7: 09/15/22 05:39 09/15/22 05:39 Labs: Abnormal Lab Results 09/15/22 09/15/22 09/14/22 05:39 05:39 06:04 RBC 4.20 L Hgb 12.0 L Hct 36.0 L POC Hct RDW Plt Count 118 L Immature Gran % (Auto) Neut % (Auto) 89.4 H Lymph % (Auto) 5.3 L Lymph # (Auto) 0.42 L Immature Gran # POC VBG pH POC VBG pCO2 at Temp POC VBG pO2 POC VBG HCO3 POC VBG Total CO2 POC Venous O2 Sat POC Sodium POC Chloride Chloride 95 L Carbon Dioxide 16 L POC Total CO2 Anion Gap 22.0 H POC Creatinine Glucose 180 H 301 H POC Glucose Hemoglobin A1c Calcium 8.3 L POC WB Ioniz Calcium AST 40 H Alkaline Phosphatase 148 H 126 H C-Reactive Protein Albumin 2.6 L 2.5 L Globulin 3.8 H 3.9 H Albumin/Globulin Ratio 0.7 L 0.6 L Procalcitonin Urine Appearance Urine Protein Urine Glucose (UA) Urine Ketones Urine Occult Blood Urine RBC Urine WBC Urine Mucus 09/14/22 09/13/22 09/13/22 06:04 19:26 17:57 RBC 3.85 L Hgb 10.8 L Hct 33.9 L POC Hct RDW Plt Count 102 L Immature Gran % (Auto) Neut % (Auto) 92.1 H Lymph % (Auto) 5.3 L Lymph # (Auto) 0.34 L Immature Gran # POC VBG pH 7.47 H POC VBG pCO2 at Temp 30.2 L POC VBG pO2 42 H POC VBG HCO3 21.9 L POC VBG Total CO2 23.0 L POC Venous O2 Sat 81.0 H POC Sodium POC Chloride Chloride Carbon Dioxide POC Total CO2 Anion Gap POC Creatinine Glucose POC Glucose Hemoglobin A1c Calcium POC WB Ioniz Calcium AST Alkaline Phosphatase C-Reactive Protein Albumin Globulin Albumin/Globulin Ratio Procalcitonin Urine Appearance Cloudy A Urine Protein >=500 A Urine Glucose (UA) >=500 A Urine Ketones 20 A Urine Occult Blood >=1.0 A Urine RBC 6 H Urine WBC 6 H Urine Mucus Few A 10/09/13/22 09/13/22 17:07 17:07 17:07 RBC Hgb Hct POC Hct 35.0 L RDW Plt Count Immature Gran % (Auto) Neut % (Auto) Lymph % (Auto) Lymph # (Auto) Immature Gran # POC VBG pH POC VBG pCO2 at Temp POC VBG pO2 POC VBG HCO3 POC VBG Total CO2 POC Venous O2 Sat POC Sodium 131 L POC Chloride 93 L Chloride Carbon Dioxide POC Total CO2 20.0 L Anion Gap POC Creatinine 1.4 H Glucose POC Glucose 163 H Hemoglobin A1c 6.3 H Calcium POC WB Ioniz Calcium 1.10 L AST Alkaline Phosphatase C-Reactive Protein Albumin Globulin Albumin/Globulin Ratio Procalcitonin 5.79 H Urine Appearance Urine Protein Urine Glucose (UA) Urine Ketones Urine Occult Blood Urine RBC Urine WBC Urine Mucus 09/13/22 09/13/22 17:06 17:06 RBC 4.14 L Hgb 11.7 L Hct 34.8 L POC Hct RDW 14.6 H Plt Count 117 L Immature Gran % (Auto) 0.7 H Neut % (Auto) 89.8 H Lymph % (Auto) 5.7 L Lymph # (Auto) 0.48 L Immature Gran # 0.06 H POC VBG pH POC VBG pCO2 at Temp POC VBG pO2 POC VBG HCO3 POC VBG Total CO2 POC Venous O2 Sat POC Sodium POC Chloride Chloride Carbon Dioxide POC Total CO2 Anion Gap POC Creatinine Glucose POC Glucose Hemoglobin A1c Calcium POC WB Ioniz Calcium AST Alkaline Phosphatase C-Reactive Protein 31.10 H Albumin Globulin Albumin/Globulin Ratio Procalcitonin Urine Appearance Urine Protein Urine Glucose (UA) Urine Ketones Urine Occult Blood Urine RBC Urine WBC Urine Mucus Meds: Medications Acetaminophen (Acetaminophen 325 Mg Tablet) 650 mg PO Q6HP PRN; Protocol PRN Reason: Per Pain Protocol/Fever > 101 Last Admin: 09/14/22 23:46 Dose: 650 mg Albuterol Sulfate (Albuterol Sulfate 200 Puff Inhaler) 2 puff INH DAILYP PRN PRN Reason: Shortness Of Breath Albuterol/Ipratropium (Ipratropium/Albuterol 3 Ml Ampul.Neb) 3 ml NEB Q4HRT PRN PRN Reason: Wheezing Last Admin: 09/15/22 07:04 Dose: 3 ml Ceftriaxone Sodium (Ceftriaxone 1 Gm Vial) 1 gm IV DAILY HELEN Last Admin: 09/15/22 08:53 Dose: 1 gm Dextrose (Dextrose 50% 50 Ml Vial) 0 ml IV UD PRN PRN Reason: Per Sliding Scale Diagnostic Test (Pha) (Accu-Chek 1 Each Strip) 1 each FS [facility] Last Admin: 09/15/22 07:30 Dose: 1 each Docusate Sodium (Docusate Sodium 100 Mg Capsule) 100 mg PO BID [facility] Last Admin: 09/15/22 08:53 Dose: 100 mg Glucose (Dextrose 31 Gm Oral.Susp) 15 gm PO PRN PRN PRN Reason: Hypoglycemia Guaifenesin (Guaifenesin/Dextromethorphan Oral Ingrid) 10 ml PO Q4HP PRN PRN Reason: Cough Last Admin: 09/15/22 06:00 Dose: 10 ml Heparin Sodium (Porcine) (Heparin 5,000 Unit/Ml Vial) 5,000 unit SQ Q12 [facility] Last Admin: 09/15/22 08:53 Dose: 5,000 unit Hydralazine HCl (Hydralazine 20 Mg/Ml Vial) 10 mg IV Q4-6HP PRN PRN Reason: Hypertension Sodium Chloride (Sodium Chloride 0.9%) 1,000 mls @ 100 mls/hr IV .Q10H [facility] Last Admin: 09/15/22 05:56 Dose: 100 mls/hr Azithromycin 500 mg/ Dextrose 250 mls @ 250 mls/hr IV Q24H [facility]; Protocol Stop: 09/15/22 22:38 Last Infusion: 09/14/22 12:23 Dose: Infused Ibuprofen (Ibuprofen 600 Mg Tablet) 600 mg PO QIDP PRN; Protocol PRN Reason: Per Pain Protocol/Fever > 101 Insulin Glargine (Insulin Glargine, Human 1 Unit/0.01 Ml) 50 unit SQ BID [facility] Last Admin: 09/15/22 08:53 Dose: 50 units Insulin Human Lispro (Insulin Lispro 1 Unit/0.01 Ml Unit) 0 unit SQ [facility]; Protocol Last Admin: 09/15/22 07:38 Dose: 2 units Insulin Human Lispro (Insulin Lispro 1 Unit/0.01 Ml Unit) [facility] Last Admin: 09/15/22 07:38 Dose: 18 units Insulin Human Lispro (Insulin Lispro 1 Unit/0.01 Ml Unit) 15 unit SQ DAILY@1200 [facility] Last Admin: 09/14/22 11:29 Dose: 15 units Insulin Human Lispro (Insulin Lispro 1 Unit/0.01 Ml Unit) 30 unit SQ QPMCC [facility] Last Admin: 09/14/22 17:20 Dose: 30 units Lidocaine (Lidocaine Patch) 1 patch TOPICAL DAILYP PRN PRN Reason: Pain Ondansetron HCl (Ondansetron 4 Mg/2 Ml Vial) 4 mg IV Q6HP PRN PRN Reason: Nausea And Vomiting Polyethylene Glycol (Polyethylene Glycol 3350 17 Gm Packet) 17 gm PO BID [facility] Last Admin: 09/15/22 08:55 Dose: Not Given Senna (Sennosides 1 Tablet) 2 tab PO HS [facility] Last Admin: 09/14/22 20:05 Dose: 2 tab Simvastatin (Simvastatin 40 Mg Tablet) 40 mg PO QDAY [facility] Last Admin: 09/15/22 08:53 Dose: 40 mg Sodium Chloride (0.9 % Sodium Chloride 10 Ml Syringe) 10 ml IV Q8 [facility] Last Admin: 09/15/22 05:19 Dose: Not Given Vitamin D (Vitamin D3 25 Mcg Tablet) 50 mcg PO DAILY [facility] Last Admin: 09/15/22 08:53 Dose: 50 mcg A/P Assessment and plan (1) Pneumonia: Status: Acute (2) Clinical sepsis: Status: Acute (3) Acute respiratory failure with hypoxia: Status: Acute (4) Morbid obesity: Status: Chronic (5) Stage 1 acute kidney injury: Status: Acute (6) Hyperlipidemia: Status: Chronic Comment: On losartan and now diltiazem so watch for Rx interaction (7) Essential hypertension: Status: Chronic (8) T2DM (type 2 diabetes mellitus): Status: Acute Narrative A/P Narrative: Assessment and Plans: 1. Pneumonia, failed outpatient oral antibiotics therapy with associated acute respiratory failure with hypoxia and clinical sepsis: Inpatient med surg [place] CoVID PCR negative Supplemental oxygen therapy Serial lactic acid 1.1 Procalcitonin 5.79 Blood culture, no growth to date cbc w/ auto diff in the morning to trend WBC Saline lock d/c Rocephin d/c Zithromax Start Zosyn for broader antibiotics coverage Physical therapy 2. T2DM: HgA1c 6.3 Hold oral hypoglycemics Lantus 50 unit BID Meal time insulin TID AC plus Insulin Lispro SSI AC HS Accu Check AC HS Hypoglycemia protocol Diabetic diet 3. Stage 1 acute kidney injury: Avoid nephrotoxic agents; holding Lisinopril Saline lock CMP in the morning to trend kidney functions 4. Essential hypertension: Currently normotensive Diltiazem Resume Lisinopril Hydralazine 10mg IV q4-6hr PRN SBP>=180 and/or DBP>=110mmHg 5. Dyslipidemia: Continue statin therapy 6. 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 including regular exercise and healthy diet in order to lose weight GI ppx: not currently indicated DVT ppx: Lovenox Code status: Full Prognosis: guarded Disposition: inpatient med surg; PT Time Spent With Patient Time: Total time spent is greater than 50% in coordination of care (as documented) at patient's floor/unit and/or counseling patient: Total time spent with greater than 50% in coordination of care (as documented) at patient's floor/unit and/or counseling patient:: 35 - 50 minutes QUALITY Stroke Symptom Onset Unknown: No VTE Deep Vein Thrombosis/Pulmonary Embolism Present on Admission: No
[2022-09-15] MEDS: PIPERACILLIN SODIUM/TAZOBACTAM 3.375 GM in DEXTROSE 5% IN WATER 50 ML IV SCH ×2 (11:06→17:34)
[2022-09-15] MEDS: LISINOPRIL 20 MG TABLET PO SCH (22:20)
[2022-09-15] MEDS: SENNOSIDES 1 TABLET PO SCH (22:21)
[2022-09-16] MEDS: 0.9 % SODIUM CHLORIDE 10 ML SYRINGE IV SCH ×4 (00:19→20:52)
[2022-09-16] MEDS: PIPERACILLIN SODIUM/TAZOBACTAM 3.375 GM in DEXTROSE 5% IN WATER 50 ML IV SCH ×4 (00:20→17:37)
[2022-09-16 07:13] LABS: Basophils # (Auto) 0 K/mcL (0.00-0.30); Basophils % (Auto) 0 % (0.0-2.0); Eosinophils # (Auto) 0.04 K/mcL (0.00-0.70); Hematocrit 32.7 % (40.1-51.0); Hemoglobin 10.6 g/dL (13.7-17.5); Lymphocytes # (Auto) 0.57 K/mcL (1.50-4.80); Lymphocytes % (Auto) 14.2 % (15.5-49.0); Mean Cell Volume 87.2 fL (80.0-100.0); Mean Corpuscular HGB Conc 32.4 g/dL (31.0-36.0); Mean Platelet Volume 11.9 fL (8.8-12.5); Monocytes # (Auto) 0.32 K/mcL (0.10-0.90); Neutrophils % (Auto) 76.1 % (38.0-78.0); Platelet Count 118 K/mcL (140-440); RBC 3.75 M/mcL (4.63-6.08); Red Cell Distribution Width 14.6 % (11.5-14.5)
[2022-09-16 07:41] LABS: ALT/SGPT 20 U/L (<40); AST/SGOT 28 U/L (<40); Albumin 2.6 gm/dL (3.2-5.2); Albumin/Globulin Ratio 1.1 (1.0-2.3); Alkaline Phosphatase 103 U/L (39-117); Bilirubin,Total 0.7 mg/dL (0.1-1.0); Blood Urea Nitrogen 14 mg/dL (6-20); Calcium 8.1 mg/dL (8.6-10.4); Carbon Dioxide 25 mmol/L (22-30); Chloride 101 mmol/L (96-108); Globulin 2.4 gm/dL (2.2-3.7); Glomerular Filtration Rate 95; Glucose 111 mg/dL (70-105)
[2022-09-16] MEDS: DOCUSATE SODIUM 100 MG CAPSULE PO SCH ×2 (08:42→20:47)
[2022-09-16] MEDS: INSULIN GLARGINE, HUMAN 1 UNIT/0.01 ML SQ SCH ×2 (08:43→20:48)
[2022-09-16] MEDS: INSULIN LISPRO 1 UNIT/0.01 ML UNIT SQ SCH ×7 (08:43→20:46)
[2022-09-16] MEDS: DILTIAZEM 120 MG CAP.XL.24H PO SCH (08:43)
[2022-09-16] MEDS: VITAMIN D3 25 MCG TABLET PO SCH (08:43)
[2022-09-16] MEDS: POLYETHYLENE GLYCOL 3350 17 GM PACKET PO SCH ×2 (08:44→20:48)
[2022-09-16] MEDS: ENOXAPARIN 40 MG/0.4 ML SYRINGE SQ SCH (08:44)
[2022-09-16] MEDS ORDERED: METHOCARBAMOL 750 MG TABLET PO PRN (10:47)
[2022-09-16] MEDS ORDERED: BACLOFEN 10 MG TABLET PO PRN (10:53)
--- NOTE | 2022-09-16 11:02 | Internal Med Progress Note ---
SUBJECTIVE Subjective Patient information: Note initiated : 09/16/22 at 10:58 am Service Date, if different from initiated Date: [] Patient: Bro Malave 57 y/o M admitted on 09/13/22 for Shortness of breath. Chief Complaint: [] Interval history: Mr. Malave is a 57 year old M history of type 2 diabetes mellitus, essential hypertension, mixed dyslipidemia, morbid obesity, presenting with 5-day history of shortness of breath and general body weakness. He is complaining of shortness of breath, general body weakness, nonproductive cough, respiratory wheezings, fever, chills, diaphoresis, for the past 5 days. His symptoms got worse yesterday, so he presented to our ED where he was being diagnosed with a left-sided pneumonia. He was being discharged home with prescriptions of Augmentin. He took the Augmentin as prescribed, but today his general body weakness got worse to the point that his leg just gave up and he could not walk and he fell. As a result, he returned back to our ED for reevaluations and treatments. Vital signs significant for tachycardia and tachypnea, and his oxygen was desaturating in the upper 80s on room air so the ER physician started him on nasal cannula oxygen's. Labs significant for lack of leukocytosis with WBC 8.4. Serum lactic acid 1.1. Sariah from yesterday was negative. Chest x- ray showing worsening left-sided infiltrates relative to the x-ray from yesterday. Admission request was called for sepsis associated with pneumonia failing outpatient oral antibiotic therapy. 09/14: Afebrile overnight. On 2L/min oxygen via nasal cannula. [place] pending. Blood cultures no growth to date. Fasting glucose 286. Patient is complaining of improving degree of shortness of breath. He is complain of general body weakness. He is complaining of diaphoresis. He is coming of nonproductive cough and respiratory wheezings. Continue IV fluid with empiric antibiotics Rocephin and azithromycin while waiting for culture results. Continue to monitor for [place] result. Pending physical therapy evaluation and treatment for placement planning. 09/15: Afebrile overnight. Had increased work of breathing and tachycardia with RR in the 30s earlier this morning, now better degree of dyspnea. CT angiogram chest negative for pulmonary embolism. Extensive left lung infiltrates consistent with pneumonia. [place] negative for CoVID. Blood cultures no growth to date. Fasting glucose 187. Patient is c/o improving degree of dyspnea. c/o productive cough and respiratory wheezing. c/o fever, chills, and diaphoresis. Saline lock. Switch antibiotics from Rocephin and Azithromycin to Zosyn for broader coverage. Pending physical therapy evaluation and treatment for placement planning. 09/16: Patient was transferred to inpatient PCU yesterday evening due to increased oxygen requirement. Patient is currently on high flow oxygen 35 L/min with FiO2 of 40%. Afebrile overnight. Blood cultures no growth to date. Fasting glucose 120. Patient is c/o improving degree of dyspnea. c/o productive cough with clear/bloody sputum. Denies respiratory wheezing. Denies subjective fever, chills, and diaphoresis. Continue to wean oxygen as tolerated. Continue Zosyn while waiting for culture results. Pending physical therapy evaluation and treatment for placement planning. Constitutional Vitals: Vital Signs Temp Pulse Resp BP Pulse Ox O2 Del Method O2 Flow Rate 36.4 C 86 24 H 133/66 95 35 09/16/22 08:01 09/16/22 10:27 09/16/22 10:27 09/16/22 10:01 09/16/22 10:27 09/16/22 10:27 09/16/22 10:27 Period Temp Pulse Resp BP Sys/Cruz Pulse Ox O2 Del Method O2 Flow Rate Last 24 Hr 36.2 C-37.1 C 77-110 16-37 114-149/58-84 90-100 Heated High Flow Nasal Ca-Oxymask 5-35 Intake and Output 09/15/22 09/16/22 09/16/22 21:59 05:59 13:59 Intake Total 1500 350 780 Output Total 400 850 Balance 1500 -50 -70 Weight 163.021 kg Intake & Output: Intake & Output 09/15/22 09/16/22 09/16/22 21:59 05:59 13:59 Intake Total 1500 350 780 Output Total 400 850 Balance 1500 -50 -70 Weight 163.021 kg Intake: IV 900 150 Sodium Chloride 0.9% 1,000 ml @ 900 100 mls/hr IV .Q10H HELEN Rx#: [id number] Zosyn 3.375 gm In Dextrose 5% 150 in Water 50 ml @ 100 mls/hr IV Q6H HELEN Rx#:[id number] Oral 600 200 780 Output: Void Amount 400 850 Other: Meal Nourishment/Supplement Breakfast Percent of Meal Consumed 100% 100% Feeding Ability Independent Urine Appearance Clear Urine Color Dark Loly Urine Odor Normal General appearance: cooperative, morbidly obese and no acute distress Head Head exam: Present atraumatic and normal inspection Eye Eye exam: Present normal appearance ENT ENT exam: Present mucous membranes moist, normal exam and normal external ear exam Additional comments: High flow oxygen in place Neck Neck exam: Present normal inspection Respiratory Respiratory exam: Present rhonchi Cardiovascular Cardiovascular exam: Present normal rate and rhythm GI/Abdominal GI/Abdominal exam: Present normal bowel sounds Back Exam Back exam: Present normal inspection Neurological Exam Neurological exam: Present alert and oriented X3 Skin Skin exam: Present intact and warm OBJ DATA Labs CBC & Chem 7: 09/16/22 05:38 09/16/22 05:38 Labs: Abnormal Lab Results 09/16/22 09/16/22 09/15/22 05:38 05:38 05:39 WBC 4.0 L RBC 3.75 L Hgb 10.6 L Hct 32.7 L POC Hct RDW 14.6 H Plt Count 118 L Immature Gran % (Auto) 0.7 H Neut % (Auto) Lymph % (Auto) 14.2 L Lymph # (Auto) 0.57 L Immature Gran # POC VBG pH POC VBG pCO2 at Temp POC VBG pO2 POC VBG HCO3 POC VBG Total CO2 POC Venous O2 Sat POC Sodium POC Chloride Chloride Carbon Dioxide POC Total CO2 Anion Gap POC Creatinine Glucose 111 H 180 H POC Glucose Hemoglobin A1c Calcium 8.1 L POC WB Ioniz Calcium AST Alkaline Phosphatase 148 H C-Reactive Protein Total Protein 5.0 L Albumin 2.6 L 2.6 L Globulin 3.8 H Albumin/Globulin Ratio 0.7 L Procalcitonin Urine Appearance Urine Protein Urine Glucose (UA) Urine Ketones Urine Occult Blood Urine RBC Urine WBC Urine Mucus 09/15/22 09/14/22 09/14/22 05:39 06:04 06:04 WBC RBC 4.20 L 3.85 L Hgb 12.0 L 10.8 L Hct 36.0 L 33.9 L POC Hct RDW Plt Count 118 L 102 L Immature Gran % (Auto) Neut % (Auto) 89.4 H 92.1 H Lymph % (Auto) 5.3 L 5.3 L Lymph # (Auto) 0.42 L 0.34 L Immature Gran # POC VBG pH POC VBG pCO2 at Temp POC VBG pO2 POC VBG HCO3 POC VBG Total CO2 POC Venous O2 Sat POC Sodium POC Chloride Chloride 95 L Carbon Dioxide 16 L POC Total CO2 Anion Gap 22.0 H POC Creatinine Glucose 301 H POC Glucose Hemoglobin A1c Calcium 8.3 L POC WB Ioniz Calcium AST 40 H Alkaline Phosphatase 126 H C-Reactive Protein Total Protein Albumin 2.5 L Globulin 3.9 H Albumin/Globulin Ratio 0.6 L Procalcitonin Urine Appearance Urine Protein Urine Glucose (UA) Urine Ketones Urine Occult Blood Urine RBC Urine WBC Urine Mucus 09/13/22 09/13/22 09/13/22 19:26 17:57 17:07 WBC RBC Hgb Hct POC Hct RDW Plt Count Immature Gran % (Auto) Neut % (Auto) Lymph % (Auto) Lymph # (Auto) Immature Gran # POC VBG pH 7.47 H POC VBG pCO2 at Temp 30.2 L POC VBG pO2 42 H POC VBG HCO3 21.9 L POC VBG Total CO2 23.0 L POC Venous O2 Sat 81.0 H POC Sodium POC Chloride Chloride Carbon Dioxide POC Total CO2 Anion Gap POC Creatinine Glucose POC Glucose Hemoglobin A1c Calcium POC WB Ioniz Calcium AST Alkaline Phosphatase C-Reactive Protein Total Protein Albumin Globulin Albumin/Globulin Ratio Procalcitonin 5.79 H Urine Appearance Cloudy A Urine Protein >=500 A Urine Glucose (UA) >=500 A Urine Ketones 20 A Urine Occult Blood >=1.0 A Urine RBC 6 H Urine WBC 6 H Urine Mucus Few A 09/13/22 09/13/22 09/13/22 17:07 17:07 17:06 WBC RBC Hgb Hct POC Hct 35.0 L RDW Plt Count Immature Gran % (Auto) Neut % (Auto) Lymph % (Auto) Lymph # (Auto) Immature Gran # POC VBG pH POC VBG pCO2 at Temp POC VBG pO2 POC VBG HCO3 POC VBG Total CO2 POC Venous O2 Sat POC Sodium 131 L POC Chloride 93 L Chloride Carbon Dioxide POC Total CO2 20.0 L Anion Gap POC Creatinine 1.4 H Glucose POC Glucose 163 H Hemoglobin A1c 6.3 H Calcium POC WB Ioniz Calcium 1.10 L AST Alkaline Phosphatase C-Reactive Protein 31.10 H Total Protein Albumin Globulin Albumin/Globulin Ratio Procalcitonin Urine Appearance Urine Protein Urine Glucose (UA) Urine Ketones Urine Occult Blood Urine RBC Urine WBC Urine Mucus 09/13/22 17:06 WBC RBC 4.14 L Hgb 11.7 L Hct 34.8 L POC Hct RDW 14.6 H Plt Count 117 L Immature Gran % (Auto) 0.7 H Neut % (Auto) 89.8 H Lymph % (Auto) 5.7 L Lymph # (Auto) 0.48 L Immature Gran # 0.06 H POC VBG pH POC VBG pCO2 at Temp POC VBG pO2 POC VBG HCO3 POC VBG Total CO2 POC Venous O2 Sat POC Sodium POC Chloride Chloride Carbon Dioxide POC Total CO2 Anion Gap POC Creatinine Glucose POC Glucose Hemoglobin A1c Calcium POC WB Ioniz Calcium AST Alkaline Phosphatase C-Reactive Protein Total Protein Albumin Globulin Albumin/Globulin Ratio Procalcitonin Urine Appearance Urine Protein Urine Glucose (UA) Urine Ketones Urine Occult Blood Urine RBC Urine WBC Urine Mucus Meds: Medications Acetaminophen (Acetaminophen 325 Mg Tablet) 650 mg PO Q6HP PRN; Protocol PRN Reason: Per Pain Protocol/Fever > 101 Last Admin: 09/14/22 23:46 Dose: 650 mg Albuterol Sulfate (Albuterol Sulfate 200 Puff Inhaler) 2 puff INH DAILYP PRN PRN Reason: Shortness Of Breath Albuterol/Ipratropium (Ipratropium/Albuterol 3 Ml Ampul.Neb) 3 ml NEB Q4HRT PRN PRN Reason: Wheezing Last Admin: 09/15/22 07:04 Dose: 3 ml Baclofen (Baclofen 10 Mg Tablet) 10 mg PO TIDP PRN PRN Reason: MUSCLE SPASM Dextrose (Dextrose 50% 50 Ml Vial) 0 ml IV UD PRN PRN Reason: Per Sliding Scale Diagnostic Test (Pha) (Accu-Chek 1 Each Strip) 1 each FS ACHS [facility] Last Admin: 09/16/22 08:44 Dose: 1 each Diltiazem HCl (Diltiazem 120 Mg Cap.Xl.24h) 360 mg PO DAILY [facility] Last Admin: 09/16/22 08:43 Dose: 360 mg Docusate Sodium (Docusate Sodium 100 Mg Capsule) 100 mg PO BID [facility] Last Admin: 09/16/22 08:42 Dose: 100 mg Enoxaparin Sodium (Enoxaparin 40 Mg/0.4 Ml Syringe) 40 mg SQ DAILY [facility] Last Admin: 09/16/22 08:44 Dose: 40 mg Glucose (Dextrose 31 Gm Oral.Susp) 15 gm PO PRN PRN PRN Reason: Hypoglycemia Guaifenesin (Guaifenesin/Dextromethorphan Oral Ingrid) 10 ml PO Q4HP PRN PRN Reason: Cough Last Admin: 09/15/22 06:00 Dose: 10 ml Hydralazine HCl (Hydralazine 20 Mg/Ml Vial) 10 mg IV Q4-6HP PRN PRN Reason: Hypertension Piperacillin Sod/Tazobactam (Sod 3.375 gm/ Dextrose) 50 mls @ 100 mls/hr IV Q6H [facility]; Protocol Last Infusion: 09/16/22 05:40 Dose: Infused Ibuprofen (Ibuprofen 600 Mg Tablet) 600 mg PO QIDP PRN; Protocol PRN Reason: Per Pain Protocol/Fever > 101 Insulin Glargine (Insulin Glargine, Human 1 Unit/0.01 Ml) 50 unit SQ BID [facility] Last Admin: 09/16/22 08:43 Dose: 50 units Insulin Human Lispro (Insulin Lispro 1 Unit/0.01 Ml Unit) 0 unit SQ [facility]; Protocol Last Admin: 09/16/22 08:43 Dose: Not Given Insulin Human Lispro (Insulin Lispro 1 Unit/0.01 Ml Unit) [facility] Last Admin: 09/16/22 08:43 Dose: 360 units Insulin Human Lispro (Insulin Lispro 1 Unit/0.01 Ml Unit) 15 unit SQ DAILY@1200 [facility] Last Admin: 09/15/22 12:14 Dose: 15 units Insulin Human Lispro (Insulin Lispro 1 Unit/0.01 Ml Unit) [facility] Last Admin: 09/15/22 16:32 Dose: Not Given Lidocaine (Lidocaine Patch) 1 patch TOPICAL DAILYP PRN PRN Reason: Pain Lisinopril (Lisinopril 20 Mg Tablet) 40 mg PO HS [facility] Last Admin: 09/15/22 22:20 Dose: 40 mg Methocarbamol (Methocarbamol 750 Mg Tablet) 1 mg PO TIDP PRN PRN Reason: Pain Montelukast Sodium (Montelukast 10 Mg Tablet) 10 mg PO QDAY [facility] Ondansetron HCl (Ondansetron 4 Mg/2 Ml Vial) 4 mg IV Q6HP PRN PRN Reason: Nausea And Vomiting Polyethylene Glycol (Polyethylene Glycol 3350 17 Gm Packet) 17 gm PO BID [facility] Last Admin: 09/16/22 08:44 Dose: Not Given Senna (Sennosides 1 Tablet) 2 tab PO HS [facility] Last Admin: 09/15/22 22:21 Dose: Not Given Simvastatin (Simvastatin 40 Mg Tablet) 40 mg PO HS [facility] Sodium Chloride (0.9 % Sodium Chloride 10 Ml Syringe) 10 ml IV Q8 [facility] Last Admin: 09/16/22 05:07 Dose: 10 ml Vitamin D (Vitamin D3 25 Mcg Tablet) 50 mcg PO DAILY [facility] Last Admin: 09/16/22 08:43 Dose: 50 mcg A/P Assessment and plan (1) Pneumonia: Status: Acute (2) Clinical sepsis: Status: Acute (3) Acute respiratory failure with hypoxia: Status: Acute (4) Morbid obesity: Status: Chronic (5) Stage 1 acute kidney injury: Status: Acute (6) Hyperlipidemia: Status: Chronic Comment: On losartan and now diltiazem so watch for Rx interaction (7) Essential hypertension: Status: Chronic (8) T2DM (type 2 diabetes mellitus): Status: Acute Narrative A/P Narrative: Assessment and Plans: 1. Pneumonia, failed outpatient oral antibiotics therapy with associated acute respiratory failure with hypoxia and clinical sepsis: Inpatient PCU [place] CoVID PCR negative Supplemental oxygen therapy Serial lactic acid 1.1 Procalcitonin 5.79 Blood culture, no growth to date cbc w/ auto diff in the morning to trend WBC Saline lock Continue Zosyn for broader antibiotics coverage while waiting for culture results Physical therapy 2. T2DM: HgA1c 6.3 Hold oral hypoglycemics Lantus 50 unit BID Meal time insulin TID AC plus Insulin Lispro SSI AC HS Accu Check AC HS Hypoglycemia protocol Diabetic diet 3. Stage 1 acute kidney injury: Avoid nephrotoxic agents; holding Lisinopril Saline lock CMP in the morning to trend kidney functions 4. Essential hypertension: Currently normotensive Diltiazem Resume Lisinopril Hydralazine 10mg IV q4-6hr PRN SBP>=180 and/or DBP>=110mmHg 5. Dyslipidemia: Continue statin therapy 6. Morbid obesity BMI 41.4: [employer] patient on life style modifications including regular exercise and healthy diet in order to lose weight GI ppx: not currently indicated DVT ppx: Lovenox Code status: Full Prognosis: guarded Disposition: inpatient PCU; PT Time Spent With Patient Time: Total time spent is greater than 50% in coordination of care (as documented) at patient's floor/unit and/or counseling patient: Total time spent with greater than 50% in coordination of care (as documented) at patient's floor/unit and/or counseling patient:: 35 - 50 minutes QUALITY Stroke Symptom Onset Unknown: No VTE Deep Vein Thrombosis/Pulmonary Embolism Present on Admission: No
[2022-09-16] MEDS: SENNOSIDES 1 TABLET PO SCH (20:47)
[2022-09-16] MEDS: SIMVASTATIN 40 MG TABLET PO SCH (20:49)
[2022-09-16] MEDS: LISINOPRIL 20 MG TABLET PO SCH (20:52)
[2022-09-17] MEDS: PIPERACILLIN SODIUM/TAZOBACTAM 3.375 GM in DEXTROSE 5% IN WATER 50 ML IV SCH ×4 (00:17→17:09)
[2022-09-17] MEDS: 0.9 % SODIUM CHLORIDE 10 ML SYRINGE IV SCH ×3 (05:13→21:18)
[2022-09-17 07:24] LABS: Basophils # (Auto) 0.01 K/mcL (0.00-0.30); Basophils % (Auto) 0.3 % (0.0-2.0); Eosinophils % (Auto) 2.5 % (0.0-7.0); Hematocrit 33.6 % (40.1-51.0); Hemoglobin 10.6 g/dL (13.7-17.5); Lymphocytes # (Auto) 0.84 K/mcL (1.50-4.80); Lymphocytes % (Auto) 21.1 % (15.5-49.0); Mean Corpuscular HGB Conc 31.5 g/dL (31.0-36.0); Mean Platelet Volume 11.7 fL (8.8-12.5); Monocytes % (Auto) 7.5 % (1.0-12.0); Neutrophils % (Auto) 66.8 % (38.0-78.0); Platelet Count 149 K/mcL (140-440); RBC 3.82 M/mcL (4.63-6.08); Red Cell Distribution Width 14.6 % (11.5-14.5)
[2022-09-17 07:34] LABS: ALT/SGPT 20 U/L (<40); AST/SGOT 22 U/L (<40); Albumin 2.5 gm/dL (3.2-5.2); Albumin/Globulin Ratio 0.7 (1.0-2.3); Alkaline Phosphatase 104 U/L (39-117); Bilirubin,Total 0.7 mg/dL (0.1-1.0); Blood Urea Nitrogen 13 mg/dL (6-20); Calcium 8.4 mg/dL (8.6-10.4); Carbon Dioxide 26 mmol/L (22-30); Chloride 103 mmol/L (96-108); Globulin 3.5 gm/dL (2.2-3.7); Glomerular Filtration Rate 100; Glucose 84 mg/dL (70-105)
[2022-09-17] MEDS: DILTIAZEM 120 MG CAP.XL.24H PO SCH (08:21)
[2022-09-17] MEDS: ENOXAPARIN 40 MG/0.4 ML SYRINGE SQ SCH (08:21)
[2022-09-17] MEDS: INSULIN GLARGINE, HUMAN 1 UNIT/0.01 ML SQ SCH ×2 (08:21→21:17)
[2022-09-17] MEDS: POLYETHYLENE GLYCOL 3350 17 GM PACKET PO SCH ×2 (08:22→21:18)
[2022-09-17] MEDS: VITAMIN D3 25 MCG TABLET PO SCH (08:22)
[2022-09-17] MEDS: INSULIN LISPRO 1 UNIT/0.01 ML UNIT SQ SCH ×7 (08:22→21:17)
[2022-09-17] MEDS: MONTELUKAST 10 MG TABLET PO SCH (08:22)
[2022-09-17] MEDS: DOCUSATE SODIUM 100 MG CAPSULE PO SCH ×2 (08:24→21:16)
--- NOTE | 2022-09-17 09:15 | Internal Med Progress Note ---
SUBJECTIVE Subjective Patient information: Note initiated : 09/17/22 at 9:13 am Service Date, if different from initiated Date: [] Patient: Bro Malave 57 y/o M admitted on 09/13/22 for Shortness of breath. Chief Complaint: [] Interval history: Mr. Malave is a 57 year old M history of type 2 diabetes mellitus, essential hypertension, mixed dyslipidemia, morbid obesity, presenting with 5-day history of shortness of breath and general body weakness. He is complaining of shortness of breath, general body weakness, nonproductive cough, respiratory wheezings, fever, chills, diaphoresis, for the past 5 days. His symptoms got worse yesterday, so he presented to our ED where he was being diagnosed with a left-sided pneumonia. He was being discharged home with prescriptions of Augmentin. He took the Augmentin as prescribed, but today his general body weakness got worse to the point that his leg just gave up and he could not walk and he fell. As a result, he returned back to our ED for reevaluations and treatments. Vital signs significant for tachycardia and tachypnea, and his oxygen was desaturating in the upper 80s on room air so the ER physician started him on nasal cannula oxygen's. Labs significant for lack of leukocytosis with WBC 8.4. Serum lactic acid 1.1. Sariah from yesterday was negative. Chest x- ray showing worsening left-sided infiltrates relative to the x-ray from yesterday. Admission request was called for sepsis associated with pneumonia failing outpatient oral antibiotic therapy. 09/14: Afebrile overnight. On 2L/min oxygen via nasal cannula. [place] pending. Blood cultures no growth to date. Fasting glucose 286. Patient is complaining of improving degree of shortness of breath. He is complain of general body weakness. He is complaining of diaphoresis. He is coming of nonproductive cough and respiratory wheezings. Continue IV fluid with empiric antibiotics Rocephin and azithromycin while waiting for culture results. Continue to monitor for [place] result. Pending physical therapy evaluation and treatment for placement planning. 09/15: Afebrile overnight. Had increased work of breathing and tachycardia with RR in the 30s earlier this morning, now better degree of dyspnea. CT angiogram chest negative for pulmonary embolism. Extensive left lung infiltrates consistent with pneumonia. [place] negative for CoVID. Blood cultures no growth to date. Fasting glucose 187. Patient is c/o improving degree of dyspnea. c/o productive cough and respiratory wheezing. c/o fever, chills, and diaphoresis. Saline lock. Switch antibiotics from Rocephin and Azithromycin to Zosyn for broader coverage. Pending physical therapy evaluation and treatment for placement planning. 09/16: Patient was transferred to inpatient PCU yesterday evening due to increased oxygen requirement. Patient is currently on high flow oxygen 35 L/min with FiO2 of 40%. Afebrile overnight. Blood cultures no growth to date. Fasting glucose 120. Patient is c/o improving degree of dyspnea. c/o productive cough with clear/bloody sputum. Denies respiratory wheezing. Denies subjective fever, chills, and diaphoresis. Continue to wean oxygen as tolerated. Continue Zosyn while waiting for culture results. Pending physical therapy evaluation and treatment for placement planning. 09/17: Afebrile overnight. Patient is currently on 10 L/min of oxygen via oxygen mask. Blood cultures no growth to date. Fasting glucose 98. Patient is c/o improving degree of dyspnea. c/o productive cough with clear/bloody sputum. Denies respiratory wheezing. Denies any chest pain or palpitation. Denies subjective fever, chills, and diaphoresis. Constitutional Vitals: Vital Signs Temp Pulse Resp BP Pulse Ox O2 Del Method O2 Flow Rate 36.3 C 72 24 H 159/78 95 10 09/17/22 08:01 09/17/22 08:01 09/17/22 08:01 09/17/22 08:01 09/17/22 08:01 09/17/22 08:01 09/17/22 08:01 Period Temp Pulse Resp BP Sys/Cruz Pulse Ox O2 Del Method O2 Flow Rate Last 24 Hr 36.2 C-36.9 C 41-95 15-36 110-159/56-81 94-100 Heated High Flow Nasal Ca-Oxymask Intake and Output 09/16/22 09/17/22 09/17/22 21:59 05:59 13:59 Intake Total 340 760 50 Output Total 425 700 Balance -85 60 50 Weight 158.803 kg Intake & Output: Intake & Output 09/16/22 09/17/22 09/17/22 21:59 05:59 13:59 Intake Total 340 760 50 Output Total 425 700 Balance -85 60 50 Weight 158.803 kg Intake: IV 100 50 50 Zosyn 3.375 gm In Dextrose 5% 100 50 50 in Water 50 ml @ 100 mls/hr IV Q6H [facility] Rx#:[id number] Oral 240 710 Output: Void Amount 425 700 Other: Meal Dinner Percent of Meal Consumed 100% Feeding Ability Independent Urine Appearance Clear Clear Urine Color Dark Yellow Light Loly Urine Odor Normal Head Head exam: Present atraumatic and normal inspection Eye Eye exam: Present normal appearance ENT ENT exam: Present mucous membranes moist, normal exam and normal external ear exam Additional comments: Oxymask in place Neck Neck exam: Present normal inspection Respiratory Respiratory exam: Present rhonchi Cardiovascular Cardiovascular exam: Present normal rate and rhythm GI/Abdominal GI/Abdominal exam: Present normal bowel sounds Back Exam Back exam: Present normal inspection Neurological Exam Neurological exam: Present alert and oriented X3 Skin Skin exam: Present intact and warm Additional comments: moist OBJ DATA Labs CBC & Chem 7: 09/17/22 05:37 09/17/22 05:37 Labs: Abnormal Lab Results 09/17/22 09/17/22 09/16/22 05:37 05:37 05:38 WBC 4.0 L RBC 3.82 L Hgb 10.6 L Hct 33.6 L RDW 14.6 H Plt Count Immature Gran % (Auto) 1.8 H Neut % (Auto) Lymph % (Auto) Lymph # (Auto) 0.84 L Immature Gran # 0.07 H Glucose 111 H Calcium 8.4 L 8.1 L Alkaline Phosphatase Total Protein 5.0 L Albumin 2.5 L 2.6 L Globulin Albumin/Globulin Ratio 0.7 L 09/16/22 09/15/22 09/15/22 05:38 05:39 05:39 WBC 4.0 L RBC 3.75 L 4.20 L Hgb 10.6 L 12.0 L Hct 32.7 L 36.0 L RDW 14.6 H Plt Count 118 L 118 L Immature Gran % (Auto) 0.7 H Neut % (Auto) 89.4 H Lymph % (Auto) 14.2 L 5.3 L Lymph # (Auto) 0.57 L 0.42 L Immature Gran # Glucose 180 H Calcium Alkaline Phosphatase 148 H Total Protein Albumin 2.6 L Globulin 3.8 H Albumin/Globulin Ratio 0.7 L Meds: Medications Acetaminophen (Acetaminophen 325 Mg Tablet) 650 mg PO Q6HP PRN; Protocol PRN Reason: Per Pain Protocol/Fever > 101 Last Admin: 09/14/22 23:46 Dose: 650 mg Albuterol Sulfate (Albuterol Sulfate 200 Puff Inhaler) 2 puff INH DAILYP PRN PRN Reason: Shortness Of Breath Albuterol/Ipratropium (Ipratropium/Albuterol 3 Ml Ampul.Neb) 3 ml NEB Q4HRT PRN PRN Reason: Wheezing Last Admin: 09/15/22 07:04 Dose: 3 ml Baclofen (Baclofen 10 Mg Tablet) 10 mg PO TIDP PRN PRN Reason: MUSCLE SPASM Dextrose (Dextrose 50% 50 Ml Vial) 0 ml IV UD PRN PRN Reason: Per Sliding Scale Diagnostic Test (Pha) (Accu-Chek 1 Each Strip) 1 each FS ACHS [facility] Last Admin: 09/17/22 08:22 Dose: 1 each Diltiazem HCl (Diltiazem 120 Mg Cap.Xl.24h) 360 mg PO DAILY [facility] Last Admin: 09/17/22 08:21 Dose: 360 mg Docusate Sodium (Docusate Sodium 100 Mg Capsule) 100 mg PO BID [facility] Last Admin: 09/17/22 08:24 Dose: 100 mg Enoxaparin Sodium (Enoxaparin 40 Mg/0.4 Ml Syringe) 40 mg SQ DAILY [facility] Last Admin: 09/17/22 08:21 Dose: 40 mg Glucose (Dextrose 31 Gm Oral.Susp) 15 gm PO PRN PRN PRN Reason: Hypoglycemia Guaifenesin (Guaifenesin/Dextromethorphan Oral Ingrid) 10 ml PO Q4HP PRN PRN Reason: Cough Last Admin: 09/15/22 06:00 Dose: 10 ml Hydralazine HCl (Hydralazine 20 Mg/Ml Vial) 10 mg IV Q4-6HP PRN PRN Reason: Hypertension Piperacillin Sod/Tazobactam (Sod 3.375 gm/ Dextrose) 50 mls @ 100 mls/hr IV Q6H [facility]; Protocol Last Infusion: 09/17/22 06:36 Dose: Infused Ibuprofen (Ibuprofen 600 Mg Tablet) 600 mg PO QIDP PRN; Protocol PRN Reason: Per Pain Protocol/Fever > 101 Last Admin: 09/16/22 20:47 Dose: 600 mg Insulin Glargine (Insulin Glargine, Human 1 Unit/0.01 Ml) 50 unit SQ BID [facility] Last Admin: 09/17/22 08:21 Dose: 50 units Insulin Human Lispro (Insulin Lispro 1 Unit/0.01 Ml Unit) 0 unit SQ ACHS [facility]; Protocol Last Admin: 09/17/22 08:22 Dose: Not Given Insulin Human Lispro (Insulin Lispro 1 Unit/0.01 Ml Unit) 18 unit SQ QAMCC [facility] Last Admin: 09/17/22 08:22 Dose: 18 units Insulin Human Lispro (Insulin Lispro 1 Unit/0.01 Ml Unit) 15 unit SQ DAILY@1200 [facility] Last Admin: 09/16/22 12:51 Dose: 15 units Insulin Human Lispro (Insulin Lispro 1 Unit/0.01 Ml Unit) 30 unit SQ QPMCC [facility] Last Admin: 09/16/22 17:37 Dose: 30 units Lidocaine (Lidocaine Patch) 1 patch TOPICAL DAILYP PRN PRN Reason: Pain Lisinopril (Lisinopril 20 Mg Tablet) 40 mg PO [facility] Last Admin: 09/16/22 20:52 Dose: 40 mg Methocarbamol (Methocarbamol 750 Mg Tablet) 1 mg PO TIDP PRN PRN Reason: Pain Last Admin: 09/16/22 20:47 Dose: 1 mg Montelukast Sodium (Montelukast 10 Mg Tablet) 10 mg PO QDAY [facility] Last Admin: 09/17/22 08:22 Dose: 10 mg Ondansetron HCl (Ondansetron 4 Mg/2 Ml Vial) 4 mg IV Q6HP PRN PRN Reason: Nausea And Vomiting Polyethylene Glycol (Polyethylene Glycol 3350 17 Gm Packet) 17 gm PO BID [facility] Last Admin: 09/17/22 08:22 Dose: Not Given Senna (Sennosides 1 Tablet) 2 tab PO [facility] Last Admin: 09/16/22 20:47 Dose: 2 tab Simvastatin (Simvastatin 40 Mg Tablet) 40 mg PO [facility] Last Admin: 09/16/22 20:49 Dose: 40 mg Sodium Chloride (0.9 % Sodium Chloride 10 Ml Syringe) 10 ml IV Q8 [facility] Last Admin: 09/17/22 05:13 Dose: 10 ml Vitamin D (Vitamin D3 25 Mcg Tablet) 50 mcg PO DAILY [facility] Last Admin: 09/17/22 08:22 Dose: 50 mcg A/P Assessment and plan (1) Pneumonia: Status: Acute (2) Clinical sepsis: Status: Acute (3) Acute respiratory failure with hypoxia: Status: Acute (4) Morbid obesity: Status: Chronic (5) Stage 1 acute kidney injury: Status: Acute (6) Hyperlipidemia: Status: Chronic Comment: On losartan and now diltiazem so watch for Rx interaction (7) Essential hypertension: Status: Chronic (8) T2DM (type 2 diabetes mellitus): Status: Acute Narrative A/P Narrative: Assessment and Plans: 1. Pneumonia, failed outpatient oral antibiotics therapy with associated acute respiratory failure with hypoxia and clinical sepsis: Inpatient PCU [place] CoVID PCR negative Supplemental oxygen therapy, currently at 10L/min via oxymask Serial lactic acid 1.1 Procalcitonin 5.79 Blood culture, no growth to date cbc w/ auto diff in the morning to trend WBC Saline lock Continue Zosyn for broader antibiotics coverage while waiting for culture results Physical therapy 2. T2DM: HgA1c 6.3 Hold oral hypoglycemics Lantus 50 unit BID Meal time insulin TID AC plus Insulin Lispro SSI AC HS Accu Check AC HS Hypoglycemia protocol Diabetic diet 3. Stage 1 acute kidney injury: Avoid nephrotoxic agents; holding Lisinopril Saline lock CMP in the morning to trend kidney functions 4. Essential hypertension: Currently normotensive Diltiazem Resume Lisinopril Hydralazine 10mg IV q4-6hr PRN SBP>=180 and/or DBP>=110mmHg 5. Dyslipidemia: Continue statin therapy 6. 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
--- NOTE | 2022-09-17 15:13 | Internal Med Progress Note ---
SUBJECTIVE Subjective Patient information: Note initiated : 09/17/22 at 3:05 pm Service Date, if different from initiated Date: [] Patient: Bro Malave 57 y/o M admitted on 09/13/22 for Shortness of breath. Chief Complaint: [] Interval history: Mr. Malave is a 57 year old M history of type 2 diabetes mellitus, essential hypertension, mixed dyslipidemia, morbid obesity, presenting with 5-day history of shortness of breath and general body weakness. He is complaining of shortness of breath, general body weakness, nonproductive cough, respiratory wheezings, fever, chills, diaphoresis, for the past 5 days. His symptoms got worse yesterday, so he presented to our ED where he was being diagnosed with a left-sided pneumonia. He was being discharged home with prescriptions of Augmentin. He took the Augmentin as prescribed, but today his general body weakness got worse to the point that his leg just gave up and he could not walk and he fell. As a result, he returned back to our ED for reevaluations and treatments. Vital signs significant for tachycardia and tachypnea, and his oxygen was desaturating in the upper 80s on room air so the ER physician started him on nasal cannula oxygen's. Labs significant for lack of leukocytosis with WBC 8.4. Serum lactic acid 1.1. Saria[place] from yesterday was negative. Chest x- ray showing worsening left-sided infiltrates relative to the x-ray from yesterday. Admission request was called for sepsis associated with pneumonia failing outpatient oral antibiotic therapy. 09/14: Afebrile overnight. On 2L/min oxygen via nasal cannula. [place] pending. Blood cultures no growth to date. Fasting glucose 286. Patient is complaining of improving degree of shortness of breath. He is complain of general body weakness. He is complaining of diaphoresis. He is coming of nonproductive cough and respiratory wheezings. Continue IV fluid with empiric antibiotics Rocephin and azithromycin while waiting for culture results. Continue to monitor for [place] result. Pending physical therapy evaluation and treatment for placement planning. 09/15: Afebrile overnight. Had increased work of breathing and tachycardia with RR in the 30s earlier this morning, now better degree of dyspnea. CT angiogram chest negative for pulmonary embolism. Extensive left lung infiltrates consistent with pneumonia. [place] negative for CoVID. Blood cultures no growth to date. Fasting glucose 187. Patient is c/o improving degree of dyspnea. c/o productive cough and respiratory wheezing. c/o fever, chills, and diaphoresis. Saline lock. Switch antibiotics from Rocephin and Azithromycin to Zosyn for broader coverage. Pending physical therapy evaluation and treatment for placement planning. 09/16: Patient was transferred to inpatient PCU yesterday evening due to increased oxygen requirement. Patient is currently on high flow oxygen 35 L/min with FiO2 of 40%. Afebrile overnight. Blood cultures no growth to date. Fasting glucose 120. Patient is c/o improving degree of dyspnea. c/o productive cough with clear/bloody sputum. Denies respiratory wheezing. Denies subjective fever, chills, and diaphoresis. Continue to wean oxygen as tolerated. Continue Zosyn while waiting for culture results. Pending physical therapy evaluation and treatment for placement planning. 09/17: Afebrile overnight. Patient is currently on 10 L/min of oxygen via oxygen mask. Blood cultures no growth to date. Fasting glucose 98. Patient is c/o improving degree of dyspnea. c/o productive cough with clear/bloody sputum. Denies respiratory wheezing. Denies any chest pain or palpitation. Denies subjective fever, chills, and diaphoresis. Constitutional Vitals: Vital Signs Temp Pulse Resp BP Pulse Ox O2 Del Method O2 Flow Rate 98.0 F 72 21 136/59 94 5 09/17/22 12:51 09/17/22 12:51 09/17/22 14:01 09/17/22 14:01 09/17/22 14:01 09/17/22 14:01 09/17/22 14:01 Period Temp Pulse Resp BP Sys/Cruz Pulse Ox O2 Del Method O2 Flow Rate Last 24 Hr 97.2 F-98.4 F 41-85 15-36 110-159/56-79 94-98 High Flow Nasal Cannula-Oxymask 3-10 Intake and Output 09/17/22 09/17/22 09/17/22 05:59 13:59 21:59 Intake Total 760 580 Output Total 700 Balance 60 580 Weight 158.803 kg Patient Weight 09/18/22 05:59 Weight 158.803 kg Intake & Output: Intake & Output 09/17/22 09/17/2209/17/22 05:59 13:59 21:59 Intake Total 760 580 Output Total 700 Balance 60 580 Weight 158.803 kg Intake: IV 50 100 Zosyn 3.375 gm In Dextrose 5% 50 100 in Water 50 ml @ 100 mls/hr IV Q6H [facility] Rx#:[id number] Oral 710 480 Output: Void Amount 700 Other: Meal Breakfast Percent of Meal Consumed 100% Feeding Ability Independent Urine Appearance Clear Urine Color Light Loly Exam: General: Alert, Awake, No acute Distress, obese Eyes/N/T: EOMI, Head/Neck: neck supple, CV: RRR, No murmurs, Pulm: b/l, no wheezing/rhonchi/rales Abd: soft, nontender, +BS x4 Ext: no clubbing/cyanosis/edema Neuro: Alert, no focal deficits, moves all extremities, Skin: warm/dry OBJ DATA Labs CBC & Chem 7: 09/17/22 05:37 09/17/22 05:37 Labs: Abnormal Lab Results 09/17/22 09/17/22 09/16/22 05:37 05:37 05:38 WBC 4.0 L RBC 3.82 L Hgb 10.6 L Hct 33.6 L RDW 14.6 H Plt Count Immature Gran % (Auto) 1.8 H Neut % (Auto) Lymph % (Auto) Lymph # (Auto) 0.84 L Immature Gran # 0.07 H Glucose 111 H Calcium 8.4 L 8.1 L Alkaline Phosphatase Total Protein 5.0 L Albumin 2.5 L 2.6 L Globulin Albumin/Globulin Ratio 0.7 L 09/16/22 09/15/22 09/15/22 05:38 05:39 05:39 WBC 4.0 L RBC 3.75 L 4.20 L Hgb 10.6 L 12.0 L Hct 32.7 L 36.0 L RDW 14.6 H Plt Count 118 L 118 L Immature Gran % (Auto) 0.7 H Neut % (Auto) 89.4 H Lymph % (Auto) 14.2 L 5.3 L Lymph # (Auto) 0.57 L 0.42 L Immature Gran # Glucose 180 H Calcium Alkaline Phosphatase 148 H Total Protein Albumin 2.6 L Globulin 3.8 H Albumin/Globulin Ratio 0.7 L Meds: Medications Acetaminophen (Acetaminophen 325 Mg Tablet) 650 mg PO Q6HP PRN; Protocol PRN Reason: Per Pain Protocol/Fever > 101 Last Admin: 09/14/22 23:46 Dose: 650 mg Albuterol Sulfate (Albuterol Sulfate 200 Puff Inhaler) 2 puff INH DAILYP PRN PRN Reason: Shortness Of Breath Albuterol/Ipratropium (Ipratropium/Albuterol 3 Ml Ampul.Neb) 3 ml NEB Q4HRT PRN PRN Reason: Wheezing Last Admin: 09/15/22 07:04 Dose: 3 ml Baclofen (Baclofen 10 Mg Tablet) 10 mg PO TIDP PRN PRN Reason: MUSCLE SPASM Dextrose (Dextrose 50% 50 Ml Vial) 0 ml IV UD PRN PRN Reason: Per Sliding Scale Diagnostic Test (Pha) (Accu-Chek 1 Each Strip) 1 each FS ACHS [facility] Last Admin: 09/17/22 11:27 Dose: 1 each Diltiazem HCl (Diltiazem 120 Mg Cap.Xl.24h) 360 mg PO DAILY [facility] Last Admin: 09/17/22 08:21 Dose: 360 mg Docusate Sodium (Docusate Sodium 100 Mg Capsule) 100 mg PO BID [facility] Last Admin: 09/17/22 08:24 Dose: 100 mg Enoxaparin Sodium (Enoxaparin 40 Mg/0.4 Ml Syringe) 40 mg SQ DAILY [facility] Last Admin: 09/17/22 08:21 Dose: 40 mg Glucose (Dextrose 31 Gm Oral.Susp) 15 gm PO PRN PRN PRN Reason: Hypoglycemia Guaifenesin (Guaifenesin/Dextromethorphan Oral Ingrid) 10 ml PO Q4HP PRN PRN Reason: Cough Last Admin: 09/15/22 06:00 Dose: 10 ml Hydralazine HCl (Hydralazine 20 Mg/Ml Vial) 10 mg IV Q4-6HP PRN PRN Reason: Hypertension Piperacillin Sod/Tazobactam (Sod 3.375 gm/ Dextrose) 50 mls @ 100 mls/hr IV Q6H [facility]; Protocol Last Infusion: 09/17/22 12:54 Dose: Infused Ibuprofen (Ibuprofen 600 Mg Tablet) 600 mg PO QIDP PRN; Protocol PRN Reason: Per Pain Protocol/Fever > 101 Last Admin: 09/16/22 20:47 Dose: 600 mg Insulin Glargine (Insulin Glargine, Human 1 Unit/0.01 Ml) 50 unit SQ BID [facility] Last Admin: 09/17/22 08:21 Dose: 50 units Insulin Human Lispro (Insulin Lispro 1 Unit/0.01 Ml Unit) 0 unit SQ ACHS [facility]; Protocol Last Admin: 09/17/22 12:04 Dose: 1 units Insulin Human Lispro (Insulin Lispro 1 Unit/0.01 Ml Unit) [facility] Last Admin: 09/17/22 08:22 Dose: 18 units Insulin Human Lispro (Insulin Lispro 1 Unit/0.01 Ml Unit) 15 unit SQ DAILY@1200 [facility] Last Admin: 09/17/22 12:04 Dose: 15 units Insulin Human Lispro (Insulin Lispro 1 Unit/0.01 Ml Unit) 30 unit SQ QCC [facility] Last Admin: 09/16/22 17:37 Dose: 30 units Lidocaine (Lidocaine Patch) 1 patch TOPICAL DAILYP PRN PRN Reason: Pain Lisinopril (Lisinopril 20 Mg Tablet) 40 mg PO [facility] Last Admin: 09/16/22 20:52 Dose: 40 mg Methocarbamol (Methocarbamol 750 Mg Tablet) 1 mg PO TIDP PRN PRN Reason: Pain Last Admin: 09/16/22 20:47 Dose: 1 mg Montelukast Sodium (Montelukast 10 Mg Tablet) 10 mg PO QDAY [facility] Last Admin: 09/17/22 08:22 Dose: 10 mg Ondansetron HCl (Ondansetron 4 Mg/2 Ml Vial) 4 mg IV Q6HP PRN PRN Reason: Nausea And Vomiting Polyethylene Glycol (Polyethylene Glycol 3350 17 Gm Packet) 17 gm PO BID [facility] Last Admin: 09/17/22 08:22 Dose: Not Given Senna (Sennosides 1 Tablet) 2 tab PO [facility] Last Admin: 09/16/22 20:47 Dose: 2 tab Simvastatin (Simvastatin 40 Mg Tablet) 40 mg PO [facility] Last Admin: 09/16/22 20:49 Dose: 40 mg Sodium Chloride (0.9 % Sodium Chloride 10 Ml Syringe) 10 ml IV Q8 [facility] Last Admin: 09/17/22 12:05 Dose: 10 ml Vitamin D (Vitamin D3 25 Mcg Tablet) 50 mcg PO DAILY [facility] Last Admin: 09/17/22 08:22 Dose: 50 mcg A/P Narrative A/P Narrative: A: *PNA, failed outpatient abx -PCT elevated *Acute respiratory failure with hypoxia: -on 8L NC *Sepsis: *JAVI: 2/2 above, improved *HTN: *DM2: a1c 6.3 *Morbid obesity: BMI 42 P: -Continue Zosyn for broader antibiotics coverage while waiting for culture results -wean O2 as able -f/u pct -cont Dilt/ACEI -SSI, aspart tidac, lantus 50 bid -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
[2022-09-17] MEDS: LISINOPRIL 20 MG TABLET PO SCH (21:16)
[2022-09-17] MEDS: SENNOSIDES 1 TABLET PO SCH (21:16)
[2022-09-17] MEDS: SIMVASTATIN 40 MG TABLET PO SCH (21:18)
[2022-09-18] MEDS: 0.9 % SODIUM CHLORIDE 10 ML SYRINGE IV SCH ×5 (00:15→22:06)
[2022-09-18] MEDS: PIPERACILLIN SODIUM/TAZOBACTAM 3.375 GM in DEXTROSE 5% IN WATER 50 ML IV SCH ×4 (00:17→17:49)
[2022-09-18 06:37] LABS: Basophils # (Auto) 0.02 K/mcL (0.00-0.30); Basophils % (Auto) 0.5 % (0.0-2.0); Eosinophils # (Auto) 0.14 K/mcL (0.00-0.70); Eosinophils % (Auto) 3.2 % (0.0-7.0); Hemoglobin 10.3 g/dL (13.7-17.5); Lymphocytes # (Auto) 0.94 K/mcL (1.50-4.80); Lymphocytes % (Auto) 21.8 % (15.5-49.0); Mean Cell Volume 87.7 fL (80.0-100.0); Mean Corpuscular HGB Conc 32.2 g/dL (31.0-36.0); Mean Platelet Volume 10.9 fL (8.8-12.5); Monocytes # (Auto) 0.28 K/mcL (0.10-0.90); Monocytes % (Auto) 6.5 % (1.0-12.0); Neutrophils % (Auto) 65.9 % (38.0-78.0); Platelet Count 173 K/mcL (140-440); RBC 3.65 M/mcL (4.63-6.08); Red Cell Distribution Width 14.5 % (11.5-14.5); WBC 4.3 K/mcL (4.5-11.0)
[2022-09-18 06:39] LABS: ALT/SGPT 17 U/L (<40); AST/SGOT 18 U/L (<40); Albumin 2.2 gm/dL (3.2-5.2); Albumin/Globulin Ratio 0.6 (1.0-2.3); Alkaline Phosphatase 98 U/L (39-117); Bilirubin,Direct 0.3 mg/dL (<0.3); Bilirubin,Total 0.7 mg/dL (0.1-1.0); Blood Urea Nitrogen 10 mg/dL (6-20); Calcium 8.5 mg/dL (8.6-10.4); Carbon Dioxide 24 mmol/L (22-30); Chloride 102 mmol/L (96-108); Globulin 3.4 gm/dL (2.2-3.7); Glomerular Filtration Rate 105; Glucose 138 mg/dL (70-105); Lactate Dehydrogenase 289 U/L (135-225); Triglycerides 136 mg/dL (<150); Uric Acid 4.1 mg/dL (2.5-8.0)
[2022-09-18] MEDS: INSULIN LISPRO 1 UNIT/0.01 ML UNIT SQ SCH ×7 (07:42→22:05)
--- NOTE | 2022-09-18 08:18 | Internal Med Progress Note ---
SUBJECTIVE Subjective Patient information: Note initiated : 09/18/22 at 8:16 am Service Date, if different from initiated Date: [] Patient: Bro Malave a 57 y/o M admitted on 09/13/22 for Shortness of breath-PNA. Chief Complaint: [] Interval history: Mr. Malave is a 57 year old M history of type 2 diabetes mellitus, essential hypertension, mixed dyslipidemia, morbid obesity, presenting with 5-day history of shortness of breath and general body weakness. He is complaining of shortness of breath, general body weakness, nonproductive cough, respiratory wheezings, fever, chills, diaphoresis, for the past 5 days. His symptoms got wo rse yesterday, so he presented to our ED where he was being diagnosed with a left-sided pneumonia. He was being discharged home with prescriptions of Augmentin. He took the Augmentin as prescribed, but today his general body weakness got worse to the point that his leg just gave up and he could not walk and he fell. As a result, he returned back to our ED for reevaluations and treatments. Vital signs significant for tachycardia and tachypnea, and his oxygen was desaturating in the upper 80s on room air so the ER physician started him on nasal cannula oxygen's. Labs significant for lack of leukocytosis with WBC 8.4. Serum lactic acid 1.1. Sariah from yesterday was negative. Chest x-ray showing worsening left-sided infiltrates relative to the x-ray from yesterday. Admission request was called for sepsis associated with pneumonia failing outpatient oral antibiotic therapy. 09/14: Afebrile overnight. On 2L/min oxygen via nasal cannula. Switchback pending. Blood cultures no growth to date. Fasting glucose 286. Patient is complaining of improving degree of shortness of breath. He is complain of general body weakness. He is complaining of diaphoresis. He is coming of nonproductive cough and respiratory wheezings. Continue IV fluid with empiric antibiotics Rocephin and azithromycin while waiting for culture results. Continue to monitor for Switchback result. Pending physical therapy evaluation and treatment for placement planning. 09/15: Afebrile overnight. Had increased work of breathing and tachycardia with RR in the 30s earlier this morning, now better degree of dyspnea. CT angiogram chest negative for pulmonary embolism. Extensive left lung infiltrates consistent with pneumonia. Switchback negative for CoVID. Blood cultures no growth to date. Fasting glucose 187. Patient is c/o improving degree of dyspnea. c/o productive cough and respiratory wheezing. c/o fever, chills, and diaphoresis. Saline lock. Switch antibiotics from Rocephin and Azithromycin to Zosyn for broader coverage. Pending physical therapy evaluation and treatment for placement planning. 09/16: Patient was transferred to inpatient PCU yesterday evening due to increased oxygen requirement. Patient is currently on high flow oxygen 35 L/min with FiO2 of 40%. Afebrile overnight. Blood cultures no growth to date. Fasting glucose 120. Patient is c/o improving degree of dyspnea. c/o productive cough with clear/bloody sputum. Denies respiratory wheezing. Denies subjective fever, chills, and diaphoresis. Continue to wean oxygen as tolerated. Continue Zosyn while waiting for culture results. Pending physical therapy evaluation and treatment for placement planning. 09/17: Afebrile overnight. Patient is currently on 10 L/min of oxygen via oxygen mask. Blood cultures no growth to date. Fasting glucose 98. Patient is c/o improving degree of dyspnea. c/o productive cough with clear/bloody sputum. Denies respiratory wheezing. Denies any chest pain or palpitation. Denies subjective fever, chills, and diaphoresis. 09/18 Patient seems to feel a bit better today. Patient was on 8 to 10 L oxygen yesterday and down to 4 today. Feels his breathing is improving. Patient has cough but he feels that started improved. Shortness of breath still present but waxes and wanes but overall improved from admit. mild headache Review of Systems: denies fever/chills/nausea/vomiting/chest or abdominal pain/diarrhea. Otherwise see above. Constitutional Vitals: Vital Signs Temp Pulse Resp BP Pulse Ox O2 Del Method O2 Flow Rate 97.5 F 69 20 158/78 95 4 09/18/22 08:01 09/18/22 08:01 09/18/22 08:01 09/18/22 08:01 09/18/22 08:01 09/18/22 08:01 09/18/22 08:01 Period Temp Pulse Resp BP Sys/Cruz Pulse Ox O2 Del Method O2 Flow Rate Last 24 Hr 97.1 F-98.0 F 37-85 19-29 127-185/59-87 92-98 High Flow Nasal Cannula-Room Air 3-8 Intake and Output 09/17/22 09/18/22 09/18/22 21:59 05:59 13:59 Intake Total 1010 410 500 Output Total 625 550 Balance 385 -140 500 Weight 160.662 kg Intake & Output: Intake & Output 09/17/22 09/18/22 09/18/22 21:59 05:59 13:59 Intake Total 1010 410 500 Output Total 625 550 Balance 385 -140 500 Weight 160.662 kg Intake: IV 50 50 50 Zosyn 3.375 gm In Dextrose 5% 50 50 50 in Water 50 ml @ 100 mls/hr IV Q6H [facility] Rx#:[id number] Oral 960 360 450 Output: Void Amount 625 550 Other: Meal Dinner Percent of Meal Consumed 100% Urine Appearance Clear Clear Urine Color Dark Yellow Dark Yellow Urine Odor Normal Normal Exam: General: Alert, Awake, No acute Distress, obese Eyes/N/T: EOMI, Head/Neck: neck supple, CV: irreg, No murmurs, Pulm: Rales left base mild on the right, no wheezing/rhonchi/rales Abd: soft, nontender, +BS x4 Ext: no clubbing/cyanosis, mild edema Neuro: Alert, no focal deficits, moves all extremities, Skin: warm/dry OBJ DATA Labs CBC & Chem 7: 09/18/22 05:31 09/18/22 05:31 Labs: Abnormal Lab Results 09/18/22 09/18/22 09/18/22 05:31 05:31 05:31 WBC 4.3 L RBC 3.65 L Hgb 10.3 L Hct 32.0 L RDW Plt Count Immature Gran % (Auto) 2.1 H Lymph % (Auto) Lymph # (Auto) 0.94 L Immature Gran # 0.09 H Glucose 138 H Calcium 8.5 L Direct Bilirubin 0.3 H Lactate Dehydrogenase 289 H Total Protein 5.6 L Albumin 2.2 L Albumin/Globulin Ratio 0.6 L Procalcitonin 0.30 H 09/17/22 09/17/22 09/16/22 05:37 05:37 05:38 WBC 4.0 L RBC 3.82 L Hgb 10.6 L Hct 33.6 L RDW 14.6 H Plt Count Immature Gran % (Auto) 1.8 H Lymph % (Auto) Lymph # (Auto) 0.84 L Immature Gran # 0.07 H Glucose 111 H Calcium 8.4 L 8.1 L Direct Bilirubin Lactate Dehydrogenase Total Protein 5.0 L Albumin 2.5 L 2.6 L Albumin/Globulin Ratio 0.7 L Procalcitonin 09/16/22 05:38 WBC 4.0 L RBC 3.75 L Hgb 10.6 L Hct 32.7 L RDW 14.6 H Plt Count 118 L Immature Gran % (Auto) 0.7 H Lymph % (Auto) 14.2 L Lymph # (Auto) 0.57 L Immature Gran # Glucose Calcium Direct Bilirubin Lactate Dehydrogenase Total Protein Albumin Albumin/Globulin Ratio Procalcitonin Meds: Medications Acetaminophen (Acetaminophen 325 Mg Tablet) 650 mg PO Q6HP PRN; Protocol PRN Reason: Per Pain Protocol/Fever > 101 Last Admin: 09/14/22 23:46 Dose: 650 mg Albuterol Sulfate (Albuterol Sulfate 200 Puff Inhaler) 2 puff INH DAILYP PRN PRN Reason: Shortness Of Breath Albuterol/Ipratropium (Ipratropium/Albuterol 3 Ml Ampul.Neb) 3 ml NEB Q4HRT PRN PRN Reason: Wheezing Last Admin: 09/15/22 07:04 Dose: 3 ml Baclofen (Baclofen 10 Mg Tablet) 10 mg PO TIDP PRN PRN Reason: MUSCLE SPASM Dextrose (Dextrose 50% 50 Ml Vial) 0 ml IV UD PRN PRN Reason: Per Sliding Scale Diagnostic Test (Pha) (Accu-Chek 1 Each Strip) 1 each FS ACHS [facility] Last Admin: 09/18/22 07:41 Dose: 1 each Diltiazem HCl (Diltiazem 120 Mg Cap.Xl.24h) 360 mg PO DAILY [facility] Last Admin: 09/17/22 08:21 Dose: 360 mg Docusate Sodium (Docusate Sodium 100 Mg Capsule) 100 mg PO BID [facility] Last Admin: 09/17/22 21:16 Dose: 100 mg Enoxaparin Sodium (Enoxaparin 40 Mg/0.4 Ml Syringe) 40 mg SQ DAILY [facility] Last Admin: 09/17/22 08:21 Dose: 40 mg Glucose (Dextrose 31 Gm Oral.Susp) 15 gm PO PRN PRN PRN Reason: Hypoglycemia Guaifenesin (Guaifenesin/Dextromethorphan Oral Ingrid) 10 ml PO Q4HP PRN PRN Reason: Cough Last Admin: 09/15/22 06:00 Dose: 10 ml Hydralazine HCl (Hydralazine 20 Mg/Ml Vial) 10 mg IV Q4-6HP PRN PRN Reason: Hypertension Piperacillin Sod/Tazobactam (Sod 3.375 gm/ Dextrose) 50 mls @ 100 mls/hr IV Q6H [facility]; Protocol Last Infusion: 09/18/22 06:33 Dose: Infused Ibuprofen (Ibuprofen 600 Mg Tablet) 600 mg PO QIDP PRN; Protocol PRN Reason: Per Pain Protocol/Fever > 101 Last Admin: 09/16/22 20:47 Dose: 600 mg Insulin Glargine (Insulin Glargine, Human 1 Unit/0.01 Ml) 50 unit SQ BID [facility] Last Admin: 09/17/22 21:17 Dose: 50 units Insulin Human Lispro (Insulin Lispro 1 Unit/0.01 Ml Unit) 0 unit SQ [facility]; Protocol Last Admin: 09/18/22 07:42 Dose: Not Given Insulin Human Lispro (Insulin Lispro 1 Unit/0.01 Ml Unit) [facility] Last Admin: 09/17/22 08:22 Dose: 18 units Insulin Human Lispro (Insulin Lispro 1 Unit/0.01 Ml Unit) 15 unit SQ DAILY@1200 [facility] Last Admin: 09/17/22 12:04 Dose: 15 units Insulin Human Lispro (Insulin Lispro 1 Unit/0.01 Ml Unit) [facility] Last Admin: 09/17/22 17:08 Dose: 30 units Lidocaine (Lidocaine Patch) 1 patch TOPICAL DAILYP PRN PRN Reason: Pain Lisinopril (Lisinopril 20 Mg Tablet) 40 mg PO HS [facility] Last Admin: 09/17/22 21:16 Dose: 40 mg Methocarbamol (Methocarbamol 750 Mg Tablet) 1 mg PO TIDP PRN PRN Reason: Pain Last Admin: 09/16/22 20:47 Dose: 1 mg Montelukast Sodium (Montelukast 10 Mg Tablet) 10 mg PO QDAY [facility] Last Admin: 09/17/22 08:22 Dose: 10 mg Ondansetron HCl (Ondansetron 4 Mg/2 Ml Vial) 4 mg IV Q6HP PRN PRN Reason: Nausea And Vomiting Polyethylene Glycol (Polyethylene Glycol 3350 17 Gm Packet) 17 gm PO BID [facility] Last Admin: 09/17/22 21:18 Dose: 17 gm Senna (Sennosides 1 Tablet) 2 tab PO HS [facility] Last Admin: 09/17/22 21:16 Dose: 2 tab Simvastatin (Simvastatin 40 Mg Tablet) 40 mg PO HS [facility] Last Admin: 09/17/22 21:18 Dose: 40 mg Sodium Chloride (0.9 % Sodium Chloride 10 Ml Syringe) 10 ml IV Q8 [facility] Last Admin: 09/18/22 06:34 Dose: 10 ml Vitamin D (Vitamin D3 25 Mcg Tablet) 50 mcg PO DAILY [facility] Last Admin: 09/17/22 08:22 Dose: 50 mcg A/P Narrative A/P Narrative: A: *PNA, failed outpatient abx -PCT elevated but improving -covid neg *Acute respiratory failure with hypoxia: -down to 4L NC *Sepsis: improving *JAVI: 2/2 above, improved *Anemia, chronic: *HTN: *DM2: a1c 6.3 *Morbid obesity: BMI 42 P: -Continue Zosyn for broader antibiotics coverage while waiting for culture results -wean O2 as able -IS/Acapella -f/u cxr -f/u pct -EKG for irregular rhythm -cont Dilt/ACEI -SSI, aspart tidac, lantus 50 bid -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
[2022-09-18] MEDS: INSULIN GLARGINE, HUMAN 1 UNIT/0.01 ML SQ SCH ×2 (10:08→22:01)
[2022-09-18] MEDS: ENOXAPARIN 40 MG/0.4 ML SYRINGE SQ SCH (10:08)
[2022-09-18] MEDS: POLYETHYLENE GLYCOL 3350 17 GM PACKET PO SCH ×2 (10:09→22:03)
[2022-09-18] MEDS: DILTIAZEM 120 MG CAP.XL.24H PO SCH (10:09)
[2022-09-18] MEDS: VITAMIN D3 25 MCG TABLET PO SCH (10:10)
[2022-09-18] MEDS: MONTELUKAST 10 MG TABLET PO SCH (10:10)
[2022-09-18] MEDS: DOCUSATE SODIUM 100 MG CAPSULE PO SCH ×2 (10:10→22:01)
--- NOTE | 2022-09-18 11:01 | XRay Report ---
CLINICAL INFORMATION: Follow-up left infiltrate COMPARISON: 09/05/2022 TECHNIQUE: Portable FINDINGS: The heart size, mediastinum and pulmonary vessels are unremarkable. Moderate infiltrate in the left upper/midlung show slight improved aeration when compared to exam five days ago. Minor right basilar atelectasis noted. There are no effusions. The bones and soft tissues are within normal limits. IMPRESSION: Moderate left upper/midlung infiltrate-improved aeration Interpreted and Authenticated by: Chi Estes 09/18/22
--- NOTE | 2022-09-18 13:02 | EKG ---
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
--- NOTE | 2022-09-18 13:32 | Discharge Summary ---
Discharge Provider Provider IMPORTANT FOLLOW-UP INFORMATION FOR PCP: Patient information: Note initiated : 09/18/22 at 1:30 pm Service Date, if different from initiated Date: [] Patient: Bro Malave 57 y/o M admitted on 09/13/22 for Shortness of breath-PNA. Chief Complaint: [] Date of admission: 09/13/22 21:10 Discharge date: 09/19/22 Primary care physician: Jackie Wong PA-C Consults: 09/13/22 Consult to Physician [CONS] Stat Comment: Consulting Provider: Wei Layton Reason For Exam: Physician to Consult COURSE Hospital Course Hospital course: Interval history: Mr. Malave is a 57 year old M history of type 2 diabetes mellitus, essential hypertension, mixed dyslipidemia, morbid obesity, presenting with 5-day history of shortness of breath and general body weakness. He is complaining of shortness of breath, general body weakness, nonproductive cough, respiratory wheezings, fever, chills, diaphoresis, for the past 5 days. His symptoms got worse yesterday, so he presented to our ED where he was being diagnosed with a left-sided pneumonia. He was being discharged home with prescriptions of Augmentin. He took the Augmentin as prescribed, but today his general body weakness got worse to the point that his leg just gave up and he could not walk and he fell. As a result, he returned back to our ED for reevaluations and treatments. Vital signs significant for tachycardia and tachypnea, and his oxygen was desaturating in the upper 80s on room air so the ER physician started him on nasal cannula oxygen's. Labs significant for lack of leukocytosis with WBC 8.4. Serum lactic acid 1.1. Sariah from yesterday was negative. Chest x- ray showing worsening left-sided infiltrates relative to the x-ray from yesterday. Admission request was called for sepsis associated with pneumonia failing outpatient oral antibiotic therapy. 09/14: Afebrile overnight. On 2L/min oxygen via nasal cannula. [place] pending. Blood cultures no growth to date. Fasting glucose 286. Patient is complaining of improving degree of shortness of breath. He is complain of general body weakness. He is complaining of diaphoresis. He is coming of nonproductive cough and respiratory wheezings. Continue IV fluid with empiric antibiotics Rocephin and azithromycin while waiting for culture results. Continue to monitor for [place] result. Pending physical therapy evaluation and treatment for placement planning. 09/15: Afebrile overnight. Had increased work of breathing and tachycardia with RR in the 30s earlier this morning, now better degree of dyspnea. CT angiogram chest negative for pulmonary embolism. Extensive left lung infiltrates consistent with pneumonia. [place] negative for CoVID. Blood cultures no growth to date. Fasting glucose 187. Patient is c/o improving degree of dyspnea. c/o productive cough and respiratory wheezing. c/o fever, chills, and diaphoresis. Saline lock. Switch antibiotics from Rocephin and Azithromycin to Zosyn for broader coverage. Pending physical therapy evaluation and treatment for placement planning. 09/16: Patient was transferred to inpatient PCU yesterday evening due to increased oxygen requirement. Patient is currently on high flow oxygen 35 L/min with FiO2 of 40%. Afebrile overnight. Blood cultures no growth to date. Fasting glucose 120. Patient is c/o improving degree of dyspnea. c/o productive cough with clear/bloody sputum. Denies respiratory wheezing. Denies subjective fever, chills, and diaphoresis. Continue to wean oxygen as tolerated. Continue Zosyn while waiting for culture results. Pending physical therapy evaluation and treatment for placement planning. 09/17: Afebrile overnight. Patient is currently on 10 L/min of oxygen via oxygen mask. Blood cultures no growth to date. Fasting glucose 98. Patient is c/o improving degree of dyspnea. c/o productive cough with clear/bloody sputum. Denies respiratory wheezing. Denies any chest pain or palpitation. Denies subjective fever, chills, and diaphoresis. 09/18 Patient seems to feel a bit better today. Patient was on 8 to 10 L oxygen yesterday and down to 4 today. Feels his breathing is improving. Patient has cough but he feels that started improved. Shortness of breath still present but waxes and wanes but overall improved from admit. mild headache 09/19 Cardiac auscultation sounded little irregular yesterday, obtained EKG which showed sinus with occasional sinus arrhythmia. Significant urine output yesterday with Lasix. Patient continues to feel better and breathing better. Trial off oxygen while is in the room. He does dip into the 80s for second but with deep breaths it comes right back up in the mid 90s. We will monitor on this for some time. 1 more dose for Lasix he still does have a little bit of edema see if that does not help even more with breathing. Patient has been on room air since this morning when I saw him. Patient stable for discharge. A: *PNA, failed outpatient abx *Acute respiratory failure with hypoxia: *Sepsis: improving *JAVI: 2/2 above, improved *Anemia, chronic: *HTN: *DM2: a1c 6.3 *Morbid obesity: BMI 42 P: -abx Discharge diagnosis: Pneumonia acute hypoxic respite failure sepsis Secondary discharge diagnosis: JAVI chronic anemia hypertension diabetes obesity Time Spent with Patient Time attestation: Total time spent providing and/or coordinating discharge services: Time spent: Greater than 30 minutes EXAM Constitutional Vitals: Temp Pulse Resp BP Pulse Ox O2 Del Method O2 Flow Rate 97.3 F 69 24 H 173/68 94 4 09/18/22 12:01 09/18/22 08:01 09/18/22 12:01 09/18/22 12:01 09/18/22 12:01 09/18/22 12:01 09/18/22 12:01 Discharge Data Data Completed and Pending Labs on day of discharge: Labs from last 24 hours 09/18/22 09/18/22 09/18/22 05:31 05:31 05:31 WBC 4.3 L RBC 3.65 L Hgb 10.3 L Hct 32.0 L MCV 87.7 MCH 28.2 MCHC 32.2 RDW 14.5 Plt Count 173 MPV 10.9 Immature Gran % (Auto) 2.1 H Neut % (Auto) 65.9 Lymph % (Auto) 21.8 Wetzel % (Auto) 6.5 Eos % (Auto) 3.2 Baso % (Auto) 0.5 Lymph # (Auto) 0.94 L Wetzel # (Auto) 0.28 Eos # (Auto) 0.14 Baso # (Auto) 0.02 Immature Gran # 0.09 H Absolute Neutrophils 2.84 Sodium 136 Potassium 3.7 Chloride 102 Carbon Dioxide 24 Anion Gap 10.0 BUN 10 Creatinine 0.7 GFR Calculation 105 Glucose 138 H Uric Acid 4.1 Calcium 8.5 L Phosphorus 3.0 Magnesium 1.6 Total Bilirubin 0.7 Direct Bilirubin 0.3 H GGT 30 AST 18 ALT 17 Alkaline Phosphatase 98 Lactate Dehydrogenase 289 H Total Protein 5.6 L Albumin 2.2 L Globulin 3.4 Albumin/Globulin Ratio 0.6 L Triglycerides 136 Procalcitonin 0.30 H Preliminary micro results at discharge 09/13/22 17:50 Blood Culture - Preliminary Blood Discharge Plan Patient/Caregiver Discharge Instructions Activity: increase activity as tolerated Diet: Consistent Carbohydrate Prescriptions: New cefdinir 300 mg capsule 300 mg PO BID Qty: 3 0RF Continued insulin aspart U-100 [Novolog Flexpen U-100 Insulin] 100 unit/mL (3 mL) insulin pen See Rx Instructions .ROUTE .COMPLEX Rx Instructions: 18 units breakfast; 15 units lunch ; 30 dinner; albuterol sulfate 90 mcg/actuation aerosol powdr breath activated 2 inh inhalation PRN PRN (Reason: Respiratory Distress) Tresiba FlexTouch U-100 100 unit/mL (3 mL) insulin pen 50 unit subcut BID Jardiance 10 mg tablet 10 mg PO QAM Qty: 30 11RF cholecalciferol (vitamin D3) 50 mcg (2,000 unit) capsule 50 mcg PO QDAY diltiazem HCl 360 mg capsule,extended release 24hr 360 mg PO QAM Qty: 90 3RF polyethylene glycol 3350 [Miralax] 17 gram/dose powder 17 g PO BID Qty: 238 0RF metformin 500 MG tablet 1,000 mg PO BIDCC lisinopril 40 MG tablet 40 mg PO HS simvastatin 40 mg Tablet 40 mg PO QDAY montelukast 10 mg Tablet 10 mg PO QDAY lidocaine [Lidoderm] 5 % adhesive patch,medicated 1 patch topical QDAY PRN (Reason: pain) Qty: 7 0RF Rx Instructions: leave on most painful area for up to 12 hrs baclofen tablet 10 mg PO TIDP PRN (Reason: Pain) methocarbamol 750 mg tablet 1 tab PO TIDP PRN (Reason: Pain) Discontinued Augmentin 875 mg PO BID azithromycin tablet 250 mg PO DAILY Follow Up Plan Follow up with: Jackie Wong PA-C [Primary Care Provider] - Patient Disposition: Home, Self-Care Prognosis: Fair Overall status at discharge: patient is progressing back to baseline Discharge Orders: Discharge Order (Routine); Ordered 09/19/22 Ordered By: Song Barbosa [facility] VTE Deep Vein Thrombosis/Pulmonary Embolism Present on Admission: No
[2022-09-18] MEDS ORDERED: FUROSEMIDE 20 MG/2 ML VIAL IV ONE ×2 (20:10)
[2022-09-18] MEDS ORDERED: ALBUMIN HUMAN 12.5 GM/50 ML BAG IV ONE (20:12)
[2022-09-18] MEDS: LISINOPRIL 20 MG TABLET PO SCH (22:01)
[2022-09-18] MEDS: SENNOSIDES 1 TABLET PO SCH (22:01)
[2022-09-18] MEDS: SIMVASTATIN 40 MG TABLET PO SCH (22:06)
[2022-09-19] MEDS: 0.9 % SODIUM CHLORIDE 10 ML SYRINGE IV SCH ×3 (00:07→14:18)
[2022-09-19] MEDS: PIPERACILLIN SODIUM/TAZOBACTAM 3.375 GM in DEXTROSE 5% IN WATER 50 ML IV SCH ×2 (00:07→06:02)
--- NOTE | 2022-09-19 07:47 | Internal Med Progress Note ---
SUBJECTIVE Subjective Patient information: Note initiated : 09/19/22 at 7:42 am Service Date, if different from initiated Date: [] Patient: Bro Malave a 57 y/o M admitted on 09/13/22 for Shortness of breath-PNA. Chief Complaint: [] Interval history: Mr. Malave is a 57 year old M history of type 2 diabetes mellitus, essential hypertension, mixed dyslipidemia, morbid obesity, presenting with 5-day history of shortness of breath and general body weakness. He is complaining of shortness of breath, general body weakness, nonproductive cough, respiratory wheezings, fever, chills, diaphoresis, for the past 5 days. His symptoms got wo rse yesterday, so he presented to our ED where he was being diagnosed with a left-sided pneumonia. He was being discharged home with prescriptions of Augmentin. He took the Augmentin as prescribed, but today his general body weakness got worse to the point that his leg just gave up and he could not walk and he fell. As a result, he returned back to our ED for reevaluations and treatments. Vital signs significant for tachycardia and tachypnea, and his oxygen was desaturating in the upper 80s on room air so the ER physician started him on nasal cannula oxygen's. Labs significant for lack of leukocytosis with WBC 8.4. Serum lactic acid 1.1. Sariah from yesterday was negative. Chest x-ray showing worsening left-sided infiltrates relative to the x-ray from yesterday. Admission request was called for sepsis associated with pneumonia failing outpatient oral antibiotic therapy. 09/14: Afebrile overnight. On 2L/min oxygen via nasal cannula. [place] pending. Blood cultures no growth to date. Fasting glucose 286. Patient is complaining of improving degree of shortness of breath. He is complain of general body weakness. He is complaining of diaphoresis. He is coming of nonproductive cough and respiratory wheezings. Continue IV fluid with empiric antibiotics Rocephin and azithromycin while waiting for culture results. Continue to monitor for [place] result. Pending physical therapy evaluation and treatment for placement planning. 09/15: Afebrile overnight. Had increased work of breathing and tachycardia with RR in the 30s earlier this morning, now better degree of dyspnea. CT angiogram chest negative for pulmonary embolism. Extensive left lung infiltrates consistent with pneumonia. [place] negative for CoVID. Blood cultures no growth to date. Fasting glucose 187. Patient is c/o improving degree of dyspnea. c/o productive cough and respiratory wheezing. c/o fever, chills, and diaphoresis. Saline lock. Switch antibiotics from Rocephin and Azithromycin to Zosyn for broader coverage. Pending physical therapy evaluation and treatment for placement planning. 09/16: Patient was transferred to inpatient PCU yesterday evening due to increased oxygen requirement. Patient is currently on high flow oxygen 35 L/min with FiO2 of 40%. Afebrile overnight. Blood cultures no growth to date. Fasting glucose 120. Patient is c/o improving degree of dyspnea. c/o productive cough with clear/bloody sputum. Denies respiratory wheezing. Denies subjective fever, chills, and diaphoresis. Continue to wean oxygen as tolerated. Continue Zosyn while waiting for culture results. Pending physical therapy evaluation and treatment for placement planning. 09/17: Afebrile overnight. Patient is currently on 10 L/min of oxygen via oxygen mask. Blood cultures no growth to date. Fasting glucose 98. Patient is c/o improving degree of dyspnea. c/o productive cough with clear/bloody sputum. Denies respiratory wheezing. Denies any chest pain or palpitation. Denies subjective fever, chills, and diaphoresis. 09/18 Patient seems to feel a bit better today. Patient was on 8 to 10 L oxygen yesterday and down to 4 today. Feels his breathing is improving. Patient has cough but he feels that started improved. Shortness of breath still present but waxes and wanes but overall improved from admit. mild headache 09/19 Cardiac auscultation sounded little irregular yesterday, obtained EKG which showed sinus with occasional sinus arrhythmia. Significant urine output yesterday with Lasix. Patient continues to feel better and breathing better. Trial off oxygen while is in the room. He does dip into the 80s for second but with deep breaths it comes right back up in the mid 90s. We will monitor on this for some time. 1 more dose for Lasix he still does have a little bit of edema see if that does not help even more with breathing. Review of Systems: denies fever/chills/nausea/vomiting/chest or abdominal pain/diarrhea. Otherwise see above. Constitutional Vitals: Vital Signs Temp Pulse Resp BP Pulse Ox O2 Del Method O2 Flow Rate 98.2 F 71 16 141/65 94 2 09/19/22 04:01 09/19/22 06:01 09/19/22 06:01 09/19/22 06:01 09/19/22 06:01 09/19/22 06:01 09/19/22 06:01 Period Temp Pulse Resp BP Sys/Cruz Pulse Ox O2 Del Method O2 Flow Rate Last 24 Hr 97.3 F-98.6 F 67-75 16-24 140-205/65-97 90-97 Nasal Cannula- Nasal Cannula 1-4 Intake and Output 09/18/22 09/19/22 09/19/22 21:59 05:59 13:59 Intake Total 960 880 50 Output Total 425 4800 Balance 535 -3920 50 Weight 161.751 kg Intake & Output: Intake & Output 09/18/22 09/19/22 09/19/22 21:59 05:59 13:59 Intake Total 960 880 50 Output Total 425 4800 Balance 535 -3920 50 Weight 161.751 kg Intake: IV 50 100 50 Zosyn 3.375 gm In Dextrose 5% 50 50 50 in Water 50 ml @ 100 mls/hr IV Q6H [facility] Rx#:[id number] Oral 910 780 Output: Void Amount 425 4800 Other: Meal Dinner Percent of Meal Consumed 100% Feeding Ability Assist with Tray Set Up Urine Appearance Clear Clear Urine Color Yellow Pale Urine Odor Normal Stool Size Copious Moderate Stool Color Brown Brown Stool Consistency Soft Soft Formed # Voids 1 # Bowel Movements 1 Exam: General: Alert, Awake, No acute Distress, obese Eyes/N/T: EOMI, Head/Neck: neck supple, CV: irreg, No murmurs, Pulm: much improved bibasilar rales, no wheezing/rhonchi Abd: soft, nontender, +BS x4 Ext: no clubbing/cyanosis, mild b/l edema Neuro: Alert, no focal deficits, moves all extremities, Skin: warm/dry OBJ DATA Labs CBC & Chem 7: 09/18/22 05:31 09/18/22 05:31 Labs: Abnormal Lab Results 09/18/22 09/18/22 09/18/22 05:31 05:31 05:31 WBC 4.3 L RBC 3.65 L Hgb 10.3 L Hct 32.0 L RDW Immature Gran % (Auto) 2.1 H Lymph # (Auto) 0.94 L Immature Gran # 0.09 H Glucose 138 H Calcium 8.5 L Direct Bilirubin 0.3 H Lactate Dehydrogenase 289 H Total Protein 5.6 L Albumin 2.2 L Albumin/Globulin Ratio 0.6 L Procalcitonin 0.30 H 09/17/22 09/17/22 05:37 05:37 WBC 4.0 L RBC 3.82 L Hgb 10.6 L Hct 33.6 L RDW 14.6 H Immature Gran % (Auto) 1.8 H Lymph # (Auto) 0.84 L Immature Gran # 0.07 H Glucose Calcium 8.4 L Direct Bilirubin Lactate Dehydrogenase Total Protein Albumin 2.5 L Albumin/Globulin Ratio 0.7 L Procalcitonin Meds: Medications Acetaminophen (Acetaminophen 325 Mg Tablet) 650 mg PO Q6HP PRN; Protocol PRN Reason: Per Pain Protocol/Fever > 101 Last Admin: 09/14/22 23:46 Dose: 650 mg Albuterol Sulfate (Albuterol Sulfate 200 Puff Inhaler) 2 puff INH DAILYP PRN PRN Reason: Shortness Of Breath Albuterol/Ipratropium (Ipratropium/Albuterol 3 Ml Ampul.Neb) 3 ml NEB Q4HRT PRN PRN Reason: Wheezing Last Admin: 09/15/22 07:04 Dose: 3 ml Baclofen (Baclofen 10 Mg Tablet) 10 mg PO TIDP PRN PRN Reason: MUSCLE SPASM Dextrose (Dextrose 50% 50 Ml Vial) 0 ml IV UD PRN PRN Reason: Per Sliding Scale Diagnostic Test (Pha) (Accu-Chek 1 Each Strip) 1 each FS ACHS [facility] Last Admin: 09/19/22 04:45 Dose: 1 each Diltiazem HCl (Diltiazem 120 Mg Cap.Xl.24h) 360 mg PO DAILY [facility] Last Admin: 09/18/22 10:09 Dose: 360 mg Docusate Sodium (Docusate Sodium 100 Mg Capsule) 100 mg PO BID [facility] Last Admin: 09/18/22 22:01 Dose: 100 mg Enoxaparin Sodium (Enoxaparin 40 Mg/0.4 Ml Syringe) 40 mg SQ DAILY [facility] Last Admin: 09/18/22 10:08 Dose: 40 mg Glucose (Dextrose 31 Gm Oral.Susp) 15 gm PO PRN PRN PRN Reason: Hypoglycemia Guaifenesin (Guaifenesin/Dextromethorphan Oral Ingrid) 10 ml PO Q4HP PRN PRN Reason: Cough Last Admin: 09/15/22 06:00 Dose: 10 ml Hydralazine HCl (Hydralazine 20 Mg/Ml Vial) 10 mg IV Q4-6HP PRN PRN Reason: Hypertension Piperacillin Sod/Tazobactam (Sod 3.375 gm/ Dextrose) 50 mls @ 100 mls/hr IV Q6H [facility]; Protocol Last Infusion: 09/19/22 07:29 Dose: Infused Ibuprofen (Ibuprofen 600 Mg Tablet) 600 mg PO QIDP PRN; Protocol PRN Reason: Per Pain Protocol/Fever > 101 Last Admin: 09/16/22 20:47 Dose: 600 mg Insulin Glargine (Insulin Glargine, Human 1 Unit/0.01 Ml) 50 unit SQ BID [facility] Last Admin: 09/18/22 22:01 Dose: 50 units Insulin Human Lispro (Insulin Lispro 1 Unit/0.01 Ml Unit) 0 unit SQ [facility]; Protocol Last Admin: 09/18/22 22:05 Dose: Not Given Insulin Human Lispro (Insulin Lispro 1 Unit/0.01 Ml Unit) [facility] Last Admin: 09/18/22 10:09 Dose: 18 units Insulin Human Lispro (Insulin Lispro 1 Unit/0.01 Ml Unit) 15 unit SQ DAILY@1200 [facility] Last Admin: 09/18/22 11:44 Dose: 15 units Insulin Human Lispro (Insulin Lispro 1 Unit/0.01 Ml Unit) [facility] Last Admin: 09/18/22 16:52 Dose: 30 units Lidocaine (Lidocaine Patch) 1 patch TOPICAL DAILYP PRN PRN Reason: Pain Lisinopril (Lisinopril 20 Mg Tablet) 40 mg PO [facility] Last Admin: 09/18/22 22:01 Dose: 40 mg Methocarbamol (Methocarbamol 750 Mg Tablet) 1 mg PO TIDP PRN PRN Reason: Pain Last Admin: 09/16/22 20:47 Dose: 1 mg Montelukast Sodium (Montelukast 10 Mg Tablet) 10 mg PO QDAY [facility] Last Admin: 09/18/22 10:10 Dose: 10 mg Ondansetron HCl (Ondansetron 4 Mg/2 Ml Vial) 4 mg IV Q6HP PRN PRN Reason: Nausea And Vomiting Polyethylene Glycol (Polyethylene Glycol 3350 17 Gm Packet) 17 gm PO BID [facility] Last Admin: 09/18/22 22:03 Dose: 17 gm Senna (Sennosides 1 Tablet) 2 tab PO HS [facility] Last Admin: 09/18/22 22:01 Dose: 2 tab Simvastatin (Simvastatin 40 Mg Tablet) 40 mg PO HS [facility] Last Admin: 09/18/22 22:06 Dose: 40 mg Sodium Chloride (0.9 % Sodium Chloride 10 Ml Syringe) 10 ml IV Q8 [facility] Last Admin: 09/19/22 06:02 Dose: 10 ml Vitamin D (Vitamin D3 25 Mcg Tablet) 50 mcg PO DAILY [facility] Last Admin: 09/18/22 10:10 Dose: 50 mcg A/P Narrative A/P Narrative: A: *PNA, failed outpatient abx -PCT elevated but now improved -covid neg *Acute respiratory failure with hypoxia: -down to 0-1L NC *Sepsis: improving *JAVI: 2/2 above, improved *Anemia, chronic: *HTN: *DM2: a1c 6.3 *Morbid obesity: BMI 42 P: -rocephin -wean O2 as able -IS/Acapella -cont Dilt/ACEI -SSI, aspart tidac, lantus 50 bid -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
[2022-09-19] MEDS: INSULIN LISPRO 1 UNIT/0.01 ML UNIT SQ SCH ×5 (07:59→16:48)
[2022-09-19] MEDS: ENOXAPARIN 40 MG/0.4 ML SYRINGE SQ SCH (09:03)
[2022-09-19] MEDS: INSULIN GLARGINE, HUMAN 1 UNIT/0.01 ML SQ SCH (09:03)
[2022-09-19] MEDS: DILTIAZEM 120 MG CAP.XL.24H PO SCH (09:04)
[2022-09-19] MEDS: VITAMIN D3 25 MCG TABLET PO SCH (09:04)
[2022-09-19] MEDS: MONTELUKAST 10 MG TABLET PO SCH (09:05)
[2022-09-19] MEDS: DOCUSATE SODIUM 100 MG CAPSULE PO SCH (09:30)
[2022-09-19] MEDS: POLYETHYLENE GLYCOL 3350 17 GM PACKET PO SCH (09:30)
[2022-09-19] MEDS ORDERED: FUROSEMIDE 40 MG/4 ML VIAL IV ONE (10:25)
[2022-09-19] MEDS ORDERED: ALBUMIN HUMAN 12.5 GM/50 ML BAG IV ONE (10:25)
[2022-09-19] MEDS ORDERED: AZITHROMYCIN 500 MG in DEXTROSE 5% IN WATER 250 ML IV ONE (11:00)
[2022-09-19] MEDS ORDERED: cefTRIAXone 2 GM in DEXTROSE 5% IN WATER 50 ML IV SCH (12:00)
== END 2022-09-19 17:10 | disposition home or self-care (01) | DRG 871 ==
LOC: ED 16:53 → MEDSUR 21:10 → ICU 09-15 20:07
PROVIDERS: ADMIT Internal Medicine; ATTEND Internal Medicine

== ENCOUNTER 2024-06-06 23:15 | Inpatient (IN) ==
[2024-06-06] MEDS ORDERED: IOPAMIDOL 100 ML BOTTLE IV ONE (23:16)
[2024-06-07] MEDS: 0.9 % SODIUM CHLORIDE 1,000 ML IV ONE (00:14)
[2024-06-07] MEDS: IPRATROPIUM/ALBUTEROL 3 ML AMPUL.NEB NEB ONE (00:16)
[2024-06-07] MEDS: ACETAMINOPHEN 1,000 MG/100 ML BAG IV ONE (00:43)
[2024-06-07 00:57] LABS: Basophils # (Auto) 0.01 K/mcL (0.00-0.30); Basophils % (Auto) 0.1 % (0.0-2.0); Eosinophils # (Auto) 0 K/mcL (0.00-0.70); Eosinophils % (Auto) 0 % (0.0-7.0); Hematocrit 37.8 % (40.1-51.0); Hemoglobin 12.6 g/dL (13.7-17.5); Lymphocytes # (Auto) 0.76 K/mcL (1.50-4.80); Lymphocytes % (Auto) 6.8 % (15.5-49.0); Mean Cell Volume 89.4 fL (80.0-100.0); Mean Corpuscular HGB Conc 33.3 g/dL (31.0-36.0); Mean Platelet Volume 10.3 fL (8.8-12.5); Monocytes # (Auto) 0.66 K/mcL (0.10-0.90); Monocytes % (Auto) 5.9 % (1.0-12.0); Neutrophils % (Auto) 86.8 % (38.0-78.0); Platelet Count 114 K/mcL (140-440); RBC 4.23 M/mcL (4.63-6.08); Red Cell Distribution Width 16.3 % (11.5-14.5); WBC 11.1 K/mcL (4.5-11.0)
[2024-06-07 01:03] LABS: ALT/SGPT 15 U/L (<40); AST/SGOT 24 U/L (<40); Albumin 3.8 gm/dL (3.2-5.2); Albumin/Globulin Ratio 1.1 (1.0-2.3); Alkaline Phosphatase 130 U/L (39-117); Bilirubin,Total 2.2 mg/dL (0.1-1.0); Blood Urea Nitrogen 27 mg/dL (6-20); Carbon Dioxide 23 mmol/L (22-30); Chloride 95 mmol/L (96-108); Globulin 3.4 gm/dL (2.2-3.7); Glomerular Filtration Rate 51; Glucose 295 mg/dL (70-105); Potassium 4.2 mmol/L (3.3-5.1); Sodium 134 mmol/L (133-145)
[2024-06-07] MEDS ORDERED: guaiFENesin/DEXTROMETHORPHAN 5ML UD CUP PO PRN (09:21)
[2024-06-07] MEDS: cefTRIAXone 1 GM VIAL IV ONE (09:31)
[2024-06-07] MEDS: AZITHROMYCIN 500 MG in DEXTROSE 5% IN WATER 250 ML IV ONE (09:31)
[2024-06-07] MEDS ORDERED: DEXTROSE 31 GM ORAL.SUSP PO PRN (11:16)
[2024-06-07] MEDS ORDERED: IPRATROPIUM 2.5 ML AMPUL.NEB NEB PRN (11:16)
[2024-06-07] MEDS ORDERED: traZODone HCL 50 MG TABLET PO PRN (11:16)
[2024-06-07] MEDS ORDERED: ONDANSETRON 4 MG/2 ML VIAL IV PRN (11:16)
[2024-06-07] MEDS ORDERED: DEXTROSE 50% 50 ML VIAL IV PRN (11:16)
[2024-06-07] MEDS: INSULIN LISPRO 1 UNIT/0.01 ML UNIT SQ SCH ×2 (11:31→17:20)
[2024-06-07] MEDS: 0.9 % SODIUM CHLORIDE 1,000 ML IV SCH (11:56)
[2024-06-07] MEDS: IPRATROPIUM/ALBUTEROL 3 ML AMPUL.NEB NEB SCH (11:56)
[2024-06-07 12:07] LABS: Basophils # (Auto) 0.01 K/mcL (0.00-0.30); Basophils % (Auto) 0.1 % (0.0-2.0); Eosinophils # (Auto) 0 K/mcL (0.00-0.70); Eosinophils % (Auto) 0 % (0.0-7.0); Hematocrit 37.5 % (40.1-51.0); Hemoglobin 12.5 g/dL (13.7-17.5); Lymphocytes # (Auto) 0.51 K/mcL (1.50-4.80); Lymphocytes % (Auto) 6.4 % (15.5-49.0); Mean Cell Volume 89.3 fL (80.0-100.0); Mean Corpuscular HGB Conc 33.3 g/dL (31.0-36.0); Mean Platelet Volume 10.5 fL (8.8-12.5); Monocytes # (Auto) 0.45 K/mcL (0.10-0.90); Monocytes % (Auto) 5.6 % (1.0-12.0); Neutrophils % (Auto) 87.5 % (38.0-78.0); Platelet Count 107 K/mcL (140-440); Red Cell Distribution Width 16.7 % (11.5-14.5)
[2024-06-07] MEDS: ACETAMINOPHEN 325 MG TABLET PO PRN (12:07)
[2024-06-07] MEDS: 0.9 % SODIUM CHLORIDE 10 ML SYRINGE IV SCH (12:40)
[2024-06-07] MEDS ORDERED: BACLOFEN 10 MG TABLET PO PRN (14:06)
[2024-06-07] MEDS ORDERED: LIDOCAINE 4% TOP PATCH TOPICAL PRN (14:08)
[2024-06-07] MEDS ORDERED: LORATADINE 10 MG TABLET PO PRN (14:30)
[2024-06-07] MEDS ORDERED: FEXOFENADINE 180 MG TABLET PO PRN (14:30)
[2024-06-07] MEDS: methylPREDNISolone SOD SUCC 125 MG/2 ML VIAL IV SCH (14:40)
[2024-06-07] MEDS: MELATONIN 3 MG TABLET PO SCH (20:46)
[2024-06-07] MEDS: LISINOPRIL 20 MG TABLET PO SCH (20:46)
[2024-06-07] MEDS: HEPARIN 5,000 UNIT/ML VIAL SQ SCH (20:47)
[2024-06-07] MEDS: INSULIN GLARGINE, HUMAN 1 UNIT/0.01 ML SQ SCH (20:47)
[2024-06-07] MEDS: SENNOSIDES 1 TABLET PO SCH (20:48)
[2024-06-07] MEDS: DOCUSATE SODIUM 100 MG CAPSULE PO SCH (20:48)
[2024-06-08 06:54] LABS: Basophils # (Auto) 0.02 K/mcL (0.00-0.30); Basophils % (Auto) 0.2 % (0.0-2.0); Eosinophils # (Auto) 0 K/mcL (0.00-0.70); Eosinophils % (Auto) 0 % (0.0-7.0); Hematocrit 34.2 % (40.1-51.0); Hemoglobin 11.1 g/dL (13.7-17.5); Lymphocytes # (Auto) 0.35 K/mcL (1.50-4.80); Mean Cell Volume 91.4 fL (80.0-100.0); Mean Corpuscular HGB Conc 32.5 g/dL (31.0-36.0); Mean Platelet Volume 10.3 fL (8.8-12.5); Monocytes % (Auto) 1.2 % (1.0-12.0); Platelet Count 132 K/mcL (140-440); RBC 3.74 M/mcL (4.63-6.08); Red Cell Distribution Width 16.1 % (11.5-14.5); WBC 8.7 K/mcL (4.5-11.0)
[2024-06-08 07:32] LABS: ALT/SGPT 11 U/L (<40); AST/SGOT 18 U/L (<40); Albumin 3.6 gm/dL (3.2-5.2); Albumin/Globulin Ratio 1.1 (1.0-2.3); Alkaline Phosphatase 120 U/L (39-117); Blood Urea Nitrogen 29 mg/dL (6-20); Calcium 8.9 mg/dL (8.6-10.4); Carbon Dioxide 15 mmol/L (22-30); Chloride 96 mmol/L (96-108); Globulin 3.4 gm/dL (2.2-3.7); Glomerular Filtration Rate 66; Glucose 393 mg/dL (70-105); Potassium 4.8 mmol/L (3.3-5.1); Sodium 135 mmol/L (133-145)
[2024-06-08] MEDS ORDERED: VANCOMYCIN PER PHARMACY IV SCH (08:17)
[2024-06-08] MEDS: DILTIAZEM 180 MG CAP.XL.24H PO SCH (08:47)
[2024-06-08] MEDS: INSULIN LISPRO 1 UNIT/0.01 ML UNIT SQ SCH ×3 (08:47→15:30)
[2024-06-08] MEDS: VITAMIN D3 25 MCG TABLET PO SCH (08:48)
[2024-06-08] MEDS: AZITHROMYCIN 250 MG TABLET PO SCH (08:48)
[2024-06-08] MEDS: GLIMEPIRIDE 2 MG TABLET PO SCH (08:57)
[2024-06-08] MEDS: cefTRIAXone 2 GM in DEXTROSE 5% IN WATER 50 ML IV SCH (08:57)
[2024-06-08] MEDS: VANCOMYCIN 2,000 MG in 0.9 % SODIUM CHLORIDE 500 ML IV SCH (10:27)
[2024-06-08] MEDS: IPRATROPIUM/ALBUTEROL 3 ML AMPUL.NEB NEB SCH (12:00)
[2024-06-08] MEDS ORDERED: DEXTROSE 50% 50 ML VIAL IV PRN (12:10)
[2024-06-08] MEDS ORDERED: DEXTROSE 31 GM ORAL.SUSP PO PRN (12:10)
[2024-06-08 13:19] LABS: Estimated Average Glucose(eAG) 146 mg/dL; Hemoglobin A1C 6.7 % Hgb (4.0-6.0)
[2024-06-08] MEDS ORDERED: INSULIN LISPRO 1 UNIT/0.01 ML UNIT SQ SCH (17:00)
[2024-06-09 06:31] LABS: Basophils # (Auto) 0 K/mcL (0.00-0.30); Basophils % (Auto) 0 % (0.0-2.0); Eosinophils # (Auto) 0 K/mcL (0.00-0.70); Eosinophils % (Auto) 0 % (0.0-7.0); Hematocrit 32.3 % (40.1-51.0); Hemoglobin 10.6 g/dL (13.7-17.5); Lymphocytes # (Auto) 0.45 K/mcL (1.50-4.80); Lymphocytes % (Auto) 5.9 % (15.5-49.0); Mean Cell Volume 89.2 fL (80.0-100.0); Mean Corpuscular HGB Conc 32.8 g/dL (31.0-36.0); Mean Platelet Volume 10.2 fL (8.8-12.5); Monocytes # (Auto) 0.31 K/mcL (0.10-0.90); Neutrophils % (Auto) 89.7 % (38.0-78.0); Platelet Count 130 K/mcL (140-440); RBC 3.62 M/mcL (4.63-6.08); Red Cell Distribution Width 15.9 % (11.5-14.5); WBC 7.7 K/mcL (4.5-11.0)
[2024-06-09 08:41] LABS: ALT/SGPT 8 U/L (<40); AST/SGOT 14 U/L (<40); Albumin 3.3 gm/dL (3.2-5.2); Alkaline Phosphatase 104 U/L (39-117); Bilirubin,Total 0.4 mg/dL (0.1-1.0); Blood Urea Nitrogen 29 mg/dL (6-20); Calcium 8.8 mg/dL (8.6-10.4); Carbon Dioxide 20 mmol/L (22-30); Chloride 103 mmol/L (96-108); Globulin 3.2 gm/dL (2.2-3.7); Glomerular Filtration Rate 94; Glucose 266 mg/dL (70-105); Sodium 136 mmol/L (133-145)
[2024-06-09] MEDS: predniSONE 20 MG TABLET PO SCH (09:10)
[2024-06-09] MEDS: ATORVASTATIN 40 MG TABLET PO ONE (16:59)
[2024-06-09] MEDS: ENOXAPARIN 40 MG/0.4 ML SYRINGE SQ SCH (20:18)
[2024-06-10 07:07] LABS: Basophils # (Auto) 0 K/mcL (0.00-0.30); Basophils % (Auto) 0 % (0.0-2.0); Eosinophils # (Auto) 0 K/mcL (0.00-0.70); Eosinophils % (Auto) 0 % (0.0-7.0); Hematocrit 31.1 % (40.1-51.0); Hemoglobin 10.3 g/dL (13.7-17.5); Lymphocytes # (Auto) 0.78 K/mcL (1.50-4.80); Lymphocytes % (Auto) 15.1 % (15.5-49.0); Mean Cell Volume 89.4 fL (80.0-100.0); Mean Corpuscular HGB Conc 33.1 g/dL (31.0-36.0); Mean Platelet Volume 10.2 fL (8.8-12.5); Monocytes # (Auto) 0.35 K/mcL (0.10-0.90); Monocytes % (Auto) 6.8 % (1.0-12.0); Neutrophils % (Auto) 76.6 % (38.0-78.0); Platelet Count 130 K/mcL (140-440); RBC 3.48 M/mcL (4.63-6.08); Red Cell Distribution Width 15.7 % (11.5-14.5); WBC 5.2 K/mcL (4.5-11.0)
[2024-06-10 07:53] LABS: ALT/SGPT 14 U/L (<40); AST/SGOT 16 U/L (<40); Albumin 3.3 gm/dL (3.2-5.2); Albumin/Globulin Ratio 1.1 (1.0-2.3); Alkaline Phosphatase 98 U/L (39-117); Bilirubin,Total 0.4 mg/dL (0.1-1.0); Blood Urea Nitrogen 23 mg/dL (6-20); Calcium 8.8 mg/dL (8.6-10.4); Carbon Dioxide 22 mmol/L (22-30); Chloride 105 mmol/L (96-108); Globulin 2.9 gm/dL (2.2-3.7); Glomerular Filtration Rate 104; Glucose 212 mg/dL (70-105); Potassium 3.3 mmol/L (3.3-5.1); Sodium 139 mmol/L (133-145)
[2024-06-10] MEDS ORDERED: 0.9 % SODIUM CHLORIDE 10 ML SYRINGE IV PRN (08:38)
[2024-06-10] MEDS: ATORVASTATIN 40 MG TABLET PO SCH (08:59)
[2024-06-10] MEDS: 0.9 % SODIUM CHLORIDE 10 ML SYRINGE IV SCH (09:02)
[2024-06-10] MEDS: ceFAZolin 1 GM VIAL IV SCH (12:45)
[2024-06-10] MEDS ORDERED: IOPAMIDOL 100 ML BOTTLE IV ONE (13:53)
[2024-06-10] MEDS: POTASSIUM CHLORIDE 20 MEQ TABLET PO SCH (18:16)
[2024-06-11] MEDS ORDERED: ATORVASTATIN 40 MG TABLET PO SCH (09:00)
== END 2024-06-10 19:19 | disposition short-term general hospital (02) | DRG 871 ==
LOC: ED 23:15 → MEDSUR 06-07 11:00
PROVIDERS: ADMIT Internal Medicine; ATTEND Internal Medicine